=== PATIENT | female | born 1955 | race Caucasian/White ===

== ENCOUNTER → 2016-07-05 | Outpatient (CLI) | payer MEDICARE, MEDICAID ==
[~2016-07-05] MED LIST: /ADVA50050 INH; /DULO30CA OR; /ONDA4TA; ACET500C; ASPI81TA63 OR; DARV100T; DEPA500T2; FIORICET OR; FLEXERIL; LIDO5DIS TD; Maxalt OR; NEUR100C; NEUR100C OR; PLAV75TA2 OR; PROP10TAB OR; SKEL800T5 OR; SOMA350T OR; THERGRAN; VENTAER INH; VICODINES TAB OR; VOLT1GEL; ZOMI5TAB
--- NOTE | 2016-07-05 16:58 | REPMRS ---
Patient History The patient states she has not had a clinical breast exam in over a year. Patient is postmenopausal. Family history of ovarian cancer in maternal aunt, pancreatic cancer in maternal aunt, and colorectal cancer in maternal aunt. Benign stereotactic core biopsy of the left breast. Digital Woman Screen Mammo: July 05, 2016 - Exam #: [id number] Bilateral CC and MLO view(s) were taken. Technologist: Rufina Mauricio, Technologist Prior study comparison: September 29, 2011, digital bilateral screening mammo, performed at [facility]. August 19, 2009, bilateral screening mammogram, performed at [facility]. May 29, 2008, bilateral screening mammogram, performed at [facility]. FINDINGS: There are scattered fibroglandular densities. There has been no change in the appearance of the mammogram from the prior studies. There is a mild amount of scattered fibroglandular density which is fairly symmetric. There is no interval development of dominant mass, architectural distortion, or clustered microcalcification suggestive of malignancy. ASSESSMENT: BI-RADS/ACR category 1 mammogram. Negative. Recommendation Routine screening mammogram in 1 year (for women over age 40). This mammogram was interpreted with the aid of an FDA-approved computer-aided dectection system. Electronically Signed By: Christiano Haq MD 07/05/16 [id number]
--- NOTE | 2016-07-07 09:10 | DEXA ---
AP SPINE L1 - L4 1.191 0.0 0.8 LT FEMUR TOTAL 1.016 0.1 0.7 RT FEMUR TOTAL 0.968 -0.3 0.3 TOTAL BODY TOTAL OTHER DUAL FEMUR FRAX* ASSESSMENT Risk factors: Tobacco user. 10 year probability of fracture Major osteoporotic fracture 7.7 % Hip fracture 1.0 % COMMENTS: Normal bone densitometry of the spine. There is low bone density of hips. The density of the spine is decreased 11.2% since the initial exam on 2002. The spine density is decreased 7.5% since the most recent exam on 08/19/2009. The density of the left hip has decreased 7.7% since the initial exam on 2002. The density of the left hip has decreased 2.6% since the most recent exam on 04/2010. The density of the right hip has decreased 10.6% since the initial exam on 08/11. The density of the right hip has decreased 4.5% since the most recent exam on . FOLLOW-UP: Recommendation for the next bone density exam: 2 years. SARAHD
== END ==
LOC: M WHC 13:07
PROVIDERS: ATTEND Family Medicine
DX: Z12.31 Encounter for screening mammogram for malignant neoplasm of breast (principal); Z13.820 Encounter for screening for osteoporosis; Z78.0 Asymptomatic menopausal state; Z92.89 Personal history of other medical treatment
CPT/HCPCS: 77080; G0202

== ENCOUNTER → 2016-08-30 | Outpatient (CLI) | payer MEDICAID, MEDICARE ==
--- NOTE | 2016-08-30 11:36 | REP ---
Clinical: Lung screening. History of smoking. Technique: Axial low-dose imaging using lung screening technique. Comparison: None. Findings: There is a suspicious, 3.4 x 2.2 cm soft tissue lesion in the right apex (images 14 - 23) lower lobe on glass opacity/atelectasis also noted. The mediastinum is incompletely evaluated and adenopathy cannot be discerned. No pleural effusion. No pneumothorax. Skeletal structures intact. Impression: Lung-RADS category 4X lesion is suspicious for neoplasm and further workup is advised. Consider biopsy, contrast enhanced chest CT, or PET CT. Signed by Nacho Herron MD 08/30/2016 11:28 A
== END ==
LOC: M RAD 10:51
PROVIDERS: ATTEND Family Medicine
DX: Z12.2 Encounter for screening for malignant neoplasm of respiratory organs (principal); F17.210 Nicotine dependence, cigarettes, uncomplicated; R93.8 Abnormal findings on diagnostic imaging of other specified body structures

== ENCOUNTER → 2016-09-07 | Outpatient (REF) | payer MEDICARE ==
[2016-09-07 14:18] LABS: INR 0.98
== END ==
LOC: M LAB REF 13:45
PROVIDERS: ATTEND Internal Medicine Pulmonary Disease
DX: Z01.818 Encounter for other preprocedural examination (principal); R91.1 Solitary pulmonary nodule

== ENCOUNTER → 2016-09-20 | Outpatient (CLI) | payer MEDICARE ==
--- NOTE | 2016-09-20 14:22 | REP ---
PET/CT: History: Solitary pulmonary nodule. Comparisons: Low-dose lung cancer screening chest CT study August 30, 2016 TECHNIQUE: 71 minutes following the intravenous injection of a 7.8 mCi dose of F-18 FDG, three-dimensional PET scintigraphy is acquired from the skull base to the proximal thighs. Triplanar noncontrast CT scanning is acquired through the same anatomic range for attenuation correction, and image registration with scan parameters optimized to minimize radiation exposure to the patient. PET scintigraphy and CT datasets were fused and displayed on a workstation with multiplanar and projection display capability. PET/CT Findings: There is hypermetabolic uptake in a bilobed right upper lobe lung mass corresponding to the findings on recent screening lung CT. Maximum standard uptake value in this lesion is 10.0. No hypermetabolic hilar or mediastinal uptake is seen. Head and neck soft tissues are unremarkable. No axillary hypermetabolic uptake is seen. There is a small 12 mm nodule in the lateral limb of the left adrenal gland but this is not hypermetabolic. No abnormal hypermetabolic uptake is seen in the abdomen or pelvis. Post cholecystectomy clips are seen. No abnormal skeletal hypermetabolic uptake is observed. Impression: The known right upper lobe lung mass is hypermetabolic, as to be value 10.0. No other abnormal hypermetabolic uptake is appreciated. Signed by Garo Haq MD 09/20/2016 02:13 P
== END ==
LOC: M RAD 08:46
PROVIDERS: ATTEND Internal Medicine Pulmonary Disease
DX: R91.1 Solitary pulmonary nodule (principal)
CPT/HCPCS: 78815; A9552

== ENCOUNTER → 2016-09-28 | Outpatient (REF) | payer MEDICARE, MEDICAID ==
[~2016-09-28] MED LIST changes: +ADV500INH INH; +ALB2.5NEB INH; +ASPI1TAB PO; +BUTACAP78 PO; +DULO1CAP3 PO; +MAGN1TAB25 PO; +MEMA1TAB PO; +NEUR300C PO; +OXYC30TA72 PO; +PLAV75TA38 PO; +PROA1AER INH; +PROT1TAB2 PO; +ROPI0.5T PO; +SENN8.6T54 PO; +ZALE10CA PO; +ZANA4TAB PO; +ZONI100C2 PO
[2016-09-28 11:37] LABS: MEAN CORPUSCULAR HEMOGLOBIN 25.7 pg (27.0-33.0); MEAN CORPUSCULAR HGB CONC 31.3 g/dl (32.0-36.5); MEAN CORPUSCULAR VOLUME 82.1 fl (80.0-96.0); RED CELL DISTRIBUTION WIDTH 14.8 % (11.5-14.5)
== END ==
LOC: M SFHCPLAZ 10:18
PROVIDERS: ATTEND Family Medicine
DX: K62.5 Hemorrhage of anus and rectum (principal)
CPT/HCPCS: 36415; 85027; 99497; G0463

== ENCOUNTER → 2016-10-05 | Outpatient (CLI) | payer MEDICARE ==
[~2016-10-05] MED LIST changes: +ACETAMINOPHEN 325 MG TAB As Ordered ONE; +FLUMAZENIL 0.5 MG/5 ML VIAL As Ordered ONE; +LIDOCAINE 1% MDV 20ML VIAL As Ordered ONE; +MIDAZOLAM INJ 2 MG/2 ML VIAL (J2250) As Ordered ONE; +PERCOCET 5MG/325MG TAB As Ordered ONE
--- NOTE | 2016-10-05 13:36 | REP ---
POSTBIOPSY CHEST: Single PA view of the chest is performed following right lung biopsy. There is a small right apical pneumothorax. Air gap is 2.8 cm maximally. Right upper lobe nodule is seen. Mild atelectatic changes are seen in the lung bases. IMPRESSION: Small right apical pneumothorax status post right lung biopsy. Signed by Quinn Cavazos MD 10/05/2016 04:50 P
--- NOTE | 2016-10-05 22:32 | REP ---
CHEST, SINGLE VIEW: Single view of the chest is performed, status post right lung biopsy. Small right apical pneumothorax is unchanged since the most recent examination of 2:35 pm. Air gap is about 3.7 cm. There are no other acute changes. IMPRESSION: Stable small right apical pneumothorax. Signed by Quinn Cavazos MD 10/06/2016 04:33 P
--- NOTE | 2016-10-05 23:25 | REP ---
POST BIOPSY CHEST: Post biopsy chest radiograph performed. Right apical pneumothorax has a maximum air gap of 4 cm, mildly increased since the prior study. There are again atelectatic changes in each lung base. IMPRESSION: Slight increase in right apical pneumothorax. Signed by Quinn Cavazos MD 10/06/2016 04:33 P
--- NOTE | 2016-10-06 05:49 | REP ---
CT GUIDED RIGHT UPPER LOBE LUNG BIOPSY: The procedure was performed under the direct supervision of Dr. Cavazos. The patient has a history of a 3.4 x 2.2 cm soft tissue lesion in the right apex seen on a previous CT scan dated 08/30/2016. This was seen as hypermetabolic on a previous PET scan performed on 09/20/2016. The risks and benefits of the procedure were explained to the patient and informed consent was obtained. The right upper lobe lung mass was localized using CT guidance. The skin was prepped and draped in a sterile fashion. 1% Xylocaine was used as a local anesthetic. Using CT guidance, a 19-20 gauge co-axial needle biopsy system was inserted and advanced into the mass. Four core biopsy samples were obtained and sent to the lab. The patient tolerated the procedure well and there were no immediate complications. On the 2 hour followup post biopsy chest x-ray, the patient had developed a small right apical pneumothorax. Dr. Gomez was made aware of these findings at the time of the procedure. Another chest x-ray performed 2 hours later showed a small increase in the size of the pneumothorax. Another chest x-ray was performed 1 hour later and showed that the pneumothorax is stable. The patient will be released home and will come back tomorrow morning for a followup chest x-ray. Her O2 saturations on room air are 94% as they were when she arrived. The patient complained of minimal amount of chest discomfort. Her vital signs are stable. Reviewed by PATRICK Miller 10/06/2016 05:30 PEdited and Signed by Quinn Cavazos MD 10/09/2016 05:33 P
== END ==
LOC: M RADPRO 09:13
PROVIDERS: ATTEND Internal Medicine Pulmonary Disease
DX: C34.90 Malignant neoplasm of unspecified part of unspecified bronchus or lung (principal); J95.811 Postprocedural pneumothorax; Z72.0 Tobacco use; Z88.8 Allergy status to other drugs, medicaments and biological substances; Z79.82 Long term (current) use of aspirin; Z79.899 Other long term (current) drug therapy

== ENCOUNTER 2016-10-06 07:56 | Inpatient (IN) | payer MEDICARE ==
[~2016-10-06] VITALS: Ht 167.6 cm; Wt 85.3 kg
[~2016-10-06 07:56] MED LIST changes: -ACETAMINOPHEN 325 MG TAB As Ordered ONE; -ADV500INH INH; -ALB2.5NEB INH; -ASPI1TAB PO; -BUTACAP78 PO; -DULO1CAP3 PO; -FLUMAZENIL 0.5 MG/5 ML VIAL As Ordered ONE; -LIDOCAINE 1% MDV 20ML VIAL As Ordered ONE; -MAGN1TAB25 PO; -MEMA1TAB PO; -MIDAZOLAM INJ 2 MG/2 ML VIAL (J2250) As Ordered ONE; -NEUR300C PO; -OXYC30TA72 PO; -PERCOCET 5MG/325MG TAB As Ordered ONE; -PLAV75TA38 PO; -PROA1AER INH; -PROT1TAB2 PO; -ROPI0.5T PO; -SENN8.6T54 PO; -ZALE10CA PO; -ZANA4TAB PO; -ZONI100C2 PO
--- NOTE | 2016-10-06 08:38 | REP ---
CHEST: Single PA expiratory view of the chest is performed. Right pneumothorax is again seen. It is mildly increased in size. The air gap at the apex is 4.7 cm. There are mild atelectatic changes in the lung bases. IMPRESSION: Mild increase in size of right pneumothorax compared to prior study of 10/05/2016. Signed by Quinn Cavazos MD 10/06/2016 04:35 P
[2016-10-06] MEDS ORDERED: KCL 20MEQ IN D5/NS 1000ML 1,000 ML IV SCH (09:36)
[2016-10-06] MEDS ORDERED: NORCO, ANEXSIA 5/325MG TABLET (HYDROcodone/ACETAMINOPHEN) PO PRN (09:45)
[2016-10-06] MEDS ORDERED: LEVALBUTEROL 1.25 MG/0.5 ML CONCENTRATE NEB NEB PRN (09:45)
[2016-10-06] MEDS ORDERED: BISACODYL 10 MG SUPP PR PRN (09:45)
[2016-10-06] MEDS ORDERED: PERCOCET 5MG/325MG TAB PO PRN ×2 (09:45)
[2016-10-06] MEDS ORDERED: ACETAMINOPHEN TAB 650MG DOSE (2X325MG) PO PRN (09:45)
[2016-10-06 10:37] LABS: BASO % 0.3 % (0.0-1.0); EOS # 0.1 K/mm3 (0.0-0.50); LARGE UNSTAINED CELL # 0.1 K/mm3 (0.0-0.4); LARGE UNSTAINED CELL % 1.6 % (0.0-4.0); LYMPH # 2.5 K/mm3 (1.5-4.5); LYMPH % 32.3 % (24.0-44.0); MEAN CORPUSCULAR HEMOGLOBIN 26.8 pg (27.0-33.0); MEAN CORPUSCULAR HGB CONC 32.6 g/dl (32.0-36.5); MEAN CORPUSCULAR VOLUME 82.2 fl (80.0-96.0); MONO # 0.4 K/mm3 (0.0-0.8); MONO % 4.9 % (0.0-5.0); NEUTROPHILS # 4.7 K/mm3 (1.8-7.7); PLATELET COUNT, AUTOMATED 319 k/mm3 (150-450); RED CELL DISTRIBUTION WIDTH 14.8 % (11.5-14.5); WHITE BLOOD COUNT 7.8 K/mm3 (4.0-10.0)
[2016-10-06] MEDS ORDERED: PLAV75TA38 PO (10:55)
[2016-10-06] MEDS ORDERED: SENN8.6T54 PO (10:55)
[2016-10-06] MEDS ORDERED: PROA1AER INH (10:55)
[2016-10-06] MEDS ORDERED: ZALE10CA PO (10:55)
[2016-10-06] MEDS ORDERED: DULO1CAP3 PO (10:55)
[2016-10-06] MEDS ORDERED: MEMA1TAB PO (10:55)
[2016-10-06] MEDS ORDERED: ZONI100C2 PO (10:55)
[2016-10-06] MEDS ORDERED: NEUR300C PO (10:55)
[2016-10-06] MEDS ORDERED: BUTACAP78 PO (10:55)
[2016-10-06] MEDS ORDERED: ADV500INH INH (10:55)
[2016-10-06] MEDS ORDERED: ASPI1TAB PO (10:55)
[2016-10-06] MEDS ORDERED: OXYC30TA72 PO (10:55)
[2016-10-06] MEDS ORDERED: ROPI0.5T PO (10:55)
[2016-10-06] MEDS ORDERED: ZANA4TAB PO (10:57)
[2016-10-06] MEDS ORDERED: MAGN1TAB25 PO (10:57)
[2016-10-06 10:58] LABS: ANION GAP 6 MEQ/L (8-16); BLOOD UREA NITROGEN 12 MG/DL (7-18); CALCIUM LEVEL 8.9 MG/DL (8.8-10.2); CARBON DIOXIDE LEVEL 28 MEQ/L (21-32); CHLORIDE LEVEL 107 MEQ/L (98-107); CREATININE FOR GFR 0.98 MG/DL (0.55-1.02); GLOMERULAR FILTRATION RATE > 60.0 (>45); GLUCOSE, FASTING 100 MG/DL (80-110); SODIUM LEVEL 141 MEQ/L (136-145)
[2016-10-06] MEDS ORDERED: PROT1TAB2 PO (10:58)
[2016-10-06] MEDS ORDERED: ALB2.5NEB INH (10:59)
--- NOTE | 2016-10-06 11:33 | REP ---
Chest one-view HISTORY: Pneumothorax Comparison: 08:14 a.m. 10/06/2016 Increased density is present in the lower lobes and right upper lobe consistent with atelectasis or infiltrate. The heart is normal in size. The pulmonary vasculature is normal in appearance. A chest tube is present in the right hemithorax. A very small right pneumothorax is present. Impression 1. Bibasilar and right upper lobe atelectasis or infiltrates. 2. Very small right pneumothorax. Signed by Artemio Joaquin MD 10/06/2016 11:25 A
[2016-10-06 12:00] VITALS: BP 149/86
[2016-10-06] MEDS: DOCUSATE SODIUM 100 MG CAP PO SCH ×2 (12:41→21:13)
[2016-10-06] MEDS: HEPARIN SOD (PORCINE) 5000 UNITS/ML VIAL SC SCH ×2 (12:41→21:12)
[2016-10-06] MEDS: PANTOPRAZOLE 40MG INJ (PROTONIX) (C9113) IV SCH (12:41)
[2016-10-06] MEDS: MOM 30ML SUSPENSION UDC PO SCH (12:41)
[2016-10-06] MEDS: KETOROLAC 30 MG/ML VIAL (J1885) IV SCH ×2 (12:43→18:29)
[2016-10-06] MEDS: ONDANSETRON 4MG/2ML VIAL (J2405) IV PRN (13:20)
[2016-10-06] MEDS: LEVALBUTEROL 1.25 MG/0.5 ML CONCENTRATE NEB NEB SCH ×2 (13:25→18:52)
[2016-10-06] MEDS: GABAPENTIN 300 MG CAP PO SCH ×2 (15:25→21:13)
[2016-10-06] MEDS: ASPIRIN 81 MG ENTERIC TAB PO SCH (15:26)
[2016-10-06] MEDS: DULoxetine 30 MG CAP (CYMBALTA) PO SCH (15:26)
[2016-10-06 16:00] VITALS: BP 126/62
[2016-10-06] MEDS ORDERED: tiZANidine 4 MG TAB PO PRN (16:45)
--- NOTE | 2016-10-06 17:27 | HPE ---
DATE OF ADMISSION: 10/06/2016 Patient seen at the request of Dr. Cavazos of Radiology. The patient underwent a lung biopsy today and sustained a pneumothorax, which has gotten bigger with more symptomatology of shortness of breath and discomfort. HISTORY OF THE PRESENT ILLNESS: The patient is a 60-year-old white female who was first seen by Dr. Gomez at the end of August for evaluation of a screening CT scan, which showed a right-sided lesion. This was thought to be suspicious for carcinoma given her long smoking history and was referred for a needle biopsy. The patient is not able to give a very accurate history of being short of breath today; however, Dr. Gomez noted that she had a cough, which was productive of thick, brown sputum. She denies hemoptysis but felt that she was wheezing. She had shortness of breath by walking half a block and could not climb a flight of stairs. She also noted chest pressure and heaviness when she was doing activities, such as vacuuming and lifting. She also feels lying flat and was sleeping in a recliner for 4-5 years. She experiences paroxysmal nocturnal dyspnea (PND) on a nightly basis. There was no fever or chills but has transient night sweats that she has had for quite a while. She has not lost any weight but rather gained weight. PAST MEDICAL HISTORY: Migraines. Obstructive sleep apnea. History of cerebrovascular accident with residual left-sided weakness. Hiatal hernia. Gastroesophageal reflux disease (GERD). Mood swings with depression. Dementia. Tobacco abuse. PAST SURGICAL HISTORY: In the remote past, a cholecystectomy and a hysterectomy. MEDICATIONS AT HOME: Include: - Advair Diskus 500/50 one puff twice a day - Ventolin HFA two puffs four times a day as needed for shortness of breath - OxyContin 30 mg twice a day for chronic pain - gabapentin 300 mg three times a day - 5 mg as needed for pain - albuterol sulfate 2.5 mg four times a day as needed for shortness of breath - aspirin 81 mg daily - magnesium 400 mg daily - zonisamide 100 mg twice a day - Plavix 75 mg daily - duloxetine 60 mg daily - memantine 5 mg twice a day - pantoprazole 40 mg daily - trazodone 50 mg nightly TRAVEL HISTORY: She has traveled to [place] and [place] in the past. This is no foreign travel. EXPOSURES: She has one dog at home. No cats or birds. No tuberculosis exposure. 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 HABITS: Smokes anywhere from one to three packs per day. She has cut down recently to one pack a day, but has had a history of smoking three packs a day for the past 40 years. No alcohol. REVIEW OF SYSTEMS: CONSTITUTIONAL: See history of the present illness. EYES: Without diplopia. Without transient monocular blindness. Without prior jaundice. NOSE: Without epistaxis. MOUTH: RESPIRATORY: See history of the present illness. CARDIAC: See history of the present illness. Without prior myocardial infarction. GASTROINTESTINAL: Without nausea, vomiting, diarrhea, constipation, melena, hematochezia. GENITOURINARY: Without hematuria or dysuria. ENDOCRINE: Without diagnosed diabetes or hypothyroidism. HEMATOLOGIC: With easy bruisability on her Plavix. NEUROLOGIC: Has memory problems and confusion with left-sided weakness. There is a history of a cerebrovascular accident in the past. PSYCHIATRIC: Per history of the present illness. FAMILY HISTORY: Mother at the age of 80 with leukemia and father at 86 with kidney disease and heart disease. PHYSICAL EXAMINATION: Well developed, well nourished, white female in slightly some acute distress with shortness of breath and chest discomfort on the right side. VITAL SIGNS: Temperature 96.5, pulse 59 with a regular rate and rhythm, respiratory rate of 20 without the use of accessory muscles. She is 99% saturated on 4 liters nasal cannula and blood pressure is 149/86. EYES: Pupils equal, round and reactive to light. Extraocular motor intact. Sclerae nonicteric. NOSE: Without deformity. MOUTH: Shows her mucous membranes to be pink and moist. Lips and commissures without lesions. There is no thrush. NECK: Neck is supple. There is no jugular venous distention. No subcutaneous emphysema. Trachea is midline. There is no lymphadenopathy. She has 2+ carotid upstrokes. No bruits. LUNGS: Show markedly decreased breath sounds on the right side with a hyperresonant percussion note on the right side. Left side shows normal vesicular sounds. CARDIAC: Exam is without murmurs, clicks, gallops or rubs. I cannot feel her point of maximum impulse (PMI). S1, S2 are normal. ABDOMEN: Soft, nontender. Bowel sounds are positive. There is no hepatomegaly. No costovertebral angle tenderness. EXTREMITIES: Show no pretibial edema, no calf tenderness. No differential swelling of the upper extremities. SKIN: Warm, dry and perfused without cyanosis or mottling, including that of the nail beds and the knees. NEUROLOGIC: Shows II-XII grossly intact. Gross motor and gross sensation intact. Gait is not tested. PSYCHIATRIC: Shows her to be awake and alert, oriented times three with appropriate mood and affect and conversational. Her white count today is 7.8 with a hemoglobin and hematocrit of 11.5 and 35.3 and a platelet count of 319. Differential shows 60% neutrophils, 32% lymphocytes, 4% monocytes. There are no immature forms, no toxic granulations. Electrolytes are normal with a BUN and creatinine of 12 and 0.98, a glucose of 100 and a calcium of 8.9. Her chest x-ray shows a 40-50% pneumothorax on the right side. Costophrenic angles are sharp. Mediastinum is in the midline. Her CT scan done on 08/30/2016 as a screening exam shows a 3-1/2 x 2 cm spiculated mass in the right upper lobe. There is some ground glass atelectatic changes in the lower lobes. I do not see significant mediastinal lymphadenopathy. It is done as a screening CT, and there are no tissue windows. Adrenals look grossly intact, and I see no lesions on the liver on the lung windows. IMPRESSION: 1. Right pneumothorax, status post biopsy yesterday, worsening. 2. Right upper lobe lung mass. Final pathology pending. 3. Chronic obstructive pulmonary disease. 4. Early dementia. 5. Migraines. 6. Obstructive sleep apnea. 7. History of cerebrovascular accident. 8. Hiatal hernia. 9. Gastroesophageal reflux disease. 10. Chronic pain. PLAN AND DISCUSSION: I will place a chest tube immediately. We will then follow her in the hospital as the lung comes up and stays up. We will see if she has a continued air leak. We will await pathology results, whether or not she is and out of the hospital and make recommendations from there. 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 It should be noted that her pulmonary function tests (PFTs) show an FEV1 of 2.02, which is 76% of predicted and a diffusing capacity of 17.68, which was 80% of predicted on a PFT done on 09/13/2016.
--- NOTE | 2016-10-06 17:29 | RO ---
DATE OF PROCEDURE: 10/06/2016 PREPROCEDURE DIAGNOSIS: Pneumothorax, status post biopsy yesterday, increasing in size and shortness of breath. POSTPROCEDURE DIAGNOSIS: Pneumothorax, status post biopsy yesterday, increasing in size and shortness of breath. PROCEDURE: Insertion of right anterior chest tube. SURGEON: Dr. Ankur Helms ROPING MACHINE TENDER: ANESTHESIA: DESCRIPTION OF PROCEDURE: Under satisfactory moderate sedation, achieved with 3 mg of Versed, the patient was prepped and draped in the usual sterile fashion. Incision was made over the second rib and a tunnel was created in the intercostal space. A #20 chest tube was placed without difficulty and secured to the chest wall with a #2 Tevdek suture. Chest tube was connected to suction. The patient tolerated the procedure well and a chest x-ray is pending.
[2016-10-06 20:00] VITALS: BP 123/59
[2016-10-06] MEDS: ZONISAMIDE 100 MG CAP (ZONEGRAN) PO SCH (21:12)
[2016-10-06] MEDS: MEMANTINE 5MG TABLET (NAMENDA) PO SCH (21:12)
[2016-10-06] MEDS: rOPINIRole 0.25 MG TAB(REQUIP) PO SCH (21:12)
[2016-10-06] MEDS: ADVAIR DISKUS 500/50 INH PWD INH SCH (22:23)
[2016-10-06 23:59] VITALS: BP 123/60
[2016-10-07] VITALS (7 sets, daily range): BP systolic 118–159; BP diastolic 56–78; O2SAT 91
[2016-10-07] MEDS: KETOROLAC 30 MG/ML VIAL (J1885) IV SCH ×4 (00:55→18:15)
[2016-10-07] MEDS: LEVALBUTEROL 1.25 MG/0.5 ML CONCENTRATE NEB NEB SCH ×4 (02:12→19:05)
[2016-10-07 05:28] LABS: BASO % 0.3 % (0.0-1.0); EOS # 0.1 K/mm3 (0.0-0.50); LARGE UNSTAINED CELL # 0.1 K/mm3 (0.0-0.4); LARGE UNSTAINED CELL % 1.7 % (0.0-4.0); LYMPH # 1.9 K/mm3 (1.5-4.5); LYMPH % 25.1 % (24.0-44.0); MEAN CORPUSCULAR HEMOGLOBIN 26.6 pg (27.0-33.0); MEAN CORPUSCULAR HGB CONC 31.8 g/dl (32.0-36.5); MEAN CORPUSCULAR VOLUME 83.5 fl (80.0-96.0); MONO # 0.4 K/mm3 (0.0-0.8); MONO % 5.3 % (0.0-5.0); NEUTROPHILS # 5.1 K/mm3 (1.8-7.7); NEUTROPHILS % 66.5 % (36.0-66.0); PLATELET COUNT, AUTOMATED 290 k/mm3 (150-450); RED CELL DISTRIBUTION WIDTH 14.9 % (11.5-14.5); WHITE BLOOD COUNT 7.6 K/mm3 (4.0-10.0)
[2016-10-07 05:40] LABS: ANION GAP 6 MEQ/L (8-16); BLOOD UREA NITROGEN 16 MG/DL (7-18); CALCIUM LEVEL 8.3 MG/DL (8.8-10.2); CARBON DIOXIDE LEVEL 28 MEQ/L (21-32); CHLORIDE LEVEL 109 MEQ/L (98-107); GLOMERULAR FILTRATION RATE > 60.0 (>45); GLUCOSE, FASTING 132 MG/DL (80-110); POTASSIUM SERUM 3.9 MEQ/L (3.5-5.1); SODIUM LEVEL 143 MEQ/L (136-145)
[2016-10-07] MEDS: ADVAIR DISKUS 500/50 INH PWD INH SCH ×2 (07:42→20:05)
[2016-10-07] MEDS: MOM 30ML SUSPENSION UDC PO SCH (08:41)
[2016-10-07] MEDS: DOCUSATE SODIUM 100 MG CAP PO SCH ×2 (08:42→20:55)
[2016-10-07] MEDS: ZONISAMIDE 100 MG CAP (ZONEGRAN) PO SCH ×2 (08:42→20:55)
[2016-10-07] MEDS: CLOPIDOGREL 75 MG TAB PO SCH (08:42)
[2016-10-07] MEDS: GABAPENTIN 300 MG CAP PO SCH ×3 (08:42→20:55)
[2016-10-07] MEDS: ASPIRIN 81 MG ENTERIC TAB PO SCH (08:42)
[2016-10-07] MEDS: PANTOPRAZOLE 40MG INJ (PROTONIX) (C9113) IV SCH (08:42)
[2016-10-07] MEDS: MEMANTINE 5MG TABLET (NAMENDA) PO SCH ×2 (08:42→20:55)
[2016-10-07] MEDS: DULoxetine 30 MG CAP (CYMBALTA) PO SCH (08:42)
[2016-10-07] MEDS: ONDANSETRON 4MG/2ML VIAL (J2405) IV PRN (10:40)
--- NOTE | 2016-10-07 15:07 | REP ---
CHEST, TWO VIEWS: HISTORY: Pneumothorax. Linear densities are present in the lower lobes, consistent with atelectasis. The heart is normal in size. The pulmonary vasculature is normal in appearance. A chest tube is present in the right hemithorax. There is no definite pneumothorax. IMPRESSION: 1. Bibasilar atelectasis. 2. There is no pneumothorax. A chest tube is present in the right hemithorax. Signed by Artemio Joaquin MD 10/07/2016 09:02 A
[2016-10-07] MEDS: rOPINIRole 0.25 MG TAB(REQUIP) PO SCH (20:55)
[2016-10-08] VITALS (8 sets, daily range): BP systolic 102–166; BP diastolic 56–80
[2016-10-08] MEDS: KETOROLAC 30 MG/ML VIAL (J1885) IV SCH ×4 (01:21→18:48)
[2016-10-08] MEDS: LEVALBUTEROL 1.25 MG/0.5 ML CONCENTRATE NEB NEB SCH ×4 (02:00→20:00)
[2016-10-08] MEDS ORDERED: SLF 3 ML SYR IV PRN (04:15)
[2016-10-08 05:30] LABS: BASO % 0.3 % (0.0-1.0); EOS # 0.1 K/mm3 (0.0-0.50); EOS % 0.9 % (0.0-3.0); LARGE UNSTAINED CELL # 0.2 K/mm3 (0.0-0.4); LARGE UNSTAINED CELL % 1.5 % (0.0-4.0); LYMPH # 2.5 K/mm3 (1.5-4.5); LYMPH % 23.7 % (24.0-44.0); MEAN CORPUSCULAR HEMOGLOBIN 25.3 pg (27.0-33.0); MEAN CORPUSCULAR HGB CONC 30.1 g/dl (32.0-36.5); MEAN CORPUSCULAR VOLUME 84.2 fl (80.0-96.0); MONO # 0.5 K/mm3 (0.0-0.8); MONO % 5.4 % (0.0-5.0); NEUTROPHILS # 6.7 K/mm3 (1.8-7.7); NEUTROPHILS % 68.2 % (36.0-66.0); PLATELET COUNT, AUTOMATED 300 k/mm3 (150-450); WHITE BLOOD COUNT 9.8 K/mm3 (4.0-10.0)
[2016-10-08 05:50] LABS: ANION GAP 7 MEQ/L (8-16); BLOOD UREA NITROGEN 10 MG/DL (7-18); CALCIUM LEVEL 7.9 MG/DL (8.8-10.2); CARBON DIOXIDE LEVEL 26 MEQ/L (21-32); CHLORIDE LEVEL 108 MEQ/L (98-107); CREATININE FOR GFR 0.95 MG/DL (0.55-1.02); GLOMERULAR FILTRATION RATE > 60.0 (>45); GLUCOSE, FASTING 114 MG/DL (80-110); POTASSIUM SERUM 4.3 MEQ/L (3.5-5.1); SODIUM LEVEL 141 MEQ/L (136-145)
[2016-10-08] MEDS: SLF 3 ML SYR IV SCH ×3 (06:03→21:00)
[2016-10-08] MEDS: ADVAIR DISKUS 500/50 INH PWD INH SCH ×2 (07:44→20:02)
--- NOTE | 2016-10-08 08:42 | IPN ---
DATE: 10/07/2016 This is the first hospital day for Mrs. Ojeda after a right upper lobe mass lung biopsy. Her pain is being well controlled at the chest tube insertion site. Today she complains of rectal bleeding. The nurse confirms that it is bright red blood per rectum. Rectal exam does not show any hemorrhoids. Her vital signs show a T-max of 99.1, with a heart rate that ranges between 81 and 75 and is sinus rhythm with a respiratory rate that is constant at 20. She is 91 to 95% saturated on 4 liters nasal cannula and her blood pressure is ranging between 137/70 to 130/71. Her intake and output the past 24 hours has been recorded as 1365 in and 475 out for a positivity of 890 mL. There is no air leak and there is nothing out the chest tube. Weight today is 83.7 kg compared to 82.2 kg yesterday. On physical examination her lungs show normal vesicular sounds on either side with equal breath sounds on either side. Percussion note is full to the diaphragm. Cardiac exam is without murmurs, clicks, gallops or rubs. I cannot feel her PMI. S1 and S2 are normal. Abdomen is soft, nontender. Bowel sounds are positive. There is no hepatomegaly. No CVA tenderness. Extremities show no pretibial edema. No calf tenderness. No differential swelling of the upper extremities. Skin is warm, dry and perfused without cyanosis or mottling, including that of the nail beds and the knees. Neck is supple. There is no jugular venous distention (JVD). No subcutaneous emphysema. Trachea is midline. Mouth shows his mucous membranes to be pink and moist. Lips and commissures without lesions. No thrush. Eyes show her pupils to be equal and reactive. Extraocular motors intact. Sclera nonicteric. Neuro showed II through XII intact along with gross motor and gross sensation intact. Gait is not tested. Psychiatric shows her to be awake and alert, oriented times three with appropriate and affect and conversational. Rectal shows no hemorrhoids, no fissures. Her white count today is 7.6 with hemoglobin and hematocrit of 11.3 and 35.5, unchanged from yesterday, with a platelet count of 290 and stable. Differential shows 66% neutrophils, 25% lymphocytes, 5% monocytes. There are no immature forms. No toxic granulations. Electrolytes are normal with a BUN and creatinine of 16 and 1.0 and a glucose of 132 with a calcium of 8.3. Her chest x-ray today shows the lung fully expanded to the chest wall. Chest tube is in good place and there is no residual airspace. The costophrenic angles are sharp and there are no infiltrates either on the PA or the lateral views. IMPRESSION: 1. Pneumothorax status post lung biopsy. 2. Right upper lobe mass, final pathology pending. 3. Chronic obstructive pulmonary disease (COPD). 4. Early dementia. 5. Migraines. 6. Obstructive sleep apnea (YAKELIN). 7. History of cerebrovascular accident (CVA) in the past. 8. Hiatal hernia. 9. Gastroesophageal reflux disease (GERD). 10. Chronic pain. 11. Hematochezia. PLAN AND DISCUSSION: She has an appointment with Dr. Lim in November and I will try to move that up. I do not think she needs to be evaluated in the hospital at this point in time and I will discontinue her chest tube suction. Will take a chest x-ray tomorrow. If the lung is still up I will remove the chest tube in the morning.
[2016-10-08] MEDS: ASPIRIN 81 MG ENTERIC TAB PO SCH (09:22)
[2016-10-08] MEDS: ZONISAMIDE 100 MG CAP (ZONEGRAN) PO SCH ×2 (09:22→21:00)
[2016-10-08] MEDS: MOM 30ML SUSPENSION UDC PO SCH (09:23)
[2016-10-08] MEDS: GABAPENTIN 300 MG CAP PO SCH ×3 (09:23→21:00)
[2016-10-08] MEDS: CLOPIDOGREL 75 MG TAB PO SCH (09:23)
[2016-10-08] MEDS: PANTOPRAZOLE 40MG TAB (PROTONIX) PO SCH (09:23)
[2016-10-08] MEDS: MEMANTINE 5MG TABLET (NAMENDA) PO SCH ×2 (09:23→21:00)
[2016-10-08] MEDS: DOCUSATE SODIUM 100 MG CAP PO SCH ×2 (09:23→21:00)
[2016-10-08] MEDS: DULoxetine 30 MG CAP (CYMBALTA) PO SCH (09:23)
[2016-10-08] MEDS ORDERED: FUROSEMIDE 40 MG/4 ML VIAL (J1940) IV ONE (11:15)
[2016-10-08] MEDS: oxyCODONE 15 MG CR TAB PO SCH ×2 (11:25→21:00)
--- NOTE | 2016-10-08 15:08 | REP ---
CHEST, TWO VIEWS: HISTORY: Pneumothorax. COMPARISON: 10/07/2016 Linear densities are present in the lower lobes, consistent with atelectasis. The heart is normal in size. The pulmonary vasculature is normal in appearance. A chest tube is present in the right hemithorax. There is no definite pneumothorax. IMPRESSION: 1. Bibasilar atelectasis. 2. There is no pneumothorax. A chest tube is present in the right hemithorax. Signed by Artemio Joaquin MD 10/08/2016 03:19 P
[2016-10-08] MEDS: ONDANSETRON 4MG/2ML VIAL (J2405) IV PRN ×2 (16:24→21:00)
[2016-10-08] MEDS: rOPINIRole 0.25 MG TAB(REQUIP) PO SCH (21:00)
[2016-10-09] MEDS: KETOROLAC 30 MG/ML VIAL (J1885) IV SCH ×2 (01:00→06:05)
[2016-10-09] MEDS: LEVALBUTEROL 1.25 MG/0.5 ML CONCENTRATE NEB NEB SCH ×2 (01:18→08:00)
[2016-10-09 04:10] VITALS: BP 110/58
[2016-10-09 05:10] LABS: BASO % 0.1 % (0.0-1.0); EOS # 0.1 K/mm3 (0.0-0.50); EOS % 0.9 % (0.0-3.0); LARGE UNSTAINED CELL # 0.1 K/mm3 (0.0-0.4); LARGE UNSTAINED CELL % 1.4 % (0.0-4.0); LYMPH # 1.8 K/mm3 (1.5-4.5); LYMPH % 20.4 % (24.0-44.0); MEAN CORPUSCULAR HEMOGLOBIN 26.1 pg (27.0-33.0); MEAN CORPUSCULAR HGB CONC 31.6 g/dl (32.0-36.5); MEAN CORPUSCULAR VOLUME 82.5 fl (80.0-96.0); MONO # 0.5 K/mm3 (0.0-0.8); MONO % 5.4 % (0.0-5.0); NEUTROPHILS # 6.4 K/mm3 (1.8-7.7); NEUTROPHILS % 71.7 % (36.0-66.0); PLATELET COUNT, AUTOMATED 263 k/mm3 (150-450); RED CELL DISTRIBUTION WIDTH 15.2 % (11.5-14.5); WHITE BLOOD COUNT 8.9 K/mm3 (4.0-10.0)
[2016-10-09 05:24] LABS: CALCIUM LEVEL 7.9 MG/DL (8.8-10.2); CREATININE FOR GFR 1.03 MG/DL (0.55-1.02); GLOMERULAR FILTRATION RATE 58.2 (>45); POTASSIUM SERUM 3.6 MEQ/L (3.5-5.1)
[2016-10-09] MEDS: SLF 3 ML SYR IV SCH (06:00)
[2016-10-09 08:00] VITALS: BP 122/65
--- NOTE | 2016-10-09 08:20 | IPN ---
DATE: 10/08/2016 Ms. Ojeda's pain is being well controlled at chest tube insertion site. She is not coughing and she not complaining of any shortness of breath. Most significantly she had a bowel movement this morning and there was no blood in the stool. Her vital signs show a T-max of 99.8, with a heart rate that ranges between 88 and 96 with a respiratory rate of 18 to 20 without the use of accessory muscles. She is 94 to 95% saturated on room air and her blood pressure is ranging between 166/80 to 132/58. Her intake and output the past 24 hours has been recorded as 2575 in and 1016 out for a positivity of 1400 mL. There is no air leak and she has put out 16 mL from the chest tube. Weight today is 84.8 kg compared to 83.7 kg yesterday. On physical examination she has bibasilar coarse rhonchi on either side during inspiration. These do not completely clear with coughing. Her percussion is full to the diaphragm. Cardiac exam is without murmurs, clicks, gallops or rubs. I cannot feel her PMI. S1 and S2 are normal. Abdomen is soft, nontender. Bowel sounds are positive. There is no hepatomegaly. No CVA tenderness. Extremities show no pretibial edema. No calf tenderness. No differential swelling of the upper extremities. Skin is warm, dry and perfused without cyanosis or mottling, including that of the nail beds and the knees. Neck is supple. There is no jugular venous distention (JVD). No subcutaneous emphysema. Trachea is midline. Mouth shows her mucous membranes to be pink and moist. Lips and commissures without lesions. No thrush. Eyes show her pupils to be equal and reactive. Extraocular motors intact. Sclera nonicteric. Neuro showed II through XII intact along with gross motor and gross sensation intact. Gait is not tested. Psychiatric shows her to be awake and alert, oriented times three with appropriate mood and affect and conversational. Her white count today is 9.8 with hemoglobin and hematocrit of 10.2 and 34.0 and a platelet count of 300 which stable. Differential shows 68% neutrophils, 25% lymphocytes, 5% monocytes. There are no immature forms. No toxic granulations. Her electrolytes are normal with a BUN and creatinine of 10 and 0.95 with a glucose of 114 with a calcium of 7.9. Her chest x-ray shows the lung fully expanded to the chest wall on underwater seal chest tube. Her chest tube is in good place. The costophrenic angles are sharp. I do not see any infiltrates although there may be a little bit of fluid in the fissure. The right upper lobe mass is see on the lateral chest x-ray as well as the PA film. IMPRESSION: 1. Pneumothorax status post lung biopsy right side. 2. Right upper lobe mass, final pathology pending. 3. Chronic obstructive pulmonary disease (COPD). 4. Early dementia. 5. Migraines. 6. Obstructive sleep apnea (YAKELIN). 7. Cerebrovascular accident (CVA) in the past. 8. Hiatal hernia. 9. Gastroesophageal reflux disease (GERD). 10. Chronic back pain. 11. Hematochezia. PLAN AND DISCUSSION: She is complaining of back pain which she chronically has. She is on OxyContin 30 every day and I will restart that rather than the Percocet. I will discontinue her chest tubes. If the lung remains inflated tomorrow, we will plan for discharge in the morning. I will contact Dr. Lim in the morning to see if we can move up her appointment to an earlier date.
[2016-10-09] MEDS: ADVAIR DISKUS 500/50 INH PWD INH SCH (08:52)
[2016-10-09] MEDS: PANTOPRAZOLE 40MG TAB (PROTONIX) PO SCH (08:55)
[2016-10-09] MEDS: GABAPENTIN 300 MG CAP PO SCH (08:55)
[2016-10-09] MEDS: DULoxetine 30 MG CAP (CYMBALTA) PO SCH (08:56)
[2016-10-09] MEDS: ASPIRIN 81 MG ENTERIC TAB PO SCH (08:56)
[2016-10-09] MEDS: CLOPIDOGREL 75 MG TAB PO SCH (08:56)
[2016-10-09] MEDS: oxyCODONE 15 MG CR TAB PO SCH (08:57)
[2016-10-09] MEDS: DOCUSATE SODIUM 100 MG CAP PO SCH (08:57)
[2016-10-09] MEDS: ZONISAMIDE 100 MG CAP (ZONEGRAN) PO SCH (08:58)
[2016-10-09] MEDS: MOM 30ML SUSPENSION UDC PO SCH (08:58)
[2016-10-09] MEDS: MEMANTINE 5MG TABLET (NAMENDA) PO SCH (08:58)
--- NOTE | 2016-10-09 10:05 | DSES ---
DATE OF ADMISSION: 10/06/2016 DATE OF DISCHARGE: 10/09/2016 DISCHARGE DIAGNOSES: 1. Pneumothorax, status post lung biopsy right side. 2. Right upper lobe mass, final pathology pending. 3. Chronic obstructive pulmonary disease (COPD). 4. Early dementia. 5. Migraines. 6. Obstructive sleep apnea (YAKELIN). 7. Status post cerebrovascular accident in the past. 8. Hiatal hernia. 9. Gastroesophageal reflux disease (GERD). 10. Chronic back pain. 11. Hematochezia. HOSPITAL COURSE: Patient is a 60-year-old white female who had a CT screening early lung cancer detection scan, which found a right upper lobe lesion. She underwent a needle biopsy with a resultant pneumothorax. She was acutely short of breath, and a chest tube was placed urgently. Lung reinflated well, and there was no prolonged air leak. Chest tube was removed on the second hospital day with her lung fully expanded to the chest wall. She was also noted to have bright red blood per rectum on the first hospital day, which did not recur. She is seen in regular followup with Dr. Lim. Her chest tube was pulled on the second hospital day, and her chest x-ray on discharge showed the lung fully expanded to the chest wall. She is being discharged on her home medications, which include: - albuterol/ProAir two puffs four times a day as needed shortness of breath - aspirin 81 mg daily - Plavix 75 mg daily - Senna one tablet daily - duloxetine 60 mg daily - gabapentin 300 mg three times a day - magnesium oxide 400 mg daily - amantadine 5 mg twice a day - OxyContin 30 mg every 12 hours - Protonix 40 mg daily - ropinirole 0.5 mg nightly - Advair Diskus 500/50 one puff twice a day - Zanaflex 4 mg as needed muscle spasms - zaleplon 10 mg nightly - zonisamide 100 mg twice a day She will return to see me in 1 week with a chest x-ray for post hospitalization followup, along with discussion of the final pathology when it comes through. She will also see Dr. Lim within 2 weeks. I have spoken with Dr. Lim, and he is willing to move her already scheduled appointment in November up. Her discharge hemoglobin and hematocrit are 9.4 and 29.7 with a BUN and creatinine of 50 and 1.03. Electrolytes are normal. Edited: 10/11/2016 [id number]
== END 2016-10-09 10:19 | disposition home or self-care (01) | DRG 200 ==
LOC: M RAD 07:56 → M PCU 09:39
PROVIDERS: ADMIT Thoracic Surgery (Cardiothoracic Vascular Surgery); ATTEND Internal Medicine Pulmonary Disease
PROC: 0W993ZZ Drainage of Right Pleural Cavity, Percutaneous Approach (ICD-10-PCS; principal; 2016-10-06)
DX: J95.811 Postprocedural pneumothorax (principal); C34.11 Malignant neoplasm of upper lobe, right bronchus or lung; I69.354 Hemiplegia and hemiparesis following cerebral infarction affecting left non-dominant side; K62.5 Hemorrhage of anus and rectum; F17.210 Nicotine dependence, cigarettes, uncomplicated; J44.9 Chronic obstructive pulmonary disease, unspecified; G43.909 Migraine, unspecified, not intractable, without status migrainosus; F03.90 Unspecified dementia, unspecified severity, without behavioral disturbance, psychotic disturbance, mood disturbance, and anxiety; G47.33 Obstructive sleep apnea (adult) (pediatric); K21.9 Gastro-esophageal reflux disease without esophagitis; K44.9 Diaphragmatic hernia without obstruction or gangrene; Z90.49 Acquired absence of other specified parts of digestive tract; Z90.710 Acquired absence of both cervix and uterus; Z79.02 Long term (current) use of antithrombotics/antiplatelets; Z79.82 Long term (current) use of aspirin; Z79.899 Other long term (current) drug therapy

== ENCOUNTER → 2016-10-13 | Outpatient (CLI) | payer MEDICARE ==
[~2016-10-13] MED LIST changes: +ADV500INH INH; +ALB2.5NEB INH; +ASPI1TAB PO; +BUTACAP78 PO; +DULO1CAP3 PO; +MAGN1TAB25 PO; +MEMA1TAB PO; +NEUR300C PO; +OXYC30TA72 PO; +PLAV75TA38 PO; +PROA1AER INH; +PROT1TAB2 PO; +ROPI0.5T PO; +SENN8.6T54 PO; +ZALE10CA PO; +ZANA4TAB PO; +ZONI100C2 PO
--- NOTE | 2016-10-13 18:25 | REP ---
CHEST, TWO VIEWS: REASON: History of nodules. COMPARISON: 10/09/2016 The subcutaneous emphysema seen on the right has decreased. The discoid opacities seen in the lung bases have resolved. The lung lin are otherwise unchanged. The heart is not enlarged. There is no change in the osseous structures. IMPRESSION: As above. No evidence of acute cardiopulmonary disease. If the patient has a lung nodule then CT is recommended. Signed by Vinod Stephens DO 10/13/2016 07:20 P
== END ==
LOC: M SMT 09:32
PROVIDERS: ATTEND Thoracic Surgery (Cardiothoracic Vascular Surgery)
DX: R91.1 Solitary pulmonary nodule (principal)

== ENCOUNTER → 2016-10-30 | Outpatient (CLI) | payer MEDICARE ==
--- NOTE | 2016-10-30 12:28 | REP ---
Clinical: Malignant neoplasm. Technique: PA and lateral. Comparison: 10/13/2016. Findings: There is a vague irregular density suggested in the right upper lung zone predominantly projecting over the fourth posterior interspace. Remainder of lung lin appear stable and within normal limits. No further consolidation, effusion, or pneumothorax. Mediastinum and cardiac silhouette normal. Impression: A vague area of density in the right upper lung zone Signed by Nacho Herron MD 10/30/2016 12:20 P
== END ==
LOC: M SMT 11:40
PROVIDERS: ATTEND Thoracic Surgery (Cardiothoracic Vascular Surgery)
DX: C34.11 Malignant neoplasm of upper lobe, right bronchus or lung (principal)

== ENCOUNTER → 2016-11-21 | Outpatient (CLI) | payer MEDICARE, MEDICAID ==
[~2016-11-21] VITALS: Ht 165.1 cm; Wt 80.7 kg
[~2016-11-21] MED LIST changes: +ATOR40TA PO; +LIDOCAINE 2% INJ 100 MG/5 ML SDV (FOR ANES.) As Ordered ONE; +METO25TA74 PO; +NS 1,000 ML IV ONE; +PROPOFOL 200 MG/20 ML VIAL As Ordered ONE; +fentaNYL 100 MCG/2 ML INJECTION (J3010) As Ordered ONE
--- NOTE | 2016-11-21 08:45 | ROOR ---
Patient Name: Sabrina Ojeda Procedure Date: 11/21/2016 8:29 AM Date of : 1955 Age: 61 Room: [facility] Gender: Female Note Status: Finalized Procedure: Upper Endoscopy + Biopsies Indications: Epigastric abdominal pain Providers: Nestor Lim MD Referring MD: Janeth Traore MD Requesting Provider: Medicines: Monitored Anesthesia Care Complications: No immediate complications. Procedure: Pre-Anesthesia Assessment: - The heart rate, respiratory rate, oxygen saturations, blood pressure, adequacy of pulmonary ventilation, and response to care were monitored throughout the procedure. The Endoscope was introduced through the mouth, and advanced to the second part of duodenum. The upper GI endoscopy was accomplished without difficulty. The patient tolerated the procedure well. Findings: The Z-line was regular and was found 40 cm from the incisors. Diffuse mild inflammation characterized by congestion (edema) and erythema was found in the gastric antrum. Biopsies were taken with a cold forceps for Helicobacter pylori testing. The exam of the duodenum was otherwise normal. Impression: - Z-line regular, 40 cm from the incisors. - Acute gastritis. Biopsied. - The examination was otherwise normal. Recommendation: - Patient has a contact number available for emergencies. The signs and symptoms of potential delayed complications were discussed with the patient. Return to normal activities tomorrow. Written discharge instructions were provided to the patient. - High fiber diet. - Discharge patient to home. - Follow an antireflux regimen. - Continue present medications. - Await pathology results. - Telephone GI clinic for pathology results in 1 week. - Return to referring physician. - The findings and recommendations were discussed with the patient's family. Nestor Lim MD Nestor Lim MD 11/21/2016 8:45:17 AM This report has been signed electronically. Number of Addenda: 0 Note Initiated On: 11/21/2016 8:29 AM Estimated Blood Loss: Estimated blood loss: none.
--- NOTE | 2016-11-21 09:14 | ROOR ---
Patient Name: Sabrina Ojeda Procedure Date: 11/21/2016 8:30 AM Date of : 1955 Age: 61 Room: [facility] Gender: Female Note Status: Finalized Procedure: Total Colonoscopy to cecum + Bx. Indications: Rectal bleeding Providers: Nestor Lim MD Referring MD: Janeth Traore MD Requesting Provider: Medicines: Monitored Anesthesia Care Complications: No immediate complications. Procedure: Pre-Anesthesia Assessment: - The heart rate, respiratory rate, oxygen saturations, blood pressure, adequacy of pulmonary ventilation, and response to care were monitored throughout the procedure. The Colonoscope was introduced through the anus and advanced to the cecum, identified by appendiceal orifice and ileocecal valve. The colonoscopy was performed without difficulty. The patient tolerated the procedure well. The quality of the bowel preparation was poor. Findings: The perianal and digital rectal examinations were normal. An ulcerated partially obstructing large mass was found from 10 to 15 cm proximal to the anus. The mass was partially circumferential (involving two-thirds of the lumen circumference). The mass measured five cm in length. No bleeding was present. Mucosa was biopsied with a cold forceps for histology. Multiple small and large-mouthed diverticula were found in the recto-sigmoid colon, sigmoid colon and descending colon. A single (solitary) ulcer was found in the mid ascending colon. No bleeding was present. No stigmata of recent bleeding were seen. Biopsies were taken with a cold forceps for histology. The exam was otherwise without abnormality. Impression: - Preparation of the colon was poor. - Rule out malignancy, partially obstructing tumor from 10 to 15 cm proximal to the anus. Biopsied. - Diverticulosis in the recto-sigmoid colon, in the sigmoid colon and in the descending colon. - A single (solitary) ulcer in the mid ascending colon. Biopsied. - The examination was otherwise normal. - The examination was otherwise normal. Recommendation: - Patient has a contact number available for emergencies. The signs and symptoms of potential delayed complications were discussed with the patient. Return to normal activities tomorrow. Written discharge instructions were provided to the patient. - Discharge patient to home. - Continue present medications. - Await pathology results. - Return to referring physician. - Refer to a surgeon. - Telephone GI clinic for pathology results. - Check Portal Online for Path Results.([email or web address]) - The findings and recommendations were discussed with the patient's family. Nestor Lim MD Nestor Lim MD 11/21/2016 9:13:51 AM This report has been signed electronically. Number of Addenda: 0 Note Initiated On: 11/21/2016 8:30 AM Estimated Blood Loss: Estimated blood loss: none.
[2016-11-21 09:35] VITALS: BP 119/66
== END | disposition home or self-care (01) ==
LOC: M OPP 07:21
PROVIDERS: ATTEND Internal Medicine Gastroenterology
DX: C18.9 Malignant neoplasm of colon, unspecified (principal); K63.3 Ulcer of intestine; K57.30 Diverticulosis of large intestine without perforation or abscess without bleeding; R10.13 Epigastric pain; K21.9 Gastro-esophageal reflux disease without esophagitis; K29.00 Acute gastritis without bleeding; B96.81 Helicobacter pylori [H. pylori] as the cause of diseases classified elsewhere; I10 Essential (primary) hypertension; E78.00 Pure hypercholesterolemia, unspecified; M79.7 Fibromyalgia; M19.90 Unspecified osteoarthritis, unspecified site; I69.398 Other sequelae of cerebral infarction; F03.90 Unspecified dementia, unspecified severity, without behavioral disturbance, psychotic disturbance, mood disturbance, and anxiety; F33.9 Major depressive disorder, recurrent, unspecified; R56.9 Unspecified convulsions; G43.909 Migraine, unspecified, not intractable, without status migrainosus; J44.9 Chronic obstructive pulmonary disease, unspecified; G47.30 Sleep apnea, unspecified; Z87.891 Personal history of nicotine dependence; Z79.899 Other long term (current) drug therapy; Z79.82 Long term (current) use of aspirin; Z79.51 Long term (current) use of inhaled steroids; Z79.01 Long term (current) use of anticoagulants; Z88.5 Allergy status to narcotic agent; Z88.8 Allergy status to other drugs, medicaments and biological substances
CPT/HCPCS: 36415; 43239; 45380; 82378; 88305; 88313; J3010

== ENCOUNTER → 2016-11-29 | Outpatient (CLI) | payer MEDICARE, MEDICAID ==
[~2016-11-29] MED LIST changes: +GASTROGRAFIN SOLUTION 30ML (Q9963) As Ordered ONE; +ISOVUE-370 76% 100ML VIAL (Q9967) As Ordered ONE; -LIDOCAINE 2% INJ 100 MG/5 ML SDV (FOR ANES.) As Ordered ONE; -NS 1,000 ML IV ONE; -PROPOFOL 200 MG/20 ML VIAL As Ordered ONE; -fentaNYL 100 MCG/2 ML INJECTION (J3010) As Ordered ONE
--- NOTE | 2016-11-29 17:50 | REP ---
CT ABDOMEN PELVIS WITH IV AND ORAL CONTRAST: 11/29/2016. Clinical history: Colon CA rectal mass. She also has a known apex lung carcinoma. Technique: Oral Gastrografin mixture 10 mL and 290 mL of flavored water for two doses of our bowel contrast per protocol along with 100 mL as Isovue 370 scanning through the abdomen and pelvis with delayed images through the liver. Sagittal and coronal reconstructions provided. Findings: No prior pertinent study. CT abdomen: The lung bases show minor dependent atelectatic change on the right. Some underlying fibrotic change. No effusion, infiltrate, nodule or mass in the lung bases. Heart not enlarged. No pericardial thickening or effusion and no hiatal hernia. Stomach well distended with retained food and some oral contrast. Liver is mildly prominent. The right hepatic lobe with a vertical diameter of 18.6 cm. There is no splenomegaly, focal hepatic or splenic lesion evident on equilibrium and delayed phase images. Clips from prior cholecystectomy are noted. Pancreas unremarkable. Adrenal glands intact. Kidneys show function without obstruction, mass or stone. There is no hydronephrosis or hydroureter. Atherosclerotic calcification of the aorta without aneurysm and no periaortic or other mesenteric/retroperitoneal pathologic sized lymphadenopathy in the abdomen proper. Appendix is seen and unremarkable. Fatty ileocecal valve is noted. The terminal ileum grossly unremarkable. Some questionable wall thickening of the cecum and right colon without definite mass or stricture. Stool and contrast are mixed in this location. There is scattered stool in the proximal right colon, flexures and transverse colon through the left colon. I do not see diverticulitis or colitis. Small bowel loops in the abdomen were unremarkable. There is no ventral hernia. Bone windows show lumbar and lower thoracic spine without compression deformity of destructive lesion. There is no spondylolysis. The visualized ribs and the lower chest were unremarkable. CT pelvis: Thickening of the distal rectal wall and anal verge suggested axial and sagittal images. Cannot exclude mass in this location versus proctitis collapse. Rectosigmoid junction shows wall thickening circumferential fashion with mild stricturing suspicious for malignancy. Could be focal colitis as well. No pelvic free fluid. Extensive diverticulosis of the distal left colon and sigmoid above the level of the stricture and mucosal thickening of the distal sigmoid. Small bowel loops grossly intact. No ventral or inguinal hernia. Impression: 1. Distal left sigmoid colon to the junction with the rectum with thickened wall and infiltration of adjacent fat, suspicious for colonic malignancy. No gross adenopathy, however The differential consideration of focal colitis. 2. Likewise thickening distal rectum and anal verge could also represent mass or focal proctitis. 3. The small bowel loops unremarkable. The remainder of the colon shows extensive diverticulosis without diverticulitis of the distal left colon and proximal midsigmoid above the level of the stricture. 4. Sigmoid and proximal right colon have questionable wall thickening but stool and contrast seen in this region and no inflammatory changes in the fat adjacent. No other areas of colitis, diverticulitis, stricture or mass. 5. Liver, spleen, kidneys, adrenal glands, pancreas, gallbladder, stomach were unremarkable. Signed by Gera Sarkar MD 11/29/2016 08:25 P
== END ==
LOC: M RAD 15:10
PROVIDERS: ATTEND Surgery
DX: C18.7 Malignant neoplasm of sigmoid colon (principal)
CPT/HCPCS: 74177; Q9963; Q9967

== ENCOUNTER 2016-12-22 10:20 | Inpatient (IN) | payer MEDICARE, MEDICAID ==
--- NOTE | 2016-12-20 09:28 | HPE ---
DATE OF ADMISSION: 12/22/2016 ADMITTING DIAGNOSIS: Rectal carcinoma. HISTORY OF PRESENT ILLNESS: The patient is a 61-year-old woman with a significant history of smoking cigarettes. She was referred for a screening CT of the chest based on her smoking history. This revealed a 3.4 x 2.2 cm soft tissue lesion in the right lower lobe. This was felt to be suspicious for carcinoma. This screening study was done on August 30, 2016 at [facility]. She subsequently underwent a CT-guided biopsy, which was performed on 10/05/2016. She developed a postbiopsy pneumothorax which led to placement of a chest tube and admission to [facility]. The biopsy confirmed moderate to poorly differentiated squamous cell carcinoma. In the course of her treatment for her pneumothorax and in preparation for surgery for her lung lesion, she complained of rectal bleeding. As a result of the rectal bleeding, she was referred to Dr. Lim of gastroenterology who performed an EGD and colonoscopy on November 21. The EGD revealed some diffuse mild inflammation of the gastric antrum. Biopsies revealed some mild chronic inflammation and a special stain was positive for Helicobacter Pylori. Her colonoscopy revealed a large partially circumferential mass extending from approximately 10 to 15 cm proximal to the anus. Biopsies revealed high-grade adenocarcinoma with mucinous features. The patient had a CEA level on November 21 that was 1.1. She has been discussed at the [facility] tumor board. 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 It was determined that proceeding with the surgery for her rectal cancer seemed to make more sense than doing the lung cancer first. She is now being admitted to undergo a robotic-assisted laparoscopic low anterior resection on December 22. She will be performing a mechanical and antibiotic bowel preparation utilizing SUPREP, neomycin, and Flagyl the day before admission. Because the tumor was not marked at the time of her colonoscopy, and to facilitate determination of the distal surgical margin, she will undergo spot marking of the distal margin for resection at the beginning of her surgical procedure. MEDICATION ALLERGIES: Are reported to 1. CODEINE, which apparently causes confusion. 2. TRAMADOL, which has led to nausea and vomiting. 3. VALPROIC ACID with an uncertain adverse reaction. 4. MORPHINE, which led to confusion. 5. DEPAKOTE, which she reports led to hair loss. CURRENT MEDICATIONS: Include: - tizanidine 4 mg p.o. t.i.d. as needed - OxyContin 30 mg p.o. q.12 h - duloxetine 60 mg delayed release once daily - clopidogrel 75 mg p.o. daily - aspirin 81 mg p.o. daily - zonisamide 100 mg one capsule twice daily - memantine 5 mg p.o. twice daily - Senexon S 1 tablet p.o. in the evening daily as needed - albuterol nebulizer four times daily as needed - Zofran 4 mg p.o. q. 6 hours as needed - gabapentin 300 mg three times daily - MiraLAX 17 grams p.o. daily at bedtime - rabeprazole 20 mg p.o. daily - Advair Diskus 500/50 micrograms one puff twice daily - Ventolin inhalation two puffs as needed every 4 hours - atorvastatin 40 mg p.o. once a day - metoprolol succinate ER 25 mg p.o. daily MEDICAL HISTORY: Significant for chronic neck and back pain. She has a history of fibromyalgia. She has suffered a stroke in 2007 and has followed with Dr. Joseph for some left arm and leg neuropathy. She reports a history of migraines and also carries a diagnosis of dementia. She has some chronic obstructive pulmonary disease. She has a history of sleep apnea. She has gastroesophageal reflux disease. She has some stress urinary incontinence. She did undergo a regadenoson cardiac stress test in November 2016, which was reportedly normal. SURGICAL HISTORY: Significant for a cholecystectomy in 1975. She had a hysterectomy in 1977. She underwent a left breast biopsy in 1995. She had a bilateral salpingo-oophorectomy in 2007. She had a colonoscopy and EGD in 2011 and then again recently in November 2016. She had a benign nodule removed from her throat previously. She required a chest tube for her pneumothorax in September. SOCIAL HISTORY: The patient is a former smoker. She denies any alcohol use and uses no recreational drugs. She is not and is not working due to disability. FAMILY HISTORY: Noncontributory. REVIEW OF SYSTEMS: Patient has had some dark stools and on at least one occasion had some red rectal bleeding which led to her evaluation with colonoscopy recently. She reports some chest heaviness but denies any palpitations. She has some intermittent shortness of breath but denies any cough or sputum production or wheezing. She has no dysuria or hematuria. PHYSICAL EXAM: Reveals a pleasant woman in no obvious distress. Her height is recorded as 65 inches with a weight of 82 kg yielding a body mass index (BMI) of approximately 30. She is alert and oriented. Skin is warm and dry. Sclerae are anicteric. The neck is supple without mass or adenopathy. Heart exam shows a regular rate and rhythm. The lungs are clear to auscultation. Abdomen shows scars consistent with her prior surgery. She has an upper abdominal scar from her cholecystectomy and lower abdominal scarring consistent with her hysterectomy. There is no sign of hernia. She has active bowel sounds and the abdomen is soft and nontender. She has no inguinal adenopathy identified. Extremities are without edema. She has palpable radial and pedal pulses. A digital rectal examination reveals no definite mass palpable within reach of the examining finger. I have a sensation that the mass may be right at the tip of my finger during the exam based on some firmer tissue in this area. The sphincter tone is normal. LABORATORY STUDIES: The patient's most recent laboratory studies done at the hospital include a CBC on October 09 showing a white count of 8.9 with a hemoglobin of 9 and a hematocrit of 30. Her platelet count was 263,000. She had coags on September 07 that were normal. A basic medical profile on December 09 showed normal electrolytes with a creatinine of 1.03 and a glucose of 100. Her CEA as noted was 1.1 on November 21. She had a CT scan of her abdomen and pelvis done on November 29 and this revealed some thickening at the junction of the distal sigmoid colon and the rectum with infiltration of the adjacent fat but no gross adenopathy. There was no periaortic adenopathy and no sign of metastatic disease otherwise within the abdomen. Some postsurgical changes were noted consistent with her prior hysterectomy and cholecystectomy. IMPRESSION: 1. 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 2. 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 3. History of prior cerebrovascular accident. 4. Chronic neck and back pain. 5. Fibromyalgia. 6. Depression. 7. Dementia. 8. Chronic obstructive pulmonary disease. 9. Sleep apnea. 10. Stress urinary incontinence. PLAN: The patient is being brought into the hospital for admission on December 22 to undergo a robotic-assisted laparoscopic low anterior resection. There appears to be adequate distance to achieve an acceptable distal margin for her rectal resection and still to reestablish bowel continuity. She will perform a mechanical and antibiotic bowel preparation the day before admission. Her other medications will be continued. She was counseled regarding the plan for surgery. Risks include but are not limited to bleeding, infection, scarring, adverse drug reaction, need for further surgery, injury of internal organ, anastomotic leak, and hernia. She had an opportunity to ask questions. She will receive a dose of Entereg preoperatively as well as a dose of Invanz preoperatively. A Morejon catheter will be used in the perioperative period. If we can accomplish this laparoscopically, then I would not anticipate need for an epidural catheter. MTDD
[~2016-12-22] VITALS: Ht 165.1 cm; Wt 80.7 kg
[~2016-12-22 10:20] MED LIST changes: -ATOR40TA PO; +ATOR40TA75 PO; -GASTROGRAFIN SOLUTION 30ML (Q9963) As Ordered ONE; -ISOVUE-370 76% 100ML VIAL (Q9967) As Ordered ONE; +METO1TAB32 PO; -METO25TA74 PO; +PLAV1TAB2 PO; -PLAV75TA38 PO; -PROA1AER INH; +PROAAER10 INH
[2016-12-22] MEDS ORDERED: LR 1,000 ML IV ONE (10:45)
[2016-12-22] MEDS ORDERED: LR 1,000 ML IV SCH ×3 (10:45→22:15)
[2016-12-22] MEDS ORDERED: ERTAPENEM SODIUM 1 GM in NS MINI-BAG PLUS 50 ML IV ONE (10:45)
[2016-12-22 10:53] LABS: MEAN CORPUSCULAR HEMOGLOBIN 27.1 pg (27.0-33.0); MEAN CORPUSCULAR HGB CONC 32.7 g/dl (32.0-36.5); MEAN CORPUSCULAR VOLUME 82.9 fl (80.0-96.0); RED CELL DISTRIBUTION WIDTH 16.3 % (11.5-14.5)
[2016-12-22 11:32] LABS: ALBUMIN 3.5 GM/DL (3.2-5.2); ALBUMIN/GLOBULIN RATIO 0.73 (1.00-1.93); BILIRUBIN,TOTAL 0.6 MG/DL (0.2-1.0); CALCIUM LEVEL 9.1 MG/DL (8.8-10.2); CREATININE FOR GFR 1.09 MG/DL (0.55-1.02); GLOMERULAR FILTRATION RATE 54.3 (>45); POTASSIUM SERUM 3.7 MEQ/L (3.5-5.1); TOTAL PROTEIN 8.3 GM/DL (6.4-8.2)
[2016-12-22] MEDS ORDERED: ONDANSETRON 4MG/2ML VIAL (J2405) As Ordered ONE ×2 (12:17→14:08)
[2016-12-22] MEDS ORDERED: METOPROLOL SUCC *XL* 25MG TAB (TopROL *XL*) As Ordered ONE (12:44)
[2016-12-22] MEDS ORDERED: ONDANSETRON 4MG/2ML VIAL (J2405) IV ONE (12:45)
[2016-12-22] MEDS ORDERED: METOPROLOL SUCC *XL* 25MG TAB (TopROL *XL*) PO ONE (13:00)
[2016-12-22] MEDS ORDERED: ALVIMOPAN 12 MG CAPSULE (ENTEREG) PO ONE (13:15)
[2016-12-22] MEDS ORDERED: BUPIVACAINE HCL 0.25% 30 ML VIAL As Ordered ONE (13:26)
[2016-12-22] MEDS ORDERED: ESMOLOL INJ 100MG/10ML VIAL As Ordered ONE (14:08)
[2016-12-22] MEDS ORDERED: MIDAZOLAM INJ 2 MG/2 ML VIAL (J2250) As Ordered ONE (14:08)
[2016-12-22] MEDS ORDERED: fentaNYL 250 MCG/5 ML INJECTION (J3010) As Ordered ONE (14:08)
[2016-12-22] MEDS ORDERED: PROPOFOL 200 MG/20 ML VIAL As Ordered ONE (14:08)
[2016-12-22] MEDS ORDERED: GLYCOPYRROLATE INJ 0.2 MG/ML 2 ML VIAL As Ordered ONE (14:08)
[2016-12-22] MEDS ORDERED: ROCURONIUM BROMIDE 50 MG/5 ML VIAL/SYRINGE As Ordered ONE ×3 (14:08→15:09)
[2016-12-22] MEDS ORDERED: dexameTHASONE 4 MG/ML 1ML VIAL (J1100) As Ordered ONE (14:08)
[2016-12-22] MEDS ORDERED: KETOROLAC 60 MG/2 ML VIAL (J1885) As Ordered ONE (14:08)
[2016-12-22] MEDS ORDERED: NEOSTIGMINE 1MG/ML 5 ML SYRINGE (J2710) As Ordered ONE (14:08)
[2016-12-22] MEDS ORDERED: LIDOCAINE 2% INJ 100 MG/5 ML SDV (FOR ANES.) As Ordered ONE (14:29)
[2016-12-22] MEDS ORDERED: HYDROmorphone HCL 2 MG/ML 1ML VIAL (J1170) As Ordered ONE (15:03)
[2016-12-22] MEDS ORDERED: fentaNYL 100 MCG/2 ML INJECTION (J3010) As Ordered ONE (20:48)
[2016-12-22] MEDS: ADVAIR HFA 230/21MCG INHALER INH SCH (21:00)
[2016-12-22] MEDS ORDERED: ONDANSETRON 4MG/2ML VIAL (J2405) IV PRN ×2 (21:15→22:15)
[2016-12-22] MEDS ORDERED: ALBUTEROL SULFATE 2.5 MG/0.5 ML INH NEB SOLN NEB PRN (21:15)
[2016-12-22] MEDS ORDERED: METOCLOPRAMIDE INJ 10MG/2ML VIAL (J2765) IV PRN ×2 (21:15→22:15)
[2016-12-22] MEDS ORDERED: ACETAMINOPHEN TAB 650MG DOSE (2X325MG) PO PRN (21:15)
[2016-12-22] MEDS ORDERED: METOCLOPRAMIDE INJ 10MG/2ML VIAL (J2765) As Ordered ONE (21:35)
[2016-12-22] MEDS ORDERED: PERCOCET 5MG/325MG TAB PO PRN (22:15)
[2016-12-22] MEDS ORDERED: MEPERIDINE INJ 25 MG/ML VIAL (J2175) IV PRN (22:15)
[2016-12-22] MEDS ORDERED: fentaNYL 100 MCG/2 ML INJECTION (J3010) IV PRN (22:15)
[2016-12-22 23:30] VITALS: BP 117/59
[2016-12-23] VITALS (9 sets, daily range): BP systolic 103–147; BP diastolic 56–70
[2016-12-23] MEDS: GABAPENTIN 300 MG CAP PO SCH ×4 (00:01→20:22)
[2016-12-23] MEDS: oxyCODONE 15 MG CR TAB PO SCH ×3 (00:01→20:22)
[2016-12-23] MEDS: KETOROLAC 30 MG/ML VIAL (J1885) IV SCH ×5 (00:07→20:22)
[2016-12-23] MEDS: ZONISAMIDE 100 MG CAP (ZONEGRAN) PO SCH ×3 (00:08→20:23)
[2016-12-23] MEDS: oxyCODONE 5MG TAB PO PRN (05:17)
[2016-12-23 06:10] LABS: BASO % 0.1 % (0.0-1.0); EOS % 0.1 % (0.0-3.0); LARGE UNSTAINED CELL # 0.1 K/mm3 (0.0-0.4); LARGE UNSTAINED CELL % 1.4 % (0.0-4.0); LYMPH # 1.3 K/mm3 (1.5-4.5); LYMPH % 11.7 % (24.0-44.0); MEAN CORPUSCULAR HGB CONC 32.3 g/dl (32.0-36.5); MEAN CORPUSCULAR VOLUME 83.7 fl (80.0-96.0); MONO # 0.8 K/mm3 (0.0-0.8); MONO % 7.4 % (0.0-5.0); NEUTROPHILS % 79.3 % (36.0-66.0); PLATELET COUNT, AUTOMATED 258 k/mm3 (150-450); RED CELL DISTRIBUTION WIDTH 16.6 % (11.5-14.5); WHITE BLOOD COUNT 10.1 K/mm3 (4.0-10.0)
[2016-12-23 06:25] LABS: CALCIUM LEVEL 8.1 MG/DL (8.8-10.2); CREATININE FOR GFR 1.01 MG/DL (0.55-1.02); GLOMERULAR FILTRATION RATE 59.3 (>45); POTASSIUM SERUM 3.9 MEQ/L (3.5-5.1)
[2016-12-23] MEDS: ADVAIR HFA 230/21MCG INHALER INH SCH ×2 (07:59→20:27)
[2016-12-23] MEDS: ALBUTEROL SULFATE 2.5 MG/0.5 ML INH NEB SOLN NEB SCH ×4 (07:59→23:47)
[2016-12-23] MEDS: NICOTINE 21MG/24HR 1 EA TRANSDERMAL TD SCH (09:00)
[2016-12-23] MEDS: MEMANTINE 5MG TABLET (NAMENDA) PO SCH ×3 (09:00→20:23)
[2016-12-23] MEDS: DULoxetine 30 MG CAP (CYMBALTA) PO SCH (10:31)
[2016-12-23] MEDS: ALVIMOPAN 12 MG CAPSULE (ENTEREG) PO SCH ×2 (10:31→20:23)
[2016-12-23] MEDS: PANTOPRAZOLE 40MG TAB (PROTONIX) PO SCH (10:34)
[2016-12-23] MEDS: METOPROLOL SUCC *XL* 25MG TAB (TopROL *XL*) PO SCH (10:35)
[2016-12-23] MEDS: DOCUSATE SODIUM 100 MG CAP PO SCH ×3 (10:35→20:23)
[2016-12-23] MEDS: ENOXAPARIN 40 MG/0.4 ML SYRINGE (J1650) SC SCH (10:36)
[2016-12-24 02:00] VITALS: BP 113/60
[2016-12-24] MEDS: KETOROLAC 30 MG/ML VIAL (J1885) IV SCH (04:44)
[2016-12-24 06:00] VITALS: BP 114/59
--- NOTE | 2016-12-24 06:59 | RO ---
DATE OF PROCEDURE: 12/22/2016 PREOPERATIVE DIAGNOSIS: Rectal carcinoma. POSTOPERATIVE DIAGNOSES: 1. Rectal carcinoma. 2. Abdominal adhesions. PROCEDURE PERFORMED: Anoscopy with injection of carbon spot marker. Robotically assisted laparoscopic low anterior rectosigmoid resection with anastomosis, mobilization of splenic flexure, lysis of adhesions, and repair of descending colotomy. SURGEON: Ankur Stokes MD READING EFFICIENCY COURSE DIRECTOR: BEBETO Bunch ANESTHESIA: General. INDICATIONS FOR THE PROCEDURE: The patient is a 61-year-old woman who was recently evaluated for an abnormality of the right lung identified on screening CT scan. This was found to be a squamous cell carcinoma. Within the course of her evaluation, she complained of some rectal bleeding and underwent further evaluation with a colonoscopy. She was found to have a large rectal carcinoma estimated to lie at approximately 10 cm from the anal verge. She is now for a robotically assisted laparoscopic low anterior resection. OPERATIVE PROCEDURE: The patient was placed on the operating table in a supine position. She was placed under general endotracheal anesthesia. Thromboembolism deterrents (TEDs) and sequentials were utilized. A Morejon catheter was inserted. Her legs were placed in stirrups and a digital rectal examination was performed. With careful inspection, I felt that I could just barely feel the tip of the cancer at the tip of the examining finger. A Santiago anal speculum was inserted to perform anoscopy and I injected carbon spot marker at a level approximately 5 cm above the anal verge at the posterior midline to angelo a point for termination of her internal dissection. The patient was then moved into a low lithotomy position. The abdomen was prepped and draped in a sterile fashion. I elected to perform the mobilization of the left colon laparoscopically without robot. A Veress needle was inserted in the right upper quadrant and after positive hanging drop test the abdomen was insufflated with carbon dioxide. A 5 mm port was placed over 5 mm scope and advanced through the abdominal wall without difficulty. There were a few adhesions of the omentum in the right upper quadrant. A 12 mm trocar was placed just lateral and slightly inferior to the umbilicus. A 13 mm robotic port was placed in the right lower quadrant. Then, using the laparoscopic instruments, the sigmoid colon was identified. The patient was initially placed into a steep Trendelenburg position and rolled somewhat to the right. The lateral attachments of the sigmoid at the pelvic brim were lysed using the harmonic scalpel. Dissection proceeded up along the lateral border of the colon. This dissection was carried up to the splenic flexure initially. The colon was rotated medially and the avascular plane opened widely. In the course of dissection in controlling a small bleeder along the lateral border of the descending colon a small perforation of the colon occurred. This appeared to be right at the level of a diverticulum. There was no significant spillage of material so I continued with the dissection of the splenic flexure. The patient was repositioned several times. The greater omentum, which was quite thick, was elevated off of the distal transverse colon with the attachments divided using the harmonic scalpel. Dissection then proceeded toward the splenic flexure dividing the attachments anterior and superior to the colon and freeing this area entirely. Attention was then returned to the small colotomy. This was cleared of some surrounding fibrofatty tissue. The perforation was elevated with a clamp and an endoscopic linear cutter stapler was inserted. This was a 45 mm stapler with a blue load. This was placed across the small opening and fired with resection of a minimal portion of the anterior wall of the descending colon. This appeared to nicely repair the perforation. The area was irrigated and inspected. A single small bleeding point at the end of the staple line was controlled. Attention was then returned to the procedure. At this point, the patient was placed into a Trendelenburg position and rolled somewhat to the right. The robot was docked over the left hip at a 45 degree angle. I would note that an 8 mm robot compatible port was placed in the left midabdomen during the course of the splenic flexure takedown to allow for an additional grasper. The camera port and the right and left abdominal ports were docked. A third robotic port 8 mm in diameter was placed in the left upper quadrant. The right upper quadrant 5 mm port was used for an licensed physical therapy assistant grasper with a suction insurance salesman. I then moved to the robotic control console. I began by using hot rickey in robot arm #1 and a Cadiere grasper in arm #2, a grasping device was placed in arm #3. The sigmoid colon was elevated. The area of the inferior mesenteric artery was identified and this part of the mesentery was opened using the hot rickey. The vessel sealer was then utilized to divide tissues and to expose the vessels. Vessels were thoroughly cauterized and divided using the vessel sealer. The dissection was then carried proximally by dividing the remaining portion of the descending colon mesentery extending far up into the left upper quadrant. This provided excellent mobility to the splenic flexure and descending colon. Dissection was then directed distally dividing the mesentery of the sigmoid colon and then dissecting into the presacral area to perform a total mesorectal excision. The colon and rectum were elevated using the grasping retractor in arm #3. Additional retraction was provided with the other grasper. Dissection proceeded distally dividing the peritoneum on both the right and then left side of the rectum. Dissection proceeded deep into the pelvis obtaining an excellent total mesorectal excision. The nearly avascular plane posteriorly was widely developed using the hot rickey. The lateral attachments were divided after a thorough cauterization with the rickey. Dissection was carried deep into the pelvis to identify the injection of the spot marker, which had been put in at the beginning of the procedure. When we were down essentially to the pelvic floor, the robotic stapler was used to divide the rectum after the rectum had been cleared of surrounding fibrofatty tissue. The staplers were applied from front to back and four loads of the stapler were required to complete the transection. A small amount of fibrofatty tissue was then dissected along the right side of the staple line to provide an excellent spot for an anastomosis. The pelvis was irrigated and a few small bleeding points were controlled with the cautery. The specimen end of the rectum was then grasped with a grasper through the licensed physical therapy assistant port. The robot was then undocked and removed from the field. A right paramedian incision was then made beginning at the 12 mm port to the right of the umbilicus and extending inferiorly approximately 6-7 cm. The fascia was opened longitudinally and the muscle fibers of the rectus were spread. An Jayro retractor was placed. The end of the rectum was delivered through the wound bringing with it the descending colon. A site had been marked intra-abdominally using the cautery for transection. This appeared to be an excellent location with the bowel proximal to this and extending slightly beyond this point looking well vascularized. The mesentery was divided at this point with the harmonic scalpel and the colon was then divided with a linear cutter 75 stapler. The specimen was placed off on the back table for later inspection. The staple line was excised from the end of the colon after draping off the rest of the abdomen. A pursestring suture of #2-0 Prolene was placed and the anvil of the 29 mm EEA stapler was inserted and the pursestring tied down. In inspecting this area, there appeared to be a diverticulum right at the edge of the staple line and I elected to redo the pursestring and excised a small edge of the colon to eliminate this diverticulum. This was accomplished after placing a new #2-0 Prolene. This had excellent tissue for an anastomosis. The end of the bowel was irrigated and reduced into the abdomen. The peritoneum was closed with a running suture of #1 Vicryl. The surgical team changed gown and gloves. The anterior fascia was closed with interrupted simple sutures of #1 Vicryl. The abdomen was reinflated. Inspection identified the post of the anvil and it was easy to bring this down into the pelvis with no tension on the descending colon. The camera was shifted to a left-sided 8 mm port. I then went down to the perineum and gently dilated the anus. The 29 mm EEA stapler was inserted and would insert a short distance, perhaps 5-7 cm. The post of the stapler was advanced adjacent to the staple line of the rectal stump and the anvil was attached and the stapler was then closed, fired and removed. There were two excellent tissue doughnuts retrieved from the stapler. I then insufflated some air into the rectum using a colonoscope. The scope was advanced, perhaps 10-15 cm proximal to the anastomosis with aspiration of a small amount of liquid stool. The anastomosis was found to lie at approximately 5 cm proximal to the anal verge. There was no bleeding and no evident defect. With insufflation of air, no air leak was identified in the pelvis. The scope was removed after suctioning as much air as possible. I then changed gown and gloves and returned to the abdomen. Final inspection showed a minimal amount of irrigation remaining in the pelvis and this was suctioned clear. The patient was returned to a flat position. An Endo Close device was used to place a Vicryl suture in the peritoneum and inner fascia of the right lower quadrant 13 mm port site. The remaining ports were used to vent the abdomen and these were then removed. The incisions were then all closed with buried sutures of #5-0 Vicryl and Steri-Strips. Light dressings were applied. The patient tolerated the procedure well despite the procedure being quite long, approximately 6 to 6-1/2 hours. She was awakened in the operating room, extubated and moved to the recovery room in stable condition. JOSUE
[2016-12-24] MEDS: ADVAIR HFA 230/21MCG INHALER INH SCH ×2 (07:25→19:49)
[2016-12-24] MEDS: ALBUTEROL SULFATE 2.5 MG/0.5 ML INH NEB SOLN NEB SCH ×3 (07:25→23:48)
[2016-12-24] MEDS: NICOTINE 21MG/24HR 1 EA TRANSDERMAL TD SCH (09:30)
[2016-12-24] MEDS: DOCUSATE SODIUM 100 MG CAP PO SCH ×2 (09:31→20:06)
[2016-12-24] MEDS: DULoxetine 30 MG CAP (CYMBALTA) PO SCH (09:31)
[2016-12-24] MEDS: ASPIRIN 81 MG CHEW TABLET PO SCH (09:31)
[2016-12-24] MEDS: ENOXAPARIN 40 MG/0.4 ML SYRINGE (J1650) SC SCH (09:31)
[2016-12-24] MEDS: ZONISAMIDE 100 MG CAP (ZONEGRAN) PO SCH ×2 (09:31→20:05)
[2016-12-24] MEDS: MEMANTINE 5MG TABLET (NAMENDA) PO SCH ×2 (09:32→20:05)
[2016-12-24] MEDS: PANTOPRAZOLE 40MG TAB (PROTONIX) PO SCH (09:32)
[2016-12-24] MEDS: oxyCODONE 15 MG CR TAB PO SCH ×2 (09:33→20:07)
[2016-12-24] MEDS: ALVIMOPAN 12 MG CAPSULE (ENTEREG) PO SCH ×2 (09:33→20:05)
[2016-12-24] MEDS: GABAPENTIN 300 MG CAP PO SCH ×3 (09:33→20:06)
[2016-12-24] MEDS: METOPROLOL SUCC *XL* 25MG TAB (TopROL *XL*) PO SCH (09:34)
[2016-12-24] MEDS: ONDANSETRON 4 MG ORAL DISINTEGRATING TAB (S0181) PO PRN ×2 (09:55→20:09)
[2016-12-24] MEDS: oxyCODONE 5MG TAB PO PRN ×2 (09:55→17:27)
[2016-12-24] MEDS: SIMETHICONE 80 MG CHEW TAB PO SCH ×3 (11:13→20:05)
[2016-12-24 14:00] VITALS: BP 99/55
[2016-12-24 22:00] VITALS: BP 110/57
[2016-12-25 02:00] VITALS: BP 108/54
[2016-12-25 06:00] VITALS: BP 112/69
[2016-12-25] MEDS: ALBUTEROL SULFATE 2.5 MG/0.5 ML INH NEB SOLN NEB SCH ×2 (08:00→15:19)
[2016-12-25] MEDS: ONDANSETRON 4 MG ORAL DISINTEGRATING TAB (S0181) PO PRN (08:09)
[2016-12-25] MEDS: MEMANTINE 5MG TABLET (NAMENDA) PO SCH ×2 (08:10→20:30)
[2016-12-25] MEDS: ZONISAMIDE 100 MG CAP (ZONEGRAN) PO SCH ×2 (08:10→20:31)
[2016-12-25] MEDS: METOPROLOL SUCC *XL* 25MG TAB (TopROL *XL*) PO SCH (08:11)
[2016-12-25] MEDS: ENOXAPARIN 40 MG/0.4 ML SYRINGE (J1650) SC SCH (08:12)
[2016-12-25] MEDS: PANTOPRAZOLE 40MG TAB (PROTONIX) PO SCH (08:12)
[2016-12-25] MEDS: ALVIMOPAN 12 MG CAPSULE (ENTEREG) PO SCH ×2 (08:12→20:30)
[2016-12-25] MEDS: DOCUSATE SODIUM 100 MG CAP PO SCH ×2 (08:12→20:31)
[2016-12-25] MEDS: SIMETHICONE 80 MG CHEW TAB PO SCH ×4 (08:12→20:30)
[2016-12-25] MEDS: oxyCODONE 15 MG CR TAB PO SCH ×2 (08:13→20:30)
[2016-12-25] MEDS: ASPIRIN 81 MG CHEW TABLET PO SCH (08:13)
[2016-12-25] MEDS: NICOTINE 21MG/24HR 1 EA TRANSDERMAL TD SCH (08:14)
[2016-12-25] MEDS: SENNA 8.6 MG TAB (SENOKOT) PO SCH ×2 (08:17→20:31)
[2016-12-25] MEDS: ADVAIR HFA 230/21MCG INHALER INH SCH ×2 (08:22→20:19)
[2016-12-25] MEDS: DULoxetine 30 MG CAP (CYMBALTA) PO SCH (08:47)
[2016-12-25] MEDS: GABAPENTIN 300 MG CAP PO SCH ×3 (08:47→20:31)
[2016-12-25 10:00] VITALS: BP 121/64
[2016-12-25] MEDS: oxyCODONE 5MG TAB PO PRN ×2 (12:16→15:36)
[2016-12-25 14:00] VITALS: BP 108/56
[2016-12-25] MEDS: NYSTATIN 500,000 U/5 ML SUSP UDC SS SCH ×2 (16:42→20:30)
[2016-12-25 18:00] VITALS: BP 102/50
[2016-12-25 22:00] VITALS: BP 107/56
[2016-12-26 02:00] VITALS: BP 110/60
[2016-12-26 06:00] VITALS: BP 112/62
[2016-12-26 06:39] LABS: ANION GAP 8 MEQ/L (8-16); BLOOD UREA NITROGEN 11 MG/DL (7-18); CALCIUM LEVEL 8.7 MG/DL (8.8-10.2); CARBON DIOXIDE LEVEL 28 MEQ/L (21-32); CHLORIDE LEVEL 104 MEQ/L (98-107); CREATININE FOR GFR 0.96 MG/DL (0.55-1.02); GLOMERULAR FILTRATION RATE > 60.0 (>45); GLUCOSE, FASTING 118 MG/DL (80-110); POTASSIUM SERUM 3.1 MEQ/L (3.5-5.1); SODIUM LEVEL 140 MEQ/L (136-145)
[2016-12-26 06:42] LABS: BASO % 0.4 % (0.0-1.0); EOS % 0.7 % (0.0-3.0); LARGE UNSTAINED CELL # 0.1 K/mm3 (0.0-0.4); LYMPH # 1.2 K/mm3 (1.5-4.5); LYMPH % 20.8 % (24.0-44.0); MEAN CORPUSCULAR HEMOGLOBIN 27.1 pg (27.0-33.0); MEAN CORPUSCULAR HGB CONC 31.9 g/dl (32.0-36.5); MEAN CORPUSCULAR VOLUME 85.2 fl (80.0-96.0); MONO # 0.4 K/mm3 (0.0-0.8); MONO % 6.8 % (0.0-5.0); NEUTROPHILS # 4.1 K/mm3 (1.8-7.7); NEUTROPHILS % 69.4 % (36.0-66.0); PLATELET COUNT, AUTOMATED 262 k/mm3 (150-450); RED CELL DISTRIBUTION WIDTH 16.4 % (11.5-14.5); WHITE BLOOD COUNT 5.9 K/mm3 (4.0-10.0)
[2016-12-26] MEDS: ALBUTEROL SULFATE 2.5 MG/0.5 ML INH NEB SOLN NEB SCH ×4 (08:00→23:55)
[2016-12-26] MEDS: ADVAIR HFA 230/21MCG INHALER INH SCH ×2 (08:17→19:43)
[2016-12-26] MEDS: POTASSIUM CHLORIDE 10 MEQ SR TABLET PO SCH ×2 (08:32→12:19)
[2016-12-26] MEDS: ALVIMOPAN 12 MG CAPSULE (ENTEREG) PO SCH ×2 (08:33→20:26)
[2016-12-26] MEDS: METOPROLOL SUCC *XL* 25MG TAB (TopROL *XL*) PO SCH (08:33)
[2016-12-26] MEDS: MEMANTINE 5MG TABLET (NAMENDA) PO SCH ×2 (08:33→20:26)
[2016-12-26] MEDS: SIMETHICONE 80 MG CHEW TAB PO SCH ×4 (08:33→20:25)
[2016-12-26] MEDS: PANTOPRAZOLE 40MG TAB (PROTONIX) PO SCH (08:33)
[2016-12-26] MEDS: ZONISAMIDE 100 MG CAP (ZONEGRAN) PO SCH ×2 (08:33→20:25)
[2016-12-26] MEDS: ASPIRIN 81 MG CHEW TABLET PO SCH (08:33)
[2016-12-26] MEDS: NYSTATIN 500,000 U/5 ML SUSP UDC SS SCH ×2 (08:33→20:25)
[2016-12-26] MEDS: GABAPENTIN 300 MG CAP PO SCH ×3 (08:33→20:26)
[2016-12-26] MEDS: oxyCODONE 15 MG CR TAB PO SCH ×2 (08:34→20:25)
[2016-12-26] MEDS: DULoxetine 30 MG CAP (CYMBALTA) PO SCH (08:35)
[2016-12-26] MEDS: ENOXAPARIN 40 MG/0.4 ML SYRINGE (J1650) SC SCH (08:35)
[2016-12-26] MEDS: NICOTINE 21MG/24HR 1 EA TRANSDERMAL TD SCH (08:35)
[2016-12-26] MEDS: DOCUSATE SODIUM 100 MG CAP PO SCH ×2 (08:35→20:26)
[2016-12-26] MEDS: SENNA 8.6 MG TAB (SENOKOT) PO SCH ×2 (08:35→20:26)
[2016-12-26] MEDS: ONDANSETRON 4 MG ORAL DISINTEGRATING TAB (S0181) PO PRN (08:38)
[2016-12-26 10:00] VITALS: BP 105/57
[2016-12-26 14:00] VITALS: BP 111/58
[2016-12-26 22:00] VITALS: BP 118/66
[2016-12-27 02:00] VITALS: BP 112/56
[2016-12-27 06:00] VITALS: BP 133/67
[2016-12-27] MEDS: ALBUTEROL SULFATE 2.5 MG/0.5 ML INH NEB SOLN NEB SCH (07:35)
[2016-12-27] MEDS: ADVAIR HFA 230/21MCG INHALER INH SCH (07:36)
[2016-12-27] MEDS: DULoxetine 30 MG CAP (CYMBALTA) PO SCH (09:00)
[2016-12-27] MEDS: SENNA 8.6 MG TAB (SENOKOT) PO SCH (09:00)
[2016-12-27] MEDS: DOCUSATE SODIUM 100 MG CAP PO SCH (09:00)
[2016-12-27] MEDS: ENOXAPARIN 40 MG/0.4 ML SYRINGE (J1650) SC SCH (09:32)
[2016-12-27] MEDS: NYSTATIN 500,000 U/5 ML SUSP UDC SS SCH (09:32)
[2016-12-27] MEDS: NICOTINE 21MG/24HR 1 EA TRANSDERMAL TD SCH (09:33)
[2016-12-27] MEDS: ASPIRIN 81 MG CHEW TABLET PO SCH (09:34)
[2016-12-27] MEDS: ZONISAMIDE 100 MG CAP (ZONEGRAN) PO SCH (09:34)
[2016-12-27] MEDS: SIMETHICONE 80 MG CHEW TAB PO SCH (09:34)
[2016-12-27 09:35] VITALS: BP 133/67
[2016-12-27] MEDS: MEMANTINE 5MG TABLET (NAMENDA) PO SCH (09:35)
[2016-12-27] MEDS: oxyCODONE 15 MG CR TAB PO SCH (09:35)
[2016-12-27] MEDS: METOPROLOL SUCC *XL* 25MG TAB (TopROL *XL*) PO SCH (09:35)
[2016-12-27] MEDS: ALVIMOPAN 12 MG CAPSULE (ENTEREG) PO SCH (09:35)
[2016-12-27] MEDS: PANTOPRAZOLE 40MG TAB (PROTONIX) PO SCH (09:36)
[2016-12-27] MEDS: GABAPENTIN 300 MG CAP PO SCH (09:36)
[2016-12-27] MEDS: ONDANSETRON 4 MG ORAL DISINTEGRATING TAB (S0181) PO PRN (09:51)
--- NOTE | 2017-01-05 22:08 | DSES ---
DATE OF ADMISSION: 12/22/2016 DATE OF DISCHARGE: 12/27/2016 ADMISSION DIAGNOSIS: Rectal carcinoma. HISTORY OF PRESENT ILLNESS: The patient is a pleasant 61-year-old woman who had undergone a screening CT scan of the chest based on a significant smoking history. This was done on August 30, 2016. This revealed a 3.4 x 2.2 cm soft tissue lesion in the right lower lobe of the lung, which was felt to be suspicious for carcinoma. She subsequently underwent an imaging guided biopsy of the mass on October 05, 2016. She developed a postbiopsy pneumothorax, which led to placement chest tube and admission to [facility]. The biopsy confirmed moderately to poorly differentiated squamous cell carcinoma. In the course of her treatment she had complained of some rectal bleeding. As a result of this she underwent a EGD and colonoscopy on November 21, [address] Lim. The EGD revealed some diffuse mild inflammation of the gastric antrum. Her colonoscopy revealed a large partially circumferential mass extending from approximately 10-15 cm proximal to the anus. Biopsies revealed high-grade adenocarcinoma with mucinous features. A CEA level on November 21 was only 1.1. The patient was discussed at the [facility] tumor board. She has two separate malignancies simultaneously. It was determined that proceeding with surgery for her rectal cancer seemed to make more sense than doing her lung surgery first. She is now admitted to undergo a robotic-assisted laparoscopic low anterior resection on December 22. She was instructed to perform a mechanical and antibiotic bowel preparation utilizing Suprep, neomycin, and Flagyl the day before admission. HOSPITAL COURSE: The patient presented on December 22 and was taken to the operating room. She received her preoperative antibiotic and Entereg. She was placed in a lithotomy position under general anesthesia and anoscopy was performed with injection of carbon spot marker to angelo the posterior aspect of the perirectal tissues to identify the distal extent of her dissection. She then underwent a robotically assisted laparoscopic low anterior rectosigmoid resection with anastomosis. This required mobilization of splenic flexure, lysis of adhesions, and repair of a small colotomy which occurred in the descending colon. The patient tolerated her surgery well. By postop day #1 she was taking some clear liquids. She had some mild abdominal distension. Her diet was advanced. She was encouraged to ambulate. Her Moerjon catheter was removed on postoperative day #2. She continued to make good progress. She did have a little bit of wheezing noted postoperatively, which improved with some nebulizer treatments. She was weaned off of a small dose of oxygen. Her potassium was noted to be somewhat low on postop day #4 and she received some potassium supplementation. Her pathology revealed poorly differentiated adenocarcinoma 5.5 cm in diameter. This extended into the perirectal fat and 6/10 perirectal nodes were positive for carcinoma. She was also noted to have three small tumor nodules in the perirectal tissues. She tolerated the diet well and bowel function returned. She was discharged home on the December 27, 2016. FINAL DIAGNOSES: 1. 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 2. Squamous cell carcinoma of right lower lobe of lung. 3. History of prior cerebrovascular accident. 4. Chronic neck and back pain, on chronic narcotics. 5. Fibromyalgia. 6. Depression. 7. Mild dementia. 8. Chronic obstructive pulmonary disease. 9. Obstructive sleep apnea. 10. Stress urinary incontinence. PROCEDURE PERFORMED: 1. Anoscopy with injection of carbon spot marker. 2. Robotically assisted laparoscopic low anterior rectosigmoid resection with anastomosis. 3. Mobilization of splenic flexure. 4. Lysis of adhesions and repair of small descending colotomy. DISPOSITION: She was discharged home on December 27 in good condition. She was advised that she could shower as tolerated. She was advised against any strenuous physical activity. She was to take a regular diet as tolerated and call the office with any problems. She was to continue her usual medications as before admission. She was to stop her docusate senna. MEDICATIONS AT THE TIME OF DISCHARGE: She was to continue her chronic OxyContin 20 mg by mouth every 12 hours and also had some immediate release oxycodone for breakthrough pain. She was to follow up in my office on January 03 at 10:15 a.m. JOSUE
== END 2016-12-27 13:05 | disposition home or self-care (01) | DRG 329 ==
LOC: M OR 10:20 → M MS5PR 23:30
PROVIDERS: ADMIT Surgery; ATTEND Surgery
PROC: 0DTN4ZZ Resection of Sigmoid Colon, Percutaneous Endoscopic Approach (ICD-10-PCS; 2016-12-22)
PROC: 0DBM4ZZ Excision of Descending Colon, Percutaneous Endoscopic Approach (ICD-10-PCS; 2016-12-22)
PROC: 8E0W4CZ Robotic Assisted Procedure of Trunk Region, Percutaneous Endoscopic Approach (ICD-10-PCS; 2016-12-22)
PROC: 0DBP4ZZ Excision of Rectum, Percutaneous Endoscopic Approach (ICD-10-PCS; principal; 2016-12-22 12:15)
DX: C20 Malignant neoplasm of rectum (principal); K63.1 Perforation of intestine (nontraumatic); C34.31 Malignant neoplasm of lower lobe, right bronchus or lung; F32.9 Major depressive disorder, single episode, unspecified; F03.90 Unspecified dementia, unspecified severity, without behavioral disturbance, psychotic disturbance, mood disturbance, and anxiety; J44.9 Chronic obstructive pulmonary disease, unspecified; G47.30 Sleep apnea, unspecified; M79.7 Fibromyalgia; N39.3 Stress incontinence (female) (male); M54.2 Cervicalgia; Z88.5 Allergy status to narcotic agent; Z88.8 Allergy status to other drugs, medicaments and biological substances; Z79.82 Long term (current) use of aspirin; Z90.49 Acquired absence of other specified parts of digestive tract; Z90.710 Acquired absence of both cervix and uterus; Z79.899 Other long term (current) drug therapy; Z87.891 Personal history of nicotine dependence; Z90.722 Acquired absence of ovaries, bilateral

== ENCOUNTER → 2017-01-18 | Outpatient (REF) | payer MEDICARE, MEDICAID ==
[~2017-01-18] MED LIST changes: +MUCI600T37 PO; +ONDA8TAB8 PO; +OXYC40TA29; +PROC5TA PO
[2017-01-18 12:35] LABS: ANION GAP 9 MEQ/L (8-16); BLOOD UREA NITROGEN 13 MG/DL (7-18); CALCIUM LEVEL 8.9 MG/DL (8.8-10.2); CARBON DIOXIDE LEVEL 26 MEQ/L (21-32); CHLORIDE LEVEL 106 MEQ/L (98-107); CREATININE FOR GFR 0.98 MG/DL (0.55-1.02); GLOMERULAR FILTRATION RATE > 60.0 (>45); GLUCOSE, FASTING 94 MG/DL (80-110); POTASSIUM SERUM 4.1 MEQ/L (3.5-5.1); SODIUM LEVEL 141 MEQ/L (136-145)
== END ==
LOC: M SFHCPLAZ 08:20
PROVIDERS: ATTEND Family Medicine
DX: R34 Anuria and oliguria (principal)
CPT/HCPCS: 36415; 80048; 81001; G0463

== ENCOUNTER → 2017-01-19 | Outpatient (REF) | payer MEDICARE, MEDICAID ==
[2017-01-19 14:23] LABS: INR 0.94
== END ==
LOC: M LAB REF 14:05
PROVIDERS: ATTEND Internal Medicine Medical Oncology
DX: C18.9 Malignant neoplasm of colon, unspecified (principal)

== ENCOUNTER → 2017-01-22 | Outpatient (CLI) | payer MEDICARE, MEDICAID ==
--- NOTE | 2017-01-22 11:08 | REP ---
PA and lateral chest: Comparisons are the PA and lateral chest dated 10/30/[address] of 08/30/2016. The patient's known right upper lobe lung mass is superimposed by the ribs and clavicle. This is unchanged from 10/30/2016. The lung lin otherwise clear. Cardiac size is normal. The kameron, mediastinum, and bony thorax are unremarkable. Impression: Right upper lobe lung mass as described. Otherwise, negative chest. Signed by Quinn Clemons MD 01/22/2017 10:59 A
== END ==
LOC: M SMT 10:22
PROVIDERS: ATTEND Thoracic Surgery (Cardiothoracic Vascular Surgery)
DX: C20 Malignant neoplasm of rectum (principal); R91.1 Solitary pulmonary nodule

== ENCOUNTER 2017-01-23 07:07 | Day surgery (SDC) | payer MEDICARE, MEDICAID ==
[~2017-01-23 07:07] MED LIST changes: -MUCI600T37 PO; -ONDA8TAB8 PO; -OXYC40TA29; -PROC5TA PO
[2017-01-23] MEDS ORDERED: ceFAZolin 2 GM/D5W 50 ML IV BAG (J0690) As Ordered ONE (07:56)
[2017-01-23] MEDS ORDERED: LIDOCAINE 1% SDV INJ 30 ML VIAL As Ordered ONE (08:15)
[2017-01-23] MEDS ORDERED: HEPARIN SOD (PORCINE) 5000 UNITS/ML VIAL As Ordered ONE (08:16)
[2017-01-23] MEDS ORDERED: BUPIVACAINE LIPOSOME/PF 1.3% 20 ML VIAL (13.3MG/ML)(EXPAREL) As Ordered ONE (08:16)
[2017-01-23] MEDS ORDERED: MUPIROCIN 2% OINT 22 GM TUBE TOP ONE (08:45)
[2017-01-23] MEDS ORDERED: MIDAZOLAM INJ 2 MG/2 ML VIAL (J2250) As Ordered ONE (09:33)
[2017-01-23] MEDS ORDERED: fentaNYL 100 MCG/2 ML INJECTION (J3010) As Ordered ONE (09:33)
[2017-01-23] MEDS ORDERED: PHENYLephrine HCL 500 MCG/5 ML (100MCG/ML) SYRINGE (J2370) As Ordered ONE (09:33)
[2017-01-23] MEDS ORDERED: PROPOFOL 500 MG/50 ML VIAL As Ordered ONE (09:33)
--- NOTE | 2017-01-23 10:21 | REP ---
C-ARM VIEWS OF THE CHEST: Two C-arm views of the chest are performed during placement of a left MediPort. The left subclavian MediPort catheter is seen with the tip in the superior vena cava. 12 seconds of fluoroscopy time was utilized. Signed by Quinn Cavazos MD 01/23/2017 05:08 P
[2017-01-23] MEDS ORDERED: PERCOCET 5MG/325MG TAB As Ordered ONE (10:41)
[2017-01-23 11:00] VITALS: BP 120/67
[2017-01-23] MEDS ORDERED: ONDANSETRON 4MG/2ML VIAL (J2405) IV PRN (11:00)
[2017-01-23] MEDS ORDERED: fentaNYL 100 MCG/2 ML INJECTION (J3010) IV PRN (11:00)
[2017-01-23] MEDS ORDERED: LR 1,000 ML IV SCH (11:00)
[2017-01-23] MEDS ORDERED: PERCOCET 5MG/325MG TAB PO PRN (11:00)
--- NOTE | 2017-01-23 12:46 | REP ---
PORTABLE CHEST: AP portable view of the chest is performed and compared to prior study of 01/22/2017. There is placement of the left subclavian Mediport catheter. The tip is in the superior vena cava. There is no pneumothorax. Right apical mass density is again seen. There is elevation of the right hemidiaphragm. There is mild bibasilar fibroatelectatic change. IMPRESSION: Placement of left Mediport with no pneumothorax. Signed by Qiunn Cavazos MD 01/23/2017 05:09 P
--- NOTE | 2017-01-25 13:21 | RO ---
DATE OF PROCEDURE: 01/23/2017 PREPROCEDURE DIAGNOSIS: Need for vascular access for chemotherapy, colon cancer and lung cancer. POSTPROCEDURE DIAGNOSIS: Need for vascular access for chemotherapy, colon cancer and lung cancer. PROCEDURE: Insertion of left subclavian Infusaport with fluoroscopic control. SURGEON: Ankur Helms MD DUTY MANAGER: ANESTHESIA: FINDINGS: All counts were correct at the end of the procedure. DESCRIPTION OF PROCEDURE: Under satisfactory MAC anesthesia, the patient was prepped and draped in the usual sterile fashion. The subclavian vein was found on the second pass. The first pass resulted in entering the artery. It was held digitally for 5 minutes. The wire was placed under fluoroscopic control in the right atrium. After infiltrating the port site with Exparel, an incision was made approximately 3 cm below the subclavian entry site. A subcutaneous pocket was developed by use of blunt and sharp dissection. The wire was site was incised and peel away introducer was placed. The port catheter was then placed without difficulty and the peel away introducer removed. A tunnel was created with a tunneler and the catheter pulled through the tunnel to the port site. The catheter was then positioned under fluoroscopic control in the SVC. The catheter was cut to the appropriate size, the collar was placed and connected to the Infusaport. The Infusaport was then secured to the chest wall with two #2-0 silk sutures. The port was aspirated and flushed without difficulty with a final flush of 9 mL of 100 units/mL of heparin. The subcutaneous tissue was closed with running #3-0 Vicryl suture and the skin was closed with running #4-0 Monocryl subcuticular suture. The patient tolerated the procedure well and left the operating room in satisfactory condition for the recovery room.
== END 2017-01-23 11:17 | disposition home or self-care (01) ==
LOC: M SDC 07:07
PROVIDERS: ATTEND Thoracic Surgery (Cardiothoracic Vascular Surgery)
DX: C18.7 Malignant neoplasm of sigmoid colon (principal); C20 Malignant neoplasm of rectum; C34.11 Malignant neoplasm of upper lobe, right bronchus or lung; I10 Essential (primary) hypertension; I69.311 Memory deficit following cerebral infarction; K21.9 Gastro-esophageal reflux disease without esophagitis; K44.9 Diaphragmatic hernia without obstruction or gangrene; F03.90 Unspecified dementia, unspecified severity, without behavioral disturbance, psychotic disturbance, mood disturbance, and anxiety; G43.909 Migraine, unspecified, not intractable, without status migrainosus; F17.218 Nicotine dependence, cigarettes, with other nicotine-induced disorders; G47.33 Obstructive sleep apnea (adult) (pediatric); R09.82 Postnasal drip; E78.00 Pure hypercholesterolemia, unspecified; F32.9 Major depressive disorder, single episode, unspecified; Z88.5 Allergy status to narcotic agent; Z88.8 Allergy status to other drugs, medicaments and biological substances; Z79.899 Other long term (current) drug therapy; Z79.82 Long term (current) use of aspirin; Z90.710 Acquired absence of both cervix and uterus
CPT/HCPCS: 36415; 36561; 71010; 76000; 86850; 86900; 86901; C1788; J0690; J2250; J2370; J3010

== ENCOUNTER → 2017-01-31 | Outpatient (CLI) | payer MEDICARE ==
[~2017-01-31] MED LIST changes: +MUCI600T37 PO; +ONDA8TAB8 PO; +OXYC40TA29; +PROC5TA PO
--- NOTE | 2017-01-31 17:45 | REP ---
PET/CT: History: Restaging rectal carcinoma. Lung carcinoma. Comparisons: Comparison PET-CT study 09/20/2016. The patient is status post colon CA resection in the interval since the prior study. TECHNIQUE: 50 minutes following the intravenous injection of a 8.8 mCi dose of F-18 FDG, three-dimensional PET scintigraphy is acquired from the skull base to the proximal thighs. Triplanar noncontrast CT scanning is acquired through the same anatomic range for attenuation correction, and image registration with scan parameters optimized to minimize radiation exposure to the patient. PET scintigraphy and CT datasets were fused and displayed on a workstation with multiplanar and projection display capability. PET/CT Findings: Interval since the prior exam the patient has undergone the low anterior resection for rectosigmoid malignancy. The previously noted hypermetabolic right upper lobe lung mass remains hypermetabolic. Maximum standard uptake value is 9.8, previously 10.0. The lesion measures 4.2 cm in greatest right to left dimension, previously at 4.0. No hilar or mediastinal hypermetabolic uptake is seen. No other abnormal hypermetabolic uptake is seen in the chest. Head and neck soft tissues are unremarkable. No abnormal hypermetabolic uptake is seen in the liver. There is there is minimally hypermetabolic uptake in a small soft tissue density at the anterior aspect of medial edge of the right rectus abdominis muscle in the infraumbilical region with maximum standard uptake value here 3.2. The accompanying soft tissue density measures 2.2 x 2.0 cm. This is most compatible with postoperative granulation tissue although it is nonspecific. No retroperitoneal or other intra-abdominal luna hypermetabolic uptake is seen. Impression: The patient status post low anterior resection for colon malignancy. There is presumed postoperative uptake in the anterior abdominal wall to the right of midline just below the umbilicus. No hepatic or other intra-abdominal metastasis seen. The previously noted hypermetabolic lung mass persists unchanged in avidity and only slightly larger than on the prior study. Signed by Garo Haq MD 02/01/2017 08:52 A
== END ==
LOC: M PLARAD 12:43
PROVIDERS: ATTEND Internal Medicine Medical Oncology
DX: C20 Malignant neoplasm of rectum (principal)
CPT/HCPCS: 78815; A9552

== ENCOUNTER → 2017-02-05 | Outpatient (CLI) | payer MEDICARE ==
--- NOTE | 2017-02-05 09:47 | REP ---
CHEST X-RAY: Two views. HISTORY: Malignant neoplasm right upper lobe. COMPARISON STUDY: January 23, 2017. FINDINGS: Hazy opacity persists overlying the proximal clavicle on the right 1st rib. A left subclavian Hthnqr-L-Afus catheter is seen terminating in the expected location of the superior vena cava. The lungs are otherwise well inflated and clear. The pleural angles are sharp. There are clips in right upper quadrant of the abdomen. The heart is not enlarged. IMPRESSION: Left-sided [id number]-C-Ajap. The patient's right upper lobe mass is largely hidden by the medial clavicle and the right 1st rib. Signed by Garo Haq MD 02/05/2017 02:44 P
== END ==
LOC: M SMT 08:12
PROVIDERS: ATTEND Thoracic Surgery (Cardiothoracic Vascular Surgery)
DX: Z01.818 Encounter for other preprocedural examination (principal); C34.11 Malignant neoplasm of upper lobe, right bronchus or lung

== ENCOUNTER 2017-03-04 08:38 | Emergency (ER) | payer MEDICARE, MEDICAID ==
[~2017-03-04] VITALS: Ht 167.6 cm; Wt 85.0 kg
[~2017-03-04 08:38] MED LIST changes: -MUCI600T37 PO; -ONDA8TAB8 PO; -OXYC40TA29; -PROC5TA PO
[2017-03-04 08:49] VITALS: BP 132/91
[2017-03-04] MEDS ORDERED: OXYC40TA29 (09:00)
[2017-03-04] MEDS ORDERED: ONDA8TAB8 PO (09:00)
[2017-03-04] MEDS ORDERED: PROC5TA PO (09:00)
[2017-03-04] MEDS ORDERED: MUCI600T37 PO (09:18)
== END 2017-03-04 09:23 | disposition home or self-care (01) ==
LOC: M ED 08:38
DX: J06.9 Acute upper respiratory infection, unspecified (principal); I10 Essential (primary) hypertension; J44.9 Chronic obstructive pulmonary disease, unspecified; E78.00 Pure hypercholesterolemia, unspecified; F41.9 Anxiety disorder, unspecified; F33.9 Major depressive disorder, recurrent, unspecified; G89.29 Other chronic pain; M54.2 Cervicalgia; M54.5 Low back pain; F03.90 Unspecified dementia, unspecified severity, without behavioral disturbance, psychotic disturbance, mood disturbance, and anxiety; Z86.73 Personal history of transient ischemic attack (TIA), and cerebral infarction without residual deficits; Z79.899 Other long term (current) drug therapy; Z79.82 Long term (current) use of aspirin; Z79.02 Long term (current) use of antithrombotics/antiplatelets; Z88.5 Allergy status to narcotic agent; Z88.8 Allergy status to other drugs, medicaments and biological substances; F17.210 Nicotine dependence, cigarettes, uncomplicated

== ENCOUNTER → 2017-03-08 | Outpatient (CLI) | payer MEDICARE, MEDICAID ==
[~2017-03-08] MED LIST changes: +MUCI600T37 PO; +ONDA8TAB8 PO; +OXYC40TA29; +PROC5TA PO
--- NOTE | 2017-03-09 01:37 | REP ---
Clinical: Cough. Technique: PA and lateral. Comparison: 02/05/2017. Findings: Mediastinum and cardiac silhouette are stable. Lncbvo-X-[id number] identified with tip in the SVC. Vague area of opacity in the right upper lung zone is unchanged. No further consolidation, effusion, or pneumothorax. Skeletal structures are intact. Impression: Stable, vague right upper lobe opacity. Chronic stable changes. No further acute process identified. Signed by Nacho Herron MD 03/09/2017 01:28 A
== END ==
LOC: M SMT 08:19
PROVIDERS: ATTEND Family Medicine
DX: R05 Cough (principal); Z95.828 Presence of other vascular implants and grafts
CPT/HCPCS: 71020; G0463

== ENCOUNTER → 2017-03-12 | Outpatient (REF) | payer MEDICARE, MEDICAID | LOC: M LAB REF 14:36 | PROVIDERS: ATTEND Internal Medicine Medical Oncology | DX: C18.9 Malignant neoplasm of colon, unspecified (principal); R19.7 Diarrhea, unspecified; Z98.890 Other specified postprocedural states ==

== ENCOUNTER → 2017-04-24 | Outpatient (REF) | payer MEDICARE, MEDICAID ==
[2017-05-03 00:06] LABS: F8 ACTIVITY FOR F8 PANEL 264 % (57-163); F8 ACTIVITY vWB FOR F8 PANEL 361 % (50-200); F8 ANTIGEN FOR F8 PANEL 473 % (50-200); INTERPRETATION: Note (.)
== END ==
LOC: M LAB REF 15:29
PROVIDERS: ATTEND Internal Medicine Medical Oncology
DX: C44.520 Squamous cell carcinoma of anal skin (principal)

== ENCOUNTER → 2017-04-27 | Outpatient (CLI) | payer MEDICARE, MEDICAID ==
--- NOTE | 2017-04-27 14:46 | REP ---
Clinical: Chemotherapy Comparison: 03/08/2017 . Technique: PA and lateral. Findings: The mediastinum and cardiac silhouette are normal. Rwkelb-I-Lfbz with tip in the SVC. Subtle right upper lobe opacity cannot be excluded in appearance unchanged. The lung lin are otherwise clear and without acute consolidation, effusion, or pneumothorax. The skeletal structures are intact and normal. Impression: 1. No acute cardiopulmonary process. 2. Stable right upper lobe opacity. Signed by Nacho Herron MD 04/27/2017 01:47 P
--- NOTE | 2017-04-27 14:59 | ECGEPIP ---
Stationary ECG Study [facility] Test Date: 2017-04-27 Pat Name: PAULA MADERA Department: Room: - Gender: F Supervisor Patching: Jess : [phone] Requested By: Fiorella Wellington Order Number: [id number] Reading MD: Jamal Arroyo Measurements Intervals [place] Rate: 76 P: 43 AK: 150 QRS: 11 QRSD: 98 T: 64 QT: 385 QTc: 435 Interpretive Statements SINUS RHYTHM INCOMPLETE RIGHT BUNDLE BRANCH BLOCK Prior tracing on 11/22/2013 at 12:07:36, no significant changes Electronically Signed On 04-27-2017 14:59:13 EST by Jamal Arroyo
--- NOTE | 2017-04-30 06:41 | ECHO ---
DATE OF PROCEDURE: 04/27/2017 AGE: 61 GENDER: Female. HEIGHT: 65 inches. WEIGHT: 176 pounds. BODY SURFACE AREA: 1.87 meters squared. REFERRING PHYSICIAN: Fiorella Pandya MD INDICATION: Potentially cardiotoxic chemotherapy. MEASUREMENTS: 2D MEASUREMENTS: RV - 4.0 cm LV - 4.0 cm Septum - 1.1 cm Posterior wall - 1.1 cm Aortic root - 2.9 cm LA - 3.3 cm LVEF 65% DOPPLER MEASUREMENTS: AV - 1.5 m/s LVOT- 0.8 m/s LVOT diameter - 2.0 cm MV-E 81, A 71, E/A ratio 1.1 Early mitral deceleration time 225 ms E prime 6.6, A prime 12, E/E prime ratio 12.3 PV - 1.0 m/s Pulmonary artery acceleration time 120 ms RVST 31 mmHg IVC - 2.0 cm COMMENTS: Normal sinus rhythm without intraventricular conduction disturbance. Normal cardiac chamber sizes. Left ventricular wall thickness was upper limits of normal. On real-time imaging from the parasternal and projections, wall motion was symmetrical and hyperkinetic. Slightly thickened mitral annulus, but normal leaflet thickness and excursion with no posterior systolic buckling. Three equal size aortic cusps with marginally thickened cusp edges but adequate cusp separation. Normal aortic root size. No apparent intracardiac mass or pericardial effusion. Color flow Doppler study taken from the parasternal and apical projections showed trace aortic, trace mitral and mild tricuspid insufficiency. Guided continuous wave Doppler of her aortic valve showed a normal peak systolic velocity against LV outflow tract obstruction. Pulsed and continuous wave Doppler of her LV inflow tract taken from the apical four-chamber projection showed normal diastolic filling velocities against mitral stenosis. The filling pattern was normal but early mitral deceleration time was slightly prolonged and tissue Doppler also suggested a degree of LV diastolic dysfunction, but current estimated mean left atrial pressure was upper limits of normal. Pulsed and continuous wave Doppler of her pulmonary trunk showed a normal peak systolic velocity against RV outflow tract obstruction. Her pulmonary artery acceleration time was normal against an elevated pulmonary vascular resistance. Guided continuous wave Doppler of her tricuspid valve allowed our estimation of her right ventricular systolic pressure (upper limits of normal to slightly increased). Her inferior vena cava was of normal size with normal respiratory collapse against an elevated central venous pressure. CONCLUSIONS: Normal left ventricular size, wall thickness and wall motion. Normal left atrial size but Doppler evidence of an impairment of LV diastolic function, but currently normal estimated mean left atrial pressure. Normal right heart chamber sizes and wall motion with Doppler evidence of borderline pulmonary hypertension. Normal IVC size and collapse against an elevated central venous pressure. Slight aortic valvular sclerosis and mitral annular thickening without functional valvular abnormality.
== END ==
LOC: M CARPUL 13:00
PROVIDERS: ATTEND Internal Medicine Medical Oncology
DX: R07.89 Other chest pain (principal); I25.10 Atherosclerotic heart disease of native coronary artery without angina pectoris; Z92.21 Personal history of antineoplastic chemotherapy

== ENCOUNTER → 2017-05-07 | Outpatient (CLI) | payer MEDICARE, MEDICAID ==
[~2017-05-07] MED LIST changes: +ISOVUE-370 76% 100ML VIAL (Q9967) As Ordered ONE
--- NOTE | 2017-05-07 13:15 | REP ---
Clinical: Lung carcinoma. Comparison: 08/30/2016. Technique: Axial contrast enhanced images from the thoracic inlet to the upper abdomen using 100 ml Isovue 370 intravenous contrast material with coronal and sagittal re-formations. Findings: Lobulated 4.1 x 2.2 x 1.8 cm mass lesion in the right apex with spiculated margins remains unchanged minimal chronic basilar changes and dependent changes are appreciated. No further acute consolidation, significant nodule or mass lesion identified. The mediastinum demonstrates mediastinal and hilar adenopathy with right hilar lymph nodes measuring up to approximately 13 mm short axis diameter. Tracheobronchial tree is patent. No pleural effusion. No pneumothorax. Thoracic aorta and heart/pericardium are relatively normal and within normal limits. Findings: Lesion in the right apex remains relatively similar to prior examination. Mild to moderate mediastinal and hilar adenopathy. No new consolidation, nodule or mass. Signed by Nacho Herron MD 05/07/2017 01:07 P
== END ==
LOC: M RAD 12:27
PROVIDERS: ATTEND Thoracic Surgery (Cardiothoracic Vascular Surgery)
DX: C34.11 Malignant neoplasm of upper lobe, right bronchus or lung (principal)
CPT/HCPCS: 71260; Q9967

== ENCOUNTER → 2017-06-05 | Outpatient (CLI) | payer MEDICARE, MEDICAID ==
[~2017-06-05] MED LIST changes: +GAS1CHW PO; -ISOVUE-370 76% 100ML VIAL (Q9967) As Ordered ONE; +MAGN500C PO; +OXYC10TA12 PO; +RABE1TAB PO; +VITATAB11 PO
--- NOTE | 2017-06-05 16:57 | REP ---
Clinical: Acute/chronic cough . Comparison: 04/27/2017 . Technique: PA and lateral. Findings: The mediastinum and cardiac silhouette are normal. [id number] extends to the SVC. The lung lin demonstrate chronic interstitial changes including right apical scarring and left basilar scarring without acute consolidation, effusion, or pneumothorax. The skeletal structures are intact and normal. Impression: Chronic stable changes. No acute cardiopulmonary process identified. Signed by Nacho Herron MD 06/05/2017 04:49 P
== END ==
LOC: M WUC 16:28
PROVIDERS: ATTEND Nurse Practitioner Family
DX: R05 Cough (principal); Z85.118 Personal history of other malignant neoplasm of bronchus and lung

== ENCOUNTER → 2017-06-08 | Outpatient (CLI) | payer MEDICARE, MEDICAID ==
[2017-06-08 13:29] LABS: ABG BASE EXCESS -2.4 (-2.0-2.0); ABG DEVICE ROOM AIR; ABG HCO3 21.8 MEQ/L (22.0-26.0); ABG PARTIAL PRESSURE CO2 35.9 mmHg (35.0-45.0); ABG PARTIAL PRESSURE O2 72.9 mmHg (75.0-100.0); ABG STANDARD HCO3 22.4 MEQ/L (22.0-26.0); ABG TOTAL CO2 22.9 MEQ/L (23.0-31.0); ABG pH (ARTERIAL) 7.401 UNITS (7.350-7.450)
[2017-06-08 13:30] LABS: CARBOXYHEMOGLOBIN 3.2 % (0.0-1.5)
[2017-06-08 13:34] LABS: MEAN CORPUSCULAR HGB CONC 30.9 g/dl (32.0-36.5); MEAN CORPUSCULAR VOLUME 87.5 fl (80.0-96.0); PLATELET COUNT, AUTOMATED 242 10^3/uL (150-450); RED CELL DISTRIBUTION WIDTH 20.5 % (11.5-14.5); WHITE BLOOD COUNT 8.3 10^3/uL (4.0-10.0)
[2017-06-08 13:47] LABS: INR 0.98
[2017-06-08 13:56] LABS: ANION GAP 7 MEQ/L (8-16); BLOOD UREA NITROGEN 6 MG/DL (7-18); CALCIUM LEVEL 9.2 MG/DL (8.8-10.2); CARBON DIOXIDE LEVEL 27 MEQ/L (21-32); CHLORIDE LEVEL 108 MEQ/L (98-107); CREATININE FOR GFR 0.91 MG/DL (0.55-1.02); GLOMERULAR FILTRATION RATE > 60.0 (>45); GLUCOSE, FASTING 88 MG/DL (80-110); SODIUM LEVEL 142 MEQ/L (136-145)
== END ==
LOC: M ADMPAT 11:03
DX: Z01.818 Encounter for other preprocedural examination (principal); C34.11 Malignant neoplasm of upper lobe, right bronchus or lung
CPT/HCPCS: 82803

== ENCOUNTER → 2017-06-13 | Outpatient (CLI) | payer MEDICARE, MEDICAID ==
[~2017-06-13] MED LIST changes: -/ADVA50050 INH; -/DULO30CA OR; -/ONDA4TA; -ACET500C; -ADV500INH INH; -ALB2.5NEB INH; -ASPI1TAB PO; -ASPI81TA63 OR; -ATOR40TA75 PO; -BUTACAP78 PO; -DARV100T; -DEPA500T2; -DULO1CAP3 PO; -FIORICET OR; -FLEXERIL; -GAS1CHW PO; +GASTROGRAFIN SOLUTION 30ML (Q9963) As Ordered; +ISOVUE-370 76% 100ML VIAL (Q9967) As Ordered; -LIDO5DIS TD; -MAGN1TAB25 PO; -MAGN500C PO; -MEMA1TAB PO; -METO1TAB32 PO; -MUCI600T37 PO; -Maxalt OR; -NEUR100C; -NEUR100C OR; -NEUR300C PO; -ONDA8TAB8 PO; -OXYC10TA12 PO; -OXYC30TA72 PO; -OXYC40TA29; -PLAV1TAB2 PO; -PLAV75TA2 OR; -PROAAER10 INH; -PROC5TA PO; -PROP10TAB OR; -PROT1TAB2 PO; -RABE1TAB PO; -ROPI0.5T PO; -SENN8.6T54 PO; -SKEL800T5 OR; -SOMA350T OR; -THERGRAN; -VENTAER INH; -VICODINES TAB OR; -VITATAB11 PO; -VOLT1GEL; -ZALE10CA PO; -ZANA4TAB PO; -ZOMI5TAB; -ZONI100C2 PO
== END ==
LOC: M RAD 14:59
DX: C34.11 Malignant neoplasm of upper lobe, right bronchus or lung (principal); D35.00 Benign neoplasm of unspecified adrenal gland; K57.30 Diverticulosis of large intestine without perforation or abscess without bleeding; Z98.0 Intestinal bypass and anastomosis status
CPT/HCPCS: Q9963

== ENCOUNTER 2017-06-20 05:53 | Inpatient (IN) | payer MEDICARE, MEDICAID ==
[2017-06-20] MEDS ORDERED: LR 1,000 ML IV (06:15)
[2017-06-20] MEDS ORDERED: LIDOCAINE 1% MDV 20ML VIAL SQ (06:15)
[2017-06-20 06:45] LABS: ABG BASE EXCESS -6.1 (-2.0-2.0); ABG HCO3 18.1 MEQ/L (22.0-26.0); ABG O2 SATURATION 96.5 % (95.0-99.0); ABG PARTIAL PRESSURE CO2 31.7 mmHg (35.0-45.0); ABG STANDARD HCO3 19.4 MEQ/L (22.0-26.0); ABG TOTAL CO2 19.1 MEQ/L (23.0-31.0); ABG pH (ARTERIAL) 7.375 UNITS (7.350-7.450)
[2017-06-20] MEDS ORDERED: fentaNYL 100 MCG/2 ML INJECTION (J3010) As Ordered (06:53)
[2017-06-20] MEDS ORDERED: MIDAZOLAM INJ 2 MG/2 ML VIAL (J2250) As Ordered ×2 (06:53→08:27)
[2017-06-20 07:02] LABS: CARBOXYHEMOGLOBIN 1.3 % (0.0-1.5)
[2017-06-20] MEDS: MIDAZOLAM INJ 2 MG/2 ML VIAL (J2250) IV (07:21)
[2017-06-20] MEDS: fentaNYL 100 MCG/2 ML INJECTION (J3010) IV (07:21)
[2017-06-20 07:39] LABS: ANION GAP 8 MEQ/L (8-16); BLOOD UREA NITROGEN 11 MG/DL (7-18); CALCIUM LEVEL 8.4 MG/DL (8.8-10.2); CARBON DIOXIDE LEVEL 25 MEQ/L (21-32); CHLORIDE LEVEL 108 MEQ/L (98-107); CREATININE FOR GFR 0.74 MG/DL (0.55-1.02); GLOMERULAR FILTRATION RATE > 60.0 (>45); GLUCOSE, FASTING 94 MG/DL (80-110); POTASSIUM SERUM 4.4 MEQ/L (3.5-5.1); SODIUM LEVEL 141 MEQ/L (136-145)
[2017-06-20] MEDS ORDERED: WALLBOXKEY XX (08:00)
[2017-06-20] MEDS ORDERED: NALOXONE INJ 0.4 MG/1 ML VIAL (J2310) IV (08:00)
[2017-06-20] MEDS ORDERED: EPIDURAL/PCA KEYS XX (08:00)
[2017-06-20] MEDS: CETACAINE SPRAY 5GM As Ordered (08:01)
[2017-06-20] MEDS: MUPIROCIN 2% OINT 22 GM TUBE TOP (08:19)
[2017-06-20] MEDS ORDERED: ROCURONIUM BROMIDE 50 MG/5 ML VIAL As Ordered ×2 (08:27→08:36)
[2017-06-20] MEDS ORDERED: BUPIVACAINE HCL 0.25% 30 ML VIAL As Ordered (08:27)
[2017-06-20] MEDS ORDERED: LIDOCAINE 2% INJ 100 MG/5 ML SDV (FOR ANES.) As Ordered (08:27)
[2017-06-20] MEDS ORDERED: fentaNYL 250 MCG/5 ML INJECTION (J3010) As Ordered (08:27)
[2017-06-20] MEDS ORDERED: PHENYLephrine HCL 500 MCG/5 ML (100MCG/ML) SYRINGE (J2370) As Ordered ×3 (08:27→11:37)
[2017-06-20] MEDS ORDERED: PROPOFOL 200 MG/20 ML VIAL As Ordered (08:27)
[2017-06-20] MEDS: ADVAIR HFA 230/21MCG INHALER INH ×2 (09:00→21:00)
[2017-06-20] MEDS ORDERED: NEOSTIGMINE 10 MG/10 ML VIAL (J2710) As Ordered (09:44)
[2017-06-20] MEDS ORDERED: GLYCOPYRROLATE INJ 0.2 MG/ML 2 ML VIAL As Ordered (09:44)
[2017-06-20] MEDS ORDERED: ONDANSETRON 4MG/2ML VIAL (J2405) As Ordered (09:44)
[2017-06-20] MEDS: BUPIVACAINE HCL 0.5% 30 ML VIAL As Ordered (11:31)
[2017-06-20] MEDS: BUPIVACAINE LIPOSOME/PF 1.3% 20 ML VIAL (13.3MG/ML)(EXPAREL) As Ordered (11:31)
[2017-06-20] MEDS ORDERED: BISACODYL 10 MG SUPP PR (12:00)
[2017-06-20 12:44] LABS: ABG HCO3 20.1 MEQ/L (22.0-26.0); ABG O2 SATURATION 93.6 % (95.0-99.0); ABG PARTIAL PRESSURE O2 77.5 mmHg (75.0-100.0); ABG STANDARD HCO3 19.5 MEQ/L (22.0-26.0); ABG TOTAL CO2 21.4 MEQ/L (23.0-31.0); ABG pH (ARTERIAL) 7.298 UNITS (7.350-7.450)
[2017-06-20] MEDS ORDERED: ONDANSETRON 4MG/2ML VIAL (J2405) IV (12:45)
[2017-06-20] MEDS ORDERED: fentaNYL 100 MCG/2 ML INJECTION (J3010) IV (12:45)
[2017-06-20] MEDS ORDERED: HYDROmorphone HCL 1 MG/ML SYRINGE (J1170) IV (12:45)
[2017-06-20 12:48] LABS: BASO % 0.1 % (0.0-1.0); HEMATOCRIT 31.7 % (36.0-47.0); HEMOGLOBIN 9.8 g/dl (12.0-16.0); IMMATURE GRANULOCYTE # 0.1 10^3/uL (0-0); IMMATURE GRANULOCYTE % 0.4 % (0-0); LYMPH # 0.9 10^3/uL (1.5-4.5); LYMPH % 6.4 % (24.0-44.0); MEAN CORPUSCULAR HEMOGLOBIN 27.5 pg (27.0-33.0); MEAN CORPUSCULAR HGB CONC 30.9 g/dl (32.0-36.5); MONO # 0.7 10^3/uL (0.0-0.8); MONO % 5.2 % (0.0-5.0); NEUTROPHILS # 12.3 10^3/uL (1.8-7.7); NEUTROPHILS % 87.9 % (36.0-66.0); PLATELET COUNT, AUTOMATED 241 10^3/uL (150-450); RED BLOOD COUNT 3.56 10^6/uL (4.00-5.40); RED CELL DISTRIBUTION WIDTH 17.8 % (11.5-14.5)
[2017-06-20] MEDS: KETOROLAC 30 MG/ML VIAL (J1885) IV ×2 (13:01→19:21)
[2017-06-20 13:09] LABS: ANION GAP 8 MEQ/L (8-16); BLOOD UREA NITROGEN 11 MG/DL (7-18); CALCIUM LEVEL 8.4 MG/DL (8.8-10.2); CARBON DIOXIDE LEVEL 23 MEQ/L (21-32); CHLORIDE LEVEL 109 MEQ/L (98-107); CREATININE FOR GFR 0.84 MG/DL (0.55-1.02); GLOMERULAR FILTRATION RATE > 60.0 (>45); GLUCOSE, FASTING 115 MG/DL (80-110); POTASSIUM SERUM 4.3 MEQ/L (3.5-5.1); SODIUM LEVEL 140 MEQ/L (136-145)
[2017-06-20] MEDS: NS 500 ML IV (13:45)
[2017-06-20] MEDS: LEVALBUTEROL 1.25 MG/0.5 ML CONCENTRATE NEB NEB ×2 (13:59→20:10)
[2017-06-20] MEDS: FENTANYL/BUPIVACAINE/NACL BAG 250 ML EPIDURAL (14:23)
[2017-06-20] MEDS: LR 1,000 ML IV (14:23)
[2017-06-20] MEDS: KCL 20MEQ IN D5/NS 1000ML 1,000 ML IV (14:46)
[2017-06-20] MEDS: METOPROLOL SUCC *XL* 25MG TAB (TopROL *XL*) PO (14:55)
[2017-06-20] MEDS: MOM 30ML SUSPENSION UDC PO (14:57)
[2017-06-20] MEDS: ATORVASTATIN 20 MG TAB PO (14:58)
[2017-06-20] MEDS: DOCUSATE SODIUM 100 MG CAP PO ×2 (14:58→21:21)
[2017-06-20] MEDS: HEPARIN SOD (PORCINE) 5000 UNITS/ML VIAL SC ×2 (14:59→21:22)
[2017-06-20] MEDS: VITAMIN B COMPLEX/VIT C CAP PO (15:09)
[2017-06-20] MEDS: ZONISAMIDE 100 MG CAP (ZONEGRAN) PO ×2 (15:09→21:22)
[2017-06-20] MEDS: PANTOPRAZOLE 40MG INJ (PROTONIX) (C9113) IV (15:10)
[2017-06-20] MEDS: PROCHLORPERAZINE 5 MG TAB (S0183) PO ×2 (15:10→21:22)
[2017-06-20] MEDS: CEFAZOLIN SOD 1 GM in APPROPRIATE DILUENT 1 EA IV (15:13)
[2017-06-20] MEDS: ONDANSETRON 4MG/2ML VIAL (J2405) IV (15:26)
[2017-06-21] MEDS: KCL 20MEQ IN D5/NS 1000ML 1,000 ML IV (00:37)
[2017-06-21] MEDS: CEFAZOLIN SOD 1 GM in APPROPRIATE DILUENT 1 EA IV ×3 (00:40→16:54)
[2017-06-21] MEDS: KETOROLAC 30 MG/ML VIAL (J1885) IV ×4 (00:42→18:30)
[2017-06-21] MEDS: ONDANSETRON 4MG/2ML VIAL (J2405) IV ×2 (01:38→08:45)
[2017-06-21] MEDS: LEVALBUTEROL 1.25 MG/0.5 ML CONCENTRATE NEB NEB ×4 (02:00→20:00)
[2017-06-21] MEDS: PHENYLEPHRINE HCL INJ 50 MG in D5W 500 ML IV ×3 (03:07→18:30)
[2017-06-21 03:39] LABS: ABG BASE EXCESS -2.8 (-2.0-2.0); ABG HCO3 22.3 MEQ/L (22.0-26.0); ABG O2 SATURATION 93.9 % (95.0-99.0); ABG PARTIAL PRESSURE O2 69.3 mmHg (75.0-100.0); ABG STANDARD HCO3 22.1 MEQ/L (22.0-26.0); ABG TOTAL CO2 23.6 MEQ/L (23.0-31.0); ABG pH (ARTERIAL) 7.365 UNITS (7.350-7.450)
[2017-06-21 05:18] LABS: BASO # 0.1 10^3/uL (0.0-0.2); BASO % 0.3 % (0.0-1.0); HEMATOCRIT 32.4 % (36.0-47.0); IMMATURE GRANULOCYTE # 0.1 10^3/uL (0-0); IMMATURE GRANULOCYTE % 0.6 % (0-0); LYMPH # 2.7 10^3/uL (1.5-4.5); LYMPH % 13.5 % (24.0-44.0); MEAN CORPUSCULAR HEMOGLOBIN 27.9 pg (27.0-33.0); MEAN CORPUSCULAR HGB CONC 30.9 g/dl (32.0-36.5); MEAN CORPUSCULAR VOLUME 90.3 fl (80.0-96.0); MONO # 1.7 10^3/uL (0.0-0.8); MONO % 8.6 % (0.0-5.0); NEUTROPHILS # 15.4 10^3/uL (1.8-7.7); PLATELET COUNT, AUTOMATED 315 10^3/uL (150-450); RED BLOOD COUNT 3.59 10^6/uL (4.00-5.40); RED CELL DISTRIBUTION WIDTH 18.6 % (11.5-14.5)
[2017-06-21 05:34] LABS: ANION GAP 7 MEQ/L (8-16); BLOOD UREA NITROGEN 10 MG/DL (7-18); CALCIUM LEVEL 7.8 MG/DL (8.8-10.2); CARBON DIOXIDE LEVEL 24 MEQ/L (21-32); CHLORIDE LEVEL 106 MEQ/L (98-107); CREATININE FOR GFR 1.03 MG/DL (0.55-1.02); GLUCOSE, FASTING 143 MG/DL (80-110); POTASSIUM SERUM 4.2 MEQ/L (3.5-5.1); SODIUM LEVEL 137 MEQ/L (136-145)
[2017-06-21] MEDS: PROCHLORPERAZINE 5 MG TAB (S0183) PO ×3 (06:51→21:51)
[2017-06-21] MEDS: D5/0.9%NACL 1000ML IV (08:29)
[2017-06-21] MEDS: HEPARIN SOD (PORCINE) 5000 UNITS/ML VIAL SC ×2 (08:45→21:52)
[2017-06-21] MEDS: MOM 30ML SUSPENSION UDC PO (08:45)
[2017-06-21] MEDS: VITAMIN B COMPLEX/VIT C CAP PO (08:46)
[2017-06-21] MEDS: ATORVASTATIN 20 MG TAB PO (08:46)
[2017-06-21] MEDS: ZONISAMIDE 100 MG CAP (ZONEGRAN) PO ×2 (08:46→21:51)
[2017-06-21] MEDS: DOCUSATE SODIUM 100 MG CAP PO ×2 (08:46→21:51)
[2017-06-21] MEDS: METOPROLOL SUCC *XL* 25MG TAB (TopROL *XL*) PO (08:46)
[2017-06-21] MEDS: PANTOPRAZOLE 40MG TAB (PROTONIX) PO (08:46)
[2017-06-21] MEDS: ADVAIR HFA 230/21MCG INHALER INH ×2 (09:00→20:01)
[2017-06-21] MEDS: FENTANYL/BUPIVACAINE/NACL BAG 250 ML EPIDURAL (09:09)
[2017-06-21] MEDS: METOCLOPRAMIDE INJ 10MG/2ML VIAL (J2765) IV (09:13)
[2017-06-21] MEDS: PANTOPRAZOLE 40MG INJ (PROTONIX) (C9113) IV (11:30)
[2017-06-21] MEDS: FUROSEMIDE 40 MG/4 ML VIAL (J1940) IV (14:02)
[2017-06-21] MEDS: diphenhydrAMINE INJ 50MG/ML VIAL (J1200) IV (21:56)
[2017-06-22] MEDS: CEFAZOLIN SOD 1 GM in APPROPRIATE DILUENT 1 EA IV ×2 (00:21→08:00)
[2017-06-22] MEDS: KETOROLAC 30 MG/ML VIAL (J1885) IV ×4 (00:22→18:17)
[2017-06-22] MEDS: LEVALBUTEROL 1.25 MG/0.5 ML CONCENTRATE NEB NEB ×4 (01:53→22:00)
[2017-06-22] MEDS: PHENYLEPHRINE HCL INJ 50 MG in D5W 500 ML IV ×3 (04:37→19:20)
[2017-06-22] MEDS: PROCHLORPERAZINE 5 MG TAB (S0183) PO ×3 (06:14→21:41)
[2017-06-22 06:34] LABS: ANION GAP 7 MEQ/L (8-16); BLOOD UREA NITROGEN 10 MG/DL (7-18); CALCIUM LEVEL 8.2 MG/DL (8.8-10.2); CARBON DIOXIDE LEVEL 26 MEQ/L (21-32); CHLORIDE LEVEL 106 MEQ/L (98-107); CREATININE FOR GFR 0.91 MG/DL (0.55-1.02); GLOMERULAR FILTRATION RATE > 60.0 (>45); GLUCOSE, FASTING 118 MG/DL (80-110); POTASSIUM SERUM 3.7 MEQ/L (3.5-5.1); SODIUM LEVEL 139 MEQ/L (136-145)
[2017-06-22 06:38] LABS: BASO % 0.3 % (0.0-1.0); EOS # 0.1 10^3/uL (0.0-0.50); HEMATOCRIT 33.5 % (36.0-47.0); HEMOGLOBIN 10.2 g/dl (12.0-16.0); IMMATURE GRANULOCYTE # 0.1 10^3/uL (0-0); IMMATURE GRANULOCYTE % 0.5 % (0-0); LYMPH # 1.8 10^3/uL (1.5-4.5); LYMPH % 16.6 % (24.0-44.0); MEAN CORPUSCULAR HEMOGLOBIN 27.8 pg (27.0-33.0); MEAN CORPUSCULAR HGB CONC 30.4 g/dl (32.0-36.5); MEAN CORPUSCULAR VOLUME 91.3 fl (80.0-96.0); MONO # 1.3 10^3/uL (0.0-0.8); NEUTROPHILS # 7.7 10^3/uL (1.8-7.7); NEUTROPHILS % 69.6 % (36.0-66.0); PLATELET COUNT, AUTOMATED 258 10^3/uL (150-450); RED BLOOD COUNT 3.67 10^6/uL (4.00-5.40); RED CELL DISTRIBUTION WIDTH 18.6 % (11.5-14.5)
[2017-06-22] MEDS: MOM 30ML SUSPENSION UDC PO (08:43)
[2017-06-22] MEDS: DOCUSATE SODIUM 100 MG CAP PO ×2 (08:43→21:41)
[2017-06-22] MEDS: ATORVASTATIN 20 MG TAB PO (08:43)
[2017-06-22] MEDS: ZONISAMIDE 100 MG CAP (ZONEGRAN) PO ×2 (08:43→21:41)
[2017-06-22] MEDS: HEPARIN SOD (PORCINE) 5000 UNITS/ML VIAL SC ×2 (08:44→21:41)
[2017-06-22] MEDS: PANTOPRAZOLE 40MG TAB (PROTONIX) PO (08:44)
[2017-06-22] MEDS: VITAMIN B COMPLEX/VIT C CAP PO (08:44)
[2017-06-22] MEDS: FENTANYL/BUPIVACAINE/NACL BAG 250 ML EPIDURAL (08:44)
[2017-06-22] MEDS: METOPROLOL SUCC *XL* 25MG TAB (TopROL *XL*) PO (09:00)
[2017-06-22] MEDS: ADVAIR HFA 230/21MCG INHALER INH ×2 (09:09→22:00)
[2017-06-22] MEDS: FUROSEMIDE 40 MG/4 ML VIAL (J1940) IV (10:30)
[2017-06-22] MEDS: SODIUM CHLORIDE HYPERTONIC 3% 15ML NEB SOL INH (13:49)
[2017-06-22] MEDS: DIGOXIN INJ 0.5 MG/2 ML AMP (J1160) IV ×2 (14:29→21:42)
[2017-06-22] MEDS: NICOTINE 21MG/24HR 1 EA TRANSDERMAL TD (16:24)
[2017-06-22] MEDS ORDERED: fentaNYL 100 MCG/2 ML INJECTION (J3010) As Ordered (23:45)
[2017-06-23] MEDS: fentaNYL 100 MCG/2 ML INJECTION (J3010) IV (00:57)
[2017-06-23] MEDS: KETOROLAC 30 MG/ML VIAL (J1885) IV ×4 (01:58→18:15)
[2017-06-23] MEDS: LEVALBUTEROL 1.25 MG/0.5 ML CONCENTRATE NEB NEB ×4 (02:00→20:00)
[2017-06-23 04:32] LABS: BASO % 0.2 % (0.0-1.0); EOS # 0.1 10^3/uL (0.0-0.50); HEMATOCRIT 27.6 % (36.0-47.0); HEMOGLOBIN 8.3 g/dl (12.0-16.0); IMMATURE GRANULOCYTE % 0.5 % (0-0); LYMPH # 1.4 10^3/uL (1.5-4.5); LYMPH % 15.7 % (24.0-44.0); MEAN CORPUSCULAR HEMOGLOBIN 27.2 pg (27.0-33.0); MEAN CORPUSCULAR HGB CONC 30.1 g/dl (32.0-36.5); MEAN CORPUSCULAR VOLUME 90.5 fl (80.0-96.0); MONO # 0.7 10^3/uL (0.0-0.8); MONO % 7.9 % (0.0-5.0); NEUTROPHILS # 6.5 10^3/uL (1.8-7.7); NEUTROPHILS % 74.7 % (36.0-66.0); PLATELET COUNT, AUTOMATED 221 10^3/uL (150-450); RED BLOOD COUNT 3.05 10^6/uL (4.00-5.40); RED CELL DISTRIBUTION WIDTH 18.1 % (11.5-14.5); WHITE BLOOD COUNT 8.7 10^3/uL (4.0-10.0)
[2017-06-23 04:38] LABS: ANION GAP 5 MEQ/L (8-16); BLOOD UREA NITROGEN 15 MG/DL (7-18); CARBON DIOXIDE LEVEL 27 MEQ/L (21-32); CHLORIDE LEVEL 104 MEQ/L (98-107); CREATININE FOR GFR 0.81 MG/DL (0.55-1.02); GLOMERULAR FILTRATION RATE > 60.0 (>45); GLUCOSE, FASTING 118 MG/DL (80-110); POTASSIUM SERUM 3.9 MEQ/L (3.5-5.1); SODIUM LEVEL 136 MEQ/L (136-145)
[2017-06-23] MEDS: DIGOXIN INJ 0.5 MG/2 ML AMP (J1160) IV (06:29)
[2017-06-23] MEDS: PROCHLORPERAZINE 5 MG TAB (S0183) PO ×3 (06:30→21:06)
[2017-06-23] MEDS: FENTANYL/BUPIVACAINE/NACL BAG 250 ML EPIDURAL (08:16)
[2017-06-23] MEDS: ADVAIR HFA 230/21MCG INHALER INH ×2 (08:43→20:18)
[2017-06-23] MEDS: SODIUM CHLORIDE HYPERTONIC 3% 15ML NEB SOL INH ×3 (08:43→23:11)
[2017-06-23] MEDS: DOCUSATE SODIUM 100 MG CAP PO ×2 (09:27→21:06)
[2017-06-23] MEDS: MOM 30ML SUSPENSION UDC PO (09:27)
[2017-06-23] MEDS: NICOTINE 21MG/24HR 1 EA TRANSDERMAL TD (09:27)
[2017-06-23] MEDS: HEPARIN SOD (PORCINE) 5000 UNITS/ML VIAL SC ×2 (09:27→21:07)
[2017-06-23] MEDS: PANTOPRAZOLE 40MG TAB (PROTONIX) PO (09:27)
[2017-06-23] MEDS: ZONISAMIDE 100 MG CAP (ZONEGRAN) PO ×2 (09:27→21:07)
[2017-06-23] MEDS: ATORVASTATIN 20 MG TAB PO (09:27)
[2017-06-23] MEDS: VITAMIN B COMPLEX/VIT C CAP PO (09:27)
[2017-06-23] MEDS: METOPROLOL SUCC *XL* 25MG TAB (TopROL *XL*) PO (09:28)
[2017-06-23] MEDS: PHENYLEPHRINE HCL INJ 50 MG in D5W 500 ML IV (11:58)
[2017-06-23] MEDS: FUROSEMIDE 40 MG/4 ML VIAL (J1940) IV (14:38)
[2017-06-24] MEDS: KETOROLAC 30 MG/ML VIAL (J1885) IV ×4 (00:02→18:00)
[2017-06-24] MEDS: LEVALBUTEROL 1.25 MG/0.5 ML CONCENTRATE NEB NEB ×4 (00:59→20:00)
[2017-06-24] MEDS ORDERED: FENTANYL 2MCG/ML BUPIVACAINE 0.0625% NACL 250ML IV BAG As Ordered (03:44)
[2017-06-24] MEDS: FENTANYL/BUPIVACAINE/NACL BAG 250 ML EPIDURAL (03:48)
[2017-06-24 04:25] LABS: BASO % 0.2 % (0.0-1.0); EOS # 0.1 10^3/uL (0.0-0.50); HEMOGLOBIN 7.7 g/dl (12.0-16.0); IMMATURE GRANULOCYTE # 0.1 10^3/uL (0-0); IMMATURE GRANULOCYTE % 0.6 % (0-0); LYMPH # 1.5 10^3/uL (1.5-4.5); LYMPH % 17.6 % (24.0-44.0); MEAN CORPUSCULAR HEMOGLOBIN 26.9 pg (27.0-33.0); MEAN CORPUSCULAR HGB CONC 30.8 g/dl (32.0-36.5); MEAN CORPUSCULAR VOLUME 87.4 fl (80.0-96.0); MONO # 0.8 10^3/uL (0.0-0.8); MONO % 9.1 % (0.0-5.0); NEUTROPHILS # 5.9 10^3/uL (1.8-7.7); NEUTROPHILS % 71.5 % (36.0-66.0); PLATELET COUNT, AUTOMATED 243 10^3/uL (150-450); RED BLOOD COUNT 2.86 10^6/uL (4.00-5.40); RED CELL DISTRIBUTION WIDTH 18.1 % (11.5-14.5); WHITE BLOOD COUNT 8.3 10^3/uL (4.0-10.0)
[2017-06-24 04:38] LABS: ANION GAP 6 MEQ/L (8-16); BLOOD UREA NITROGEN 16 MG/DL (7-18); CARBON DIOXIDE LEVEL 28 MEQ/L (21-32); CHLORIDE LEVEL 103 MEQ/L (98-107); CREATININE FOR GFR 0.86 MG/DL (0.55-1.02); GLOMERULAR FILTRATION RATE > 60.0 (>45); GLUCOSE, FASTING 119 MG/DL (80-110); SODIUM LEVEL 137 MEQ/L (136-145)
[2017-06-24] MEDS: PROCHLORPERAZINE 5 MG TAB (S0183) PO ×3 (05:56→22:04)
[2017-06-24] MEDS: ADVAIR HFA 230/21MCG INHALER INH ×2 (08:39→20:51)
[2017-06-24] MEDS: SODIUM CHLORIDE HYPERTONIC 3% 15ML NEB SOL INH ×2 (08:39→13:38)
[2017-06-24] MEDS: METOPROLOL SUCC *XL* 25MG TAB (TopROL *XL*) PO (09:18)
[2017-06-24] MEDS: ZONISAMIDE 100 MG CAP (ZONEGRAN) PO ×2 (09:56→19:59)
[2017-06-24] MEDS: DOCUSATE SODIUM 100 MG CAP PO ×2 (09:56→19:59)
[2017-06-24] MEDS: DIGOXIN 0.125 MG TAB PO (09:56)
[2017-06-24] MEDS: PANTOPRAZOLE 40MG TAB (PROTONIX) PO (09:56)
[2017-06-24] MEDS: ATORVASTATIN 20 MG TAB PO (09:56)
[2017-06-24] MEDS: VITAMIN B COMPLEX/VIT C CAP PO (09:56)
[2017-06-24] MEDS: MOM 30ML SUSPENSION UDC PO (09:57)
[2017-06-24] MEDS: FUROSEMIDE 40 MG/4 ML VIAL (J1940) IV ×2 (09:57→18:01)
[2017-06-24] MEDS: HEPARIN SOD (PORCINE) 5000 UNITS/ML VIAL SC ×2 (09:57→19:59)
[2017-06-24] MEDS: NICOTINE 21MG/24HR 1 EA TRANSDERMAL TD (09:57)
[2017-06-24] MEDS: ONDANSETRON 4MG/2ML VIAL (J2405) IV (19:59)
[2017-06-25] MEDS: KETOROLAC 30 MG/ML VIAL (J1885) IV ×2 (00:33→06:28)
[2017-06-25] MEDS: FENTANYL/BUPIVACAINE/NACL BAG 250 ML EPIDURAL (00:34)
[2017-06-25] MEDS: SODIUM CHLORIDE HYPERTONIC 3% 15ML NEB SOL INH ×4 (01:35→23:21)
[2017-06-25] MEDS: LEVALBUTEROL 1.25 MG/0.5 ML CONCENTRATE NEB NEB ×5 (01:36→23:21)
[2017-06-25 04:21] LABS: BASO % 0.2 % (0.0-1.0); EOS # 0.1 10^3/uL (0.0-0.50); EOS % 1.9 % (0.0-3.0); HEMATOCRIT 26.8 % (36.0-47.0); HEMOGLOBIN 8.2 g/dl (12.0-16.0); IMMATURE GRANULOCYTE % 0.6 % (0-0); LYMPH # 1.4 10^3/uL (1.5-4.5); LYMPH % 21.5 % (24.0-44.0); MEAN CORPUSCULAR HEMOGLOBIN 27.2 pg (27.0-33.0); MEAN CORPUSCULAR HGB CONC 30.6 g/dl (32.0-36.5); MEAN CORPUSCULAR VOLUME 88.7 fl (80.0-96.0); MONO # 0.6 10^3/uL (0.0-0.8); NEUTROPHILS # 4.2 10^3/uL (1.8-7.7); NEUTROPHILS % 65.8 % (36.0-66.0); PLATELET COUNT, AUTOMATED 231 10^3/uL (150-450); RED BLOOD COUNT 3.02 10^6/uL (4.00-5.40); WHITE BLOOD COUNT 6.4 10^3/uL (4.0-10.0)
[2017-06-25 04:41] LABS: ANION GAP 7 MEQ/L (8-16); BLOOD UREA NITROGEN 21 MG/DL (7-18); CALCIUM LEVEL 8.1 MG/DL (8.8-10.2); CARBON DIOXIDE LEVEL 29 MEQ/L (21-32); CHLORIDE LEVEL 102 MEQ/L (98-107); CREATININE FOR GFR 1.06 MG/DL (0.55-1.02); GLOMERULAR FILTRATION RATE 56.1 (>45); GLUCOSE, FASTING 110 MG/DL (80-110); POTASSIUM SERUM 3.9 MEQ/L (3.5-5.1); SODIUM LEVEL 138 MEQ/L (136-145)
[2017-06-25] MEDS: PROCHLORPERAZINE 5 MG TAB (S0183) PO ×3 (06:28→21:27)
[2017-06-25] MEDS: METOPROLOL SUCC *XL* 25MG TAB (TopROL *XL*) PO (09:00)
[2017-06-25] MEDS: NICOTINE 21MG/24HR 1 EA TRANSDERMAL TD (09:48)
[2017-06-25] MEDS: PHENYLEPHRINE HCL INJ 50 MG in D5W 500 ML IV (09:48)
[2017-06-25] MEDS: ATORVASTATIN 20 MG TAB PO (09:49)
[2017-06-25] MEDS: HEPARIN SOD (PORCINE) 5000 UNITS/ML VIAL SC ×2 (09:49→21:27)
[2017-06-25] MEDS: FUROSEMIDE 40 MG/4 ML VIAL (J1940) IV ×2 (09:49→17:45)
[2017-06-25] MEDS: PANTOPRAZOLE 40MG TAB (PROTONIX) PO (09:49)
[2017-06-25] MEDS: MOM 30ML SUSPENSION UDC PO (09:49)
[2017-06-25] MEDS: DIGOXIN 0.125 MG TAB PO (09:49)
[2017-06-25] MEDS: DOCUSATE SODIUM 100 MG CAP PO ×2 (09:50→21:27)
[2017-06-25] MEDS: ADVAIR HFA 230/21MCG INHALER INH ×2 (10:14→21:16)
[2017-06-25] MEDS: VITAMIN B COMPLEX/VIT C CAP PO (11:26)
[2017-06-25] MEDS: ZONISAMIDE 100 MG CAP (ZONEGRAN) PO ×2 (11:26→21:27)
[2017-06-26] MEDS: FENTANYL/BUPIVACAINE/NACL BAG 250 ML EPIDURAL (01:00)
[2017-06-26] MEDS: PROCHLORPERAZINE 5 MG TAB (S0183) PO ×3 (05:35→21:51)
[2017-06-26 06:50] LABS: CHLORIDE LEVEL 101 MEQ/L (98-107); POTASSIUM SERUM 3.8 MEQ/L (3.5-5.1); SODIUM LEVEL 137 MEQ/L (136-145)
[2017-06-26 06:53] LABS: CALCIUM LEVEL 8.3 MG/DL (8.8-10.2)
[2017-06-26 06:54] LABS: ANION GAP 6 MEQ/L (8-16); BLOOD UREA NITROGEN 16 MG/DL (7-18); CARBON DIOXIDE LEVEL 30 MEQ/L (21-32); GLUCOSE, FASTING 93 MG/DL (80-110)
[2017-06-26 06:56] LABS: BASO % 0.4 % (0.0-1.0); EOS # 0.1 10^3/uL (0.0-0.50); EOS % 1.7 % (0.0-3.0); HEMATOCRIT 25.5 % (36.0-47.0); IMMATURE GRANULOCYTE # 0.1 10^3/uL (0-0); IMMATURE GRANULOCYTE % 1.4 % (0-0); LYMPH # 1.6 10^3/uL (1.5-4.5); LYMPH % 22.4 % (24.0-44.0); MEAN CORPUSCULAR HEMOGLOBIN 27.5 pg (27.0-33.0); MEAN CORPUSCULAR HGB CONC 31.4 g/dl (32.0-36.5); MEAN CORPUSCULAR VOLUME 87.6 fl (80.0-96.0); MONO # 0.9 10^3/uL (0.0-0.8); MONO % 12.8 % (0.0-5.0); NEUTROPHILS # 4.3 10^3/uL (1.8-7.7); NEUTROPHILS % 61.3 % (36.0-66.0); PLATELET COUNT, AUTOMATED 274 10^3/uL (150-450); RED BLOOD COUNT 2.91 10^6/uL (4.00-5.40); WHITE BLOOD COUNT 7.1 10^3/uL (4.0-10.0)
[2017-06-26 06:57] LABS: CREATININE FOR GFR 0.78 MG/DL (0.55-1.02); GLOMERULAR FILTRATION RATE > 60.0 (>45)
[2017-06-26] MEDS: LEVALBUTEROL 1.25 MG/0.5 ML CONCENTRATE NEB NEB ×3 (07:15→23:18)
[2017-06-26] MEDS: SODIUM CHLORIDE HYPERTONIC 3% 15ML NEB SOL INH ×2 (07:15→23:18)
[2017-06-26] MEDS: ADVAIR HFA 230/21MCG INHALER INH ×2 (07:17→20:26)
[2017-06-26] MEDS: METOPROLOL SUCC *XL* 25MG TAB (TopROL *XL*) PO (09:00)
[2017-06-26] MEDS: NICOTINE 21MG/24HR 1 EA TRANSDERMAL TD (10:06)
[2017-06-26] MEDS: VITAMIN B COMPLEX/VIT C CAP PO (10:06)
[2017-06-26] MEDS: DOCUSATE SODIUM 100 MG CAP PO ×2 (10:07→20:34)
[2017-06-26] MEDS: DIGOXIN 0.125 MG TAB PO (10:07)
[2017-06-26] MEDS: ZONISAMIDE 100 MG CAP (ZONEGRAN) PO ×2 (10:07→20:34)
[2017-06-26] MEDS: MOM 30ML SUSPENSION UDC PO (10:08)
[2017-06-26] MEDS: ATORVASTATIN 20 MG TAB PO (10:08)
[2017-06-26] MEDS: PANTOPRAZOLE 40MG TAB (PROTONIX) PO (10:08)
[2017-06-26] MEDS: FUROSEMIDE 40 MG/4 ML VIAL (J1940) IV ×2 (10:10→18:00)
[2017-06-26] MEDS: HEPARIN SOD (PORCINE) 5000 UNITS/ML VIAL SC ×2 (10:11→20:33)
[2017-06-27] MEDS: ACETAMINOPHEN TAB 650MG DOSE (2X325MG) PO (00:28)
[2017-06-27] MEDS: PROCHLORPERAZINE 5 MG TAB (S0183) PO ×3 (05:19→21:48)
[2017-06-27] MEDS: FENTANYL/BUPIVACAINE/NACL BAG 250 ML EPIDURAL (07:33)
[2017-06-27] MEDS: NICOTINE 21MG/24HR 1 EA TRANSDERMAL TD (08:28)
[2017-06-27] MEDS: FUROSEMIDE 40 MG/4 ML VIAL (J1940) IV ×2 (08:29→17:50)
[2017-06-27] MEDS: HEPARIN SOD (PORCINE) 5000 UNITS/ML VIAL SC ×2 (08:29→21:49)
[2017-06-27] MEDS: ATORVASTATIN 20 MG TAB PO (08:29)
[2017-06-27] MEDS: ZONISAMIDE 100 MG CAP (ZONEGRAN) PO ×2 (08:29→21:48)
[2017-06-27] MEDS: DIGOXIN 0.125 MG TAB PO (08:30)
[2017-06-27] MEDS: DOCUSATE SODIUM 100 MG CAP PO ×2 (08:30→21:00)
[2017-06-27] MEDS: MOM 30ML SUSPENSION UDC PO (08:30)
[2017-06-27] MEDS: VITAMIN B COMPLEX/VIT C CAP PO (08:30)
[2017-06-27] MEDS: PANTOPRAZOLE 40MG TAB (PROTONIX) PO (08:30)
[2017-06-27] MEDS: METOPROLOL SUCC *XL* 25MG TAB (TopROL *XL*) PO (08:31)
[2017-06-27] MEDS: SODIUM CHLORIDE HYPERTONIC 3% 15ML NEB SOL INH ×2 (10:08→16:00)
[2017-06-27] MEDS: LEVALBUTEROL 1.25 MG/0.5 ML CONCENTRATE NEB NEB ×3 (10:08→21:21)
[2017-06-27] MEDS: ADVAIR HFA 230/21MCG INHALER INH ×2 (10:08→22:58)
[2017-06-28] MEDS: SODIUM CHLORIDE HYPERTONIC 3% 15ML NEB SOL INH ×4 (01:11→23:40)
[2017-06-28] MEDS: LEVALBUTEROL 1.25 MG/0.5 ML CONCENTRATE NEB NEB ×5 (01:28→23:41)
[2017-06-28] MEDS: ACETAMINOPHEN TAB 650MG DOSE (2X325MG) PO (02:35)
[2017-06-28] MEDS: FENTANYL/BUPIVACAINE/NACL BAG 250 ML EPIDURAL ×2 (03:35→07:30)
[2017-06-28] MEDS: PROCHLORPERAZINE 5 MG TAB (S0183) PO ×3 (06:00→21:09)
[2017-06-28 08:30] LABS: BASO % 0.2 % (0.0-1.0); EOS # 0.2 10^3/uL (0.0-0.50); EOS % 1.7 % (0.0-3.0); HEMATOCRIT 31.2 % (36.0-47.0); HEMOGLOBIN 9.8 g/dl (12.0-16.0); IMMATURE GRANULOCYTE # 0.3 10^3/uL (0-0); IMMATURE GRANULOCYTE % 3.1 % (0-0); LYMPH # 1.8 10^3/uL (1.5-4.5); MEAN CORPUSCULAR HEMOGLOBIN 27.1 pg (27.0-33.0); MEAN CORPUSCULAR HGB CONC 31.4 g/dl (32.0-36.5); MEAN CORPUSCULAR VOLUME 86.4 fl (80.0-96.0); MONO % 10.6 % (0.0-5.0); NEUTROPHILS # 5.8 10^3/uL (1.8-7.7); NEUTROPHILS % 64.4 % (36.0-66.0); PLATELET COUNT, AUTOMATED 330 10^3/uL (150-450); RED BLOOD COUNT 3.61 10^6/uL (4.00-5.40); RED CELL DISTRIBUTION WIDTH 17.5 % (11.5-14.5)
[2017-06-28 08:35] LABS: ANION GAP 8 MEQ/L (8-16); BLOOD UREA NITROGEN 18 MG/DL (7-18); CARBON DIOXIDE LEVEL 27 MEQ/L (21-32); CHLORIDE LEVEL 101 MEQ/L (98-107); CREATININE FOR GFR 0.88 MG/DL (0.55-1.02); GLOMERULAR FILTRATION RATE > 60.0 (>45); GLUCOSE, FASTING 107 MG/DL (80-110); POTASSIUM SERUM 3.5 MEQ/L (3.5-5.1); SODIUM LEVEL 136 MEQ/L (136-145)
[2017-06-28] MEDS: PANTOPRAZOLE 40MG TAB (PROTONIX) PO (08:50)
[2017-06-28] MEDS: ZONISAMIDE 100 MG CAP (ZONEGRAN) PO ×2 (08:50→20:28)
[2017-06-28] MEDS: VITAMIN B COMPLEX/VIT C CAP PO (08:50)
[2017-06-28] MEDS: ATORVASTATIN 20 MG TAB PO (08:50)
[2017-06-28] MEDS: METOPROLOL SUCC *XL* 25MG TAB (TopROL *XL*) PO (08:51)
[2017-06-28] MEDS: DIGOXIN 0.125 MG TAB PO (08:51)
[2017-06-28] MEDS: ADVAIR HFA 230/21MCG INHALER INH ×2 (08:54→20:45)
[2017-06-28] MEDS: DOCUSATE SODIUM 100 MG CAP PO ×2 (09:07→20:30)
[2017-06-28] MEDS: MOM 30ML SUSPENSION UDC PO (09:07)
[2017-06-28] MEDS: NICOTINE 21MG/24HR 1 EA TRANSDERMAL TD (09:08)
[2017-06-28] MEDS: FUROSEMIDE 40 MG/4 ML VIAL (J1940) IV (09:09)
[2017-06-28] MEDS: HEPARIN SOD (PORCINE) 5000 UNITS/ML VIAL SC ×2 (09:09→20:27)
[2017-06-28] MEDS: ONDANSETRON 4MG/2ML VIAL (J2405) IV (12:41)
[2017-06-28] MEDS: KETOROLAC 30 MG/ML VIAL (J1885) IV ×2 (15:49→20:29)
[2017-06-28] MEDS: NYSTATIN 500,000 U/5 ML SUSP UDC SS ×3 (15:49→20:26)
[2017-06-29] MEDS: FENTANYL/BUPIVACAINE/NACL BAG 250 ML EPIDURAL (01:19)
[2017-06-29] MEDS: KETOROLAC 30 MG/ML VIAL (J1885) IV ×4 (01:40→20:12)
[2017-06-29] MEDS: LEVALBUTEROL 1.25 MG/0.5 ML CONCENTRATE NEB NEB ×5 (02:00→23:47)
[2017-06-29 05:48] LABS: BASO % 0.3 % (0.0-1.0); EOS # 0.2 10^3/uL (0.0-0.50); HEMATOCRIT 29.1 % (36.0-47.0); IMMATURE GRANULOCYTE # 0.2 10^3/uL (0-0); IMMATURE GRANULOCYTE % 2.9 % (0-0); LYMPH # 1.4 10^3/uL (1.5-4.5); LYMPH % 17.4 % (24.0-44.0); MEAN CORPUSCULAR HGB CONC 30.9 g/dl (32.0-36.5); MEAN CORPUSCULAR VOLUME 87.4 fl (80.0-96.0); MONO # 0.7 10^3/uL (0.0-0.8); MONO % 9.3 % (0.0-5.0); NEUTROPHILS # 5.3 10^3/uL (1.8-7.7); NEUTROPHILS % 68.1 % (36.0-66.0); PLATELET COUNT, AUTOMATED 326 10^3/uL (150-450); RED BLOOD COUNT 3.33 10^6/uL (4.00-5.40); RED CELL DISTRIBUTION WIDTH 17.2 % (11.5-14.5); WHITE BLOOD COUNT 7.8 10^3/uL (4.0-10.0)
[2017-06-29 05:52] LABS: ANION GAP 9 MEQ/L (8-16); BLOOD UREA NITROGEN 27 MG/DL (7-18); CALCIUM LEVEL 8.7 MG/DL (8.8-10.2); CARBON DIOXIDE LEVEL 25 MEQ/L (21-32); CHLORIDE LEVEL 102 MEQ/L (98-107); CREATININE FOR GFR 1.02 MG/DL (0.55-1.02); GLOMERULAR FILTRATION RATE 58.7 (>45); GLUCOSE, FASTING 114 MG/DL (80-110); POTASSIUM SERUM 3.4 MEQ/L (3.5-5.1); SODIUM LEVEL 136 MEQ/L (136-145)
[2017-06-29] MEDS: PROCHLORPERAZINE 5 MG TAB (S0183) PO ×3 (06:24→22:48)
[2017-06-29] MEDS: SODIUM CHLORIDE HYPERTONIC 3% 15ML NEB SOL INH ×3 (08:20→23:47)
[2017-06-29] MEDS: ADVAIR HFA 230/21MCG INHALER INH ×2 (08:20→20:45)
[2017-06-29] MEDS: METOPROLOL SUCC *XL* 25MG TAB (TopROL *XL*) PO (08:29)
[2017-06-29] MEDS: NICOTINE 21MG/24HR 1 EA TRANSDERMAL TD (09:00)
[2017-06-29] MEDS: MOM 30ML SUSPENSION UDC PO (09:00)
[2017-06-29] MEDS: DOCUSATE SODIUM 100 MG CAP PO ×2 (09:00→20:09)
[2017-06-29] MEDS: FUROSEMIDE 40 MG/4 ML VIAL (J1940) IV (09:00)
[2017-06-29] MEDS: NYSTATIN 500,000 U/5 ML SUSP UDC SS ×4 (09:08→20:10)
[2017-06-29] MEDS: PANTOPRAZOLE 40MG TAB (PROTONIX) PO (09:09)
[2017-06-29] MEDS: HEPARIN SOD (PORCINE) 5000 UNITS/ML VIAL SC ×2 (09:09→20:11)
[2017-06-29] MEDS: VITAMIN B COMPLEX/VIT C CAP PO (09:10)
[2017-06-29] MEDS: ZONISAMIDE 100 MG CAP (ZONEGRAN) PO ×2 (09:10→20:12)
[2017-06-29] MEDS: ATORVASTATIN 20 MG TAB PO (09:10)
[2017-06-29] MEDS: POTASSIUM CHLORIDE 10 MEQ SR TABLET PO ×2 (10:31→20:12)
[2017-06-30] MEDS: KETOROLAC 30 MG/ML VIAL (J1885) IV ×4 (02:44→20:52)
[2017-06-30 05:45] LABS: BASO % 0.3 % (0.0-1.0); EOS # 0.2 10^3/uL (0.0-0.50); HEMATOCRIT 27.5 % (36.0-47.0); HEMOGLOBIN 8.6 g/dl (12.0-16.0); IMMATURE GRANULOCYTE # 0.2 10^3/uL (0-0); IMMATURE GRANULOCYTE % 2.6 % (0-0); LYMPH # 1.8 10^3/uL (1.5-4.5); LYMPH % 21.3 % (24.0-44.0); MEAN CORPUSCULAR HEMOGLOBIN 27.1 pg (27.0-33.0); MEAN CORPUSCULAR HGB CONC 31.3 g/dl (32.0-36.5); MEAN CORPUSCULAR VOLUME 86.8 fl (80.0-96.0); MONO # 0.8 10^3/uL (0.0-0.8); MONO % 8.8 % (0.0-5.0); NEUTROPHILS # 5.6 10^3/uL (1.8-7.7); PLATELET COUNT, AUTOMATED 338 10^3/uL (150-450); RED BLOOD COUNT 3.17 10^6/uL (4.00-5.40); RED CELL DISTRIBUTION WIDTH 17.1 % (11.5-14.5); WHITE BLOOD COUNT 8.6 10^3/uL (4.0-10.0)
[2017-06-30 06:07] LABS: ANION GAP 9 MEQ/L (8-16); BLOOD UREA NITROGEN 26 MG/DL (7-18); CALCIUM LEVEL 8.6 MG/DL (8.8-10.2); CARBON DIOXIDE LEVEL 26 MEQ/L (21-32); CHLORIDE LEVEL 101 MEQ/L (98-107); CREATININE FOR GFR 0.91 MG/DL (0.55-1.02); GLOMERULAR FILTRATION RATE > 60.0 (>45); GLUCOSE, FASTING 111 MG/DL (80-110); POTASSIUM SERUM 3.5 MEQ/L (3.5-5.1); SODIUM LEVEL 136 MEQ/L (136-145)
[2017-06-30] MEDS: PROCHLORPERAZINE 5 MG TAB (S0183) PO ×3 (06:41→22:54)
[2017-06-30] MEDS: LEVALBUTEROL 1.25 MG/0.5 ML CONCENTRATE NEB NEB ×4 (08:00→23:47)
[2017-06-30] MEDS: DOCUSATE SODIUM 100 MG CAP PO ×2 (09:00→21:00)
[2017-06-30] MEDS: SODIUM CHLORIDE HYPERTONIC 3% 15ML NEB SOL INH ×3 (09:03→23:47)
[2017-06-30] MEDS: ADVAIR HFA 230/21MCG INHALER INH ×2 (09:03→21:11)
[2017-06-30] MEDS: MOM 30ML SUSPENSION UDC PO (09:36)
[2017-06-30] MEDS: POTASSIUM CHLORIDE 10 MEQ SR TABLET PO ×2 (09:37→20:53)
[2017-06-30] MEDS: ATORVASTATIN 20 MG TAB PO (09:37)
[2017-06-30] MEDS: NYSTATIN 500,000 U/5 ML SUSP UDC SS ×4 (09:37→20:52)
[2017-06-30] MEDS: PANTOPRAZOLE 40MG TAB (PROTONIX) PO (09:38)
[2017-06-30] MEDS: ZONISAMIDE 100 MG CAP (ZONEGRAN) PO ×2 (09:38→20:52)
[2017-06-30] MEDS: METOPROLOL SUCC *XL* 25MG TAB (TopROL *XL*) PO (09:38)
[2017-06-30] MEDS: VITAMIN B COMPLEX/VIT C CAP PO (09:38)
[2017-06-30] MEDS: NICOTINE 21MG/24HR 1 EA TRANSDERMAL TD (09:39)
[2017-06-30] MEDS: HEPARIN SOD (PORCINE) 5000 UNITS/ML VIAL SC ×2 (09:49→20:52)
[2017-06-30] MEDS: PERCOCET 5MG/325MG TAB PO ×3 (14:45→22:55)
[2017-06-30] MEDS: NORCO, ANEXSIA 5/325MG TABLET (HYDROcodone/ACETAMINOPHEN) PO ×2 (16:16→20:55)
[2017-07-01] MEDS: KETOROLAC 30 MG/ML VIAL (J1885) IV ×4 (02:41→20:23)
[2017-07-01] MEDS: NORCO, ANEXSIA 5/325MG TABLET (HYDROcodone/ACETAMINOPHEN) PO ×2 (02:42→09:32)
[2017-07-01 04:38] LABS: BASO % 0.2 % (0.0-1.0); EOS # 0.2 10^3/uL (0.0-0.50); EOS % 1.9 % (0.0-3.0); HEMATOCRIT 26.9 % (36.0-47.0); HEMOGLOBIN 8.3 g/dl (12.0-16.0); IMMATURE GRANULOCYTE # 0.2 10^3/uL (0-0); IMMATURE GRANULOCYTE % 2.2 % (0-0); LYMPH # 1.8 10^3/uL (1.5-4.5); LYMPH % 20.7 % (24.0-44.0); MEAN CORPUSCULAR HEMOGLOBIN 26.9 pg (27.0-33.0); MEAN CORPUSCULAR HGB CONC 30.9 g/dl (32.0-36.5); MEAN CORPUSCULAR VOLUME 87.3 fl (80.0-96.0); MONO # 0.8 10^3/uL (0.0-0.8); MONO % 8.9 % (0.0-5.0); NEUTROPHILS # 5.6 10^3/uL (1.8-7.7); NEUTROPHILS % 66.1 % (36.0-66.0); PLATELET COUNT, AUTOMATED 326 10^3/uL (150-450); RED BLOOD COUNT 3.08 10^6/uL (4.00-5.40); RED CELL DISTRIBUTION WIDTH 17.2 % (11.5-14.5); WHITE BLOOD COUNT 8.5 10^3/uL (4.0-10.0)
[2017-07-01 04:58] LABS: ANION GAP 9 MEQ/L (8-16); BLOOD UREA NITROGEN 26 MG/DL (7-18); CALCIUM LEVEL 8.3 MG/DL (8.8-10.2); CARBON DIOXIDE LEVEL 24 MEQ/L (21-32); CHLORIDE LEVEL 108 MEQ/L (98-107); CREATININE FOR GFR 0.89 MG/DL (0.55-1.02); GLOMERULAR FILTRATION RATE > 60.0 (>45); GLUCOSE, FASTING 144 MG/DL (80-110); POTASSIUM SERUM 3.7 MEQ/L (3.5-5.1); SODIUM LEVEL 141 MEQ/L (136-145)
[2017-07-01] MEDS: PROCHLORPERAZINE 5 MG TAB (S0183) PO ×3 (05:50→21:44)
[2017-07-01] MEDS: PERCOCET 5MG/325MG TAB PO ×2 (05:51→18:13)
[2017-07-01] MEDS: ONDANSETRON 4MG/2ML VIAL (J2405) IV ×2 (07:27→12:36)
[2017-07-01] MEDS: SODIUM CHLORIDE HYPERTONIC 3% 15ML NEB SOL INH (08:00)
[2017-07-01] MEDS: ADVAIR HFA 230/21MCG INHALER INH ×2 (09:00→20:55)
[2017-07-01] MEDS: HEPARIN SOD (PORCINE) 5000 UNITS/ML VIAL SC ×2 (09:17→20:21)
[2017-07-01] MEDS: NYSTATIN 500,000 U/5 ML SUSP UDC SS ×4 (09:18→20:20)
[2017-07-01] MEDS: VITAMIN B COMPLEX/VIT C CAP PO (09:18)
[2017-07-01] MEDS: POTASSIUM CHLORIDE 10 MEQ SR TABLET PO ×2 (09:19→20:21)
[2017-07-01] MEDS: PANTOPRAZOLE 40MG TAB (PROTONIX) PO (09:19)
[2017-07-01] MEDS: ZONISAMIDE 100 MG CAP (ZONEGRAN) PO ×2 (09:19→20:20)
[2017-07-01] MEDS: ATORVASTATIN 20 MG TAB PO (09:19)
[2017-07-01] MEDS: METOPROLOL SUCC *XL* 25MG TAB (TopROL *XL*) PO (09:20)
[2017-07-01] MEDS: MOM 30ML SUSPENSION UDC PO (09:20)
[2017-07-01] MEDS: NICOTINE 21MG/24HR 1 EA TRANSDERMAL TD (09:25)
[2017-07-01] MEDS: DOCUSATE SODIUM 100 MG CAP PO ×2 (09:31→20:21)
[2017-07-01] MEDS: LEVALBUTEROL 1.25 MG/0.5 ML CONCENTRATE NEB NEB ×3 (12:19→20:00)
[2017-07-02] MEDS: LEVALBUTEROL 1.25 MG/0.5 ML CONCENTRATE NEB NEB ×3 (00:22→13:25)
[2017-07-02] MEDS: SODIUM CHLORIDE HYPERTONIC 3% 15ML NEB SOL INH ×2 (00:22→08:21)
[2017-07-02] MEDS: KETOROLAC 30 MG/ML VIAL (J1885) IV ×2 (02:00→08:00)
[2017-07-02 05:22] LABS: BASO % 0.2 % (0.0-1.0); EOS # 0.1 10^3/uL (0.0-0.50); EOS % 1.6 % (0.0-3.0); HEMATOCRIT 25.6 % (36.0-47.0); IMMATURE GRANULOCYTE # 0.1 10^3/uL (0-0); IMMATURE GRANULOCYTE % 1.2 % (0-0); LYMPH # 1.8 10^3/uL (1.5-4.5); MEAN CORPUSCULAR HEMOGLOBIN 27.2 pg (27.0-33.0); MEAN CORPUSCULAR HGB CONC 31.3 g/dl (32.0-36.5); MEAN CORPUSCULAR VOLUME 87.1 fl (80.0-96.0); MONO # 0.7 10^3/uL (0.0-0.8); MONO % 7.6 % (0.0-5.0); NEUTROPHILS # 5.9 10^3/uL (1.8-7.7); NEUTROPHILS % 68.4 % (36.0-66.0); PLATELET COUNT, AUTOMATED 313 10^3/uL (150-450); RED BLOOD COUNT 2.94 10^6/uL (4.00-5.40); RED CELL DISTRIBUTION WIDTH 17.1 % (11.5-14.5); WHITE BLOOD COUNT 8.7 10^3/uL (4.0-10.0)
[2017-07-02] MEDS: PROCHLORPERAZINE 5 MG TAB (S0183) PO (05:27)
[2017-07-02 05:43] LABS: ANION GAP 6 MEQ/L (8-16); BLOOD UREA NITROGEN 23 MG/DL (7-18); CALCIUM LEVEL 8.4 MG/DL (8.8-10.2); CARBON DIOXIDE LEVEL 25 MEQ/L (21-32); CHLORIDE LEVEL 108 MEQ/L (98-107); CREATININE FOR GFR 0.86 MG/DL (0.55-1.02); GLOMERULAR FILTRATION RATE > 60.0 (>45); GLUCOSE, FASTING 99 MG/DL (80-110); POTASSIUM SERUM 4.7 MEQ/L (3.5-5.1); SODIUM LEVEL 139 MEQ/L (136-145)
[2017-07-02] MEDS: ADVAIR HFA 230/21MCG INHALER INH (08:21)
[2017-07-02] MEDS: DOCUSATE SODIUM 100 MG CAP PO (08:44)
[2017-07-02] MEDS: PANTOPRAZOLE 40MG TAB (PROTONIX) PO (08:45)
[2017-07-02] MEDS: POTASSIUM CHLORIDE 10 MEQ SR TABLET PO (08:45)
[2017-07-02] MEDS: ATORVASTATIN 20 MG TAB PO (08:45)
[2017-07-02] MEDS: MOM 30ML SUSPENSION UDC PO (08:45)
[2017-07-02] MEDS: VITAMIN B COMPLEX/VIT C CAP PO (08:45)
[2017-07-02] MEDS: HEPARIN SOD (PORCINE) 5000 UNITS/ML VIAL SC (08:46)
[2017-07-02] MEDS: METOPROLOL SUCC *XL* 25MG TAB (TopROL *XL*) PO (08:46)
[2017-07-02] MEDS: NYSTATIN 500,000 U/5 ML SUSP UDC SS (08:46)
[2017-07-02] MEDS: ZONISAMIDE 100 MG CAP (ZONEGRAN) PO (08:46)
[2017-07-02] MEDS: NICOTINE 21MG/24HR 1 EA TRANSDERMAL TD (08:47)
== END 2017-07-02 14:12 | disposition home or self-care (01) | DRG 163 ==
LOC: M OR 05:53 → M PCU 06-27 16:10 → M ICU 14:15
PROVIDERS: Thoracic Surgery (Cardiothoracic Vascular Surgery)
PROC: 0BTC0ZZ Resection of Right Upper Lung Lobe, Open Approach (ICD-10-PCS; principal; 2017-06-20 07:30)
PROC: 07T70ZZ Resection of Thorax Lymphatic, Open Approach (ICD-10-PCS; 2017-06-20 07:30)
PROC: 0B9M8ZZ Drainage of Bilateral Lungs, Via Natural or Artificial Opening Endoscopic (ICD-10-PCS; 2017-06-20 07:30)
DX: C34.11 Malignant neoplasm of upper lobe, right bronchus or lung (principal); J86.0 Pyothorax with fistula; J95.812 Postprocedural air leak; J44.9 Chronic obstructive pulmonary disease, unspecified; F03.90 Unspecified dementia, unspecified severity, without behavioral disturbance, psychotic disturbance, mood disturbance, and anxiety; K21.9 Gastro-esophageal reflux disease without esophagitis; Z92.21 Personal history of antineoplastic chemotherapy; Z86.73 Personal history of transient ischemic attack (TIA), and cerebral infarction without residual deficits; Z85.038 Personal history of other malignant neoplasm of large intestine

== ENCOUNTER → 2017-07-09 | Outpatient (CLI) | payer MEDICARE, MEDICAID | LOC: M SMT 09:00 | DX: C34.11 Malignant neoplasm of upper lobe, right bronchus or lung (principal) | CPT/HCPCS: 71046 ==

== ENCOUNTER → 2017-07-23 | Outpatient (REF) | payer MEDICARE, MEDICAID ==
[2017-07-24 09:57] LABS: CARCINOEMBRYONIC ANTIGEN 0.9 NG/ML (<2.5)
== END ==
LOC: M LAB REF 13:37
DX: C18.9 Malignant neoplasm of colon, unspecified (principal)
CPT/HCPCS: 82378

== ENCOUNTER → 2017-07-30 | Outpatient (CLI) | payer MEDICARE, MEDICAID | LOC: M SMT 09:54 | DX: C34.11 Malignant neoplasm of upper lobe, right bronchus or lung (principal) | CPT/HCPCS: 71046 ==

== ENCOUNTER → 2017-08-13 | Outpatient (REF) | payer MEDICARE, MEDICAID ==
[2017-08-14 11:20] LABS: CARCINOEMBRYONIC ANTIGEN < 0.5 NG/ML (<2.5)
== END ==
LOC: M LAB REF 13:42
DX: C18.9 Malignant neoplasm of colon, unspecified (principal)
CPT/HCPCS: 82378

== ENCOUNTER → 2017-09-10 | Outpatient (REF) | payer MEDICARE, MEDICAID ==
[2017-09-10 13:40] LABS: MAGNESIUM LEVEL 2.4 MG/DL (1.8-2.4)
== END ==
LOC: M LAB REF 13:15
DX: C18.9 Malignant neoplasm of colon, unspecified (principal)
CPT/HCPCS: 82378

== ENCOUNTER → 2017-09-25 | Outpatient (CLI) | payer MEDICARE, MEDICAID | LOC: M EKG 10:55 | DX: C18.9 Malignant neoplasm of colon, unspecified (principal); I45.10 Unspecified right bundle-branch block; Z92.21 Personal history of antineoplastic chemotherapy | CPT/HCPCS: 93005 ==

== ENCOUNTER → 2017-10-12 | Outpatient (CLI) | payer MEDICARE, MEDICAID | LOC: M WHC 09:13 | DX: Z12.31 Encounter for screening mammogram for malignant neoplasm of breast (principal) | CPT/HCPCS: 77067 ==

== ENCOUNTER → 2017-10-16 | Outpatient (REF) | payer MEDICARE, MEDICAID ==
[2017-10-16 14:15] LABS: CARCINOEMBRYONIC ANTIGEN 2.4 NG/ML (<2.5)
== END ==
LOC: M LAB REF 13:11
DX: C19 Malignant neoplasm of rectosigmoid junction (principal); C34.90 Malignant neoplasm of unspecified part of unspecified bronchus or lung
CPT/HCPCS: 82378

== ENCOUNTER → 2017-11-06 | Outpatient (REF) | payer MEDICARE, MEDICAID ==
[2017-11-06 14:05] LABS: CARCINOEMBRYONIC ANTIGEN 2.4 NG/ML (<2.5)
== END ==
LOC: M LAB REF 13:27
DX: C19 Malignant neoplasm of rectosigmoid junction (principal); C34.90 Malignant neoplasm of unspecified part of unspecified bronchus or lung
CPT/HCPCS: 82378

== ENCOUNTER → 2017-11-28 | Outpatient (REF) | payer MEDICARE, MEDICAID | LOC: M LAB REF 17:38 | DX: C19 Malignant neoplasm of rectosigmoid junction (principal); C34.90 Malignant neoplasm of unspecified part of unspecified bronchus or lung | CPT/HCPCS: 82378 ==

== ENCOUNTER → 2017-11-30 | Outpatient (CLI) | payer MEDICARE, MEDICAID | LOC: M RAD 08:09 | DX: R22.2 Localized swelling, mass and lump, trunk (principal); Z85.118 Personal history of other malignant neoplasm of bronchus and lung; Z85.038 Personal history of other malignant neoplasm of large intestine; M79.621 Pain in right upper arm | CPT/HCPCS: 93971 ==

== ENCOUNTER → 2017-12-03 | Outpatient (CLI) | payer MEDICARE, MEDICAID | LOC: M RAD 14:45 | DX: C34.11 Malignant neoplasm of upper lobe, right bronchus or lung (principal) | CPT/HCPCS: Q9963 ==

== ENCOUNTER → 2017-12-05 | Outpatient (REF) | payer MEDICARE, MEDICAID ==
[2017-12-05 17:14] LABS: INR 0.97
[2017-12-05 17:15] LABS: PARTIAL THROMBOPLASTIN TIME 29.1 SECONDS (25.4-37.6)
== END ==
LOC: M LAB REF 16:23
DX: C19 Malignant neoplasm of rectosigmoid junction (principal); C34.90 Malignant neoplasm of unspecified part of unspecified bronchus or lung
CPT/HCPCS: 85610

== ENCOUNTER → 2017-12-17 | Outpatient (CLI) | payer MEDICARE, MEDICAID ==
[~2017-12-17] MED LIST changes: -GASTROGRAFIN SOLUTION 30ML (Q9963) As Ordered; -ISOVUE-370 76% 100ML VIAL (Q9967) As Ordered; +LIDOCAINE 1% MDV 20ML VIAL As Ordered
== END ==
LOC: M RADPRO 07:55
DX: C79.89 Secondary malignant neoplasm of other specified sites (principal); R22.2 Localized swelling, mass and lump, trunk; Z88.5 Allergy status to narcotic agent; Z79.02 Long term (current) use of antithrombotics/antiplatelets; Z79.899 Other long term (current) drug therapy
CPT/HCPCS: 21550

== ENCOUNTER → 2017-12-20 | Outpatient (CLI) | payer MEDICARE, MEDICAID ==
[2017-12-20 12:52] LABS: HEMATOCRIT 35.5 % (36.0-47.0); HEMOGLOBIN 10.5 g/dl (12.0-15.5); MEAN CORPUSCULAR HEMOGLOBIN 25.2 pg (27.0-33.0); MEAN CORPUSCULAR HGB CONC 29.6 g/dl (32.0-36.5); MEAN CORPUSCULAR VOLUME 85.3 fl (80.0-96.0); PLATELET COUNT, AUTOMATED 287 10^3/uL (150-450); RED BLOOD COUNT 4.16 10^6/uL (4.00-5.40); RED CELL DISTRIBUTION WIDTH 17.2 % (11.5-14.5); WHITE BLOOD COUNT 7.4 10^3/uL (4.0-10.0)
[2017-12-20 13:05] LABS: INR 0.97
[2017-12-20 13:06] LABS: PARTIAL THROMBOPLASTIN TIME 28.4 SECONDS (25.4-37.6)
[2017-12-20 13:08] LABS: ANION GAP 7 MEQ/L (8-16); BLOOD UREA NITROGEN 10 MG/DL (7-18); CALCIUM LEVEL 8.9 MG/DL (8.8-10.2); CARBON DIOXIDE LEVEL 29 MEQ/L (21-32); CHLORIDE LEVEL 105 MEQ/L (98-107); CREATININE FOR GFR 0.79 MG/DL (0.55-1.30); GLOMERULAR FILTRATION RATE > 60.0 (>45); GLUCOSE, FASTING 88 MG/DL (70-100); POTASSIUM SERUM 4.1 MEQ/L (3.5-5.1); SODIUM LEVEL 141 MEQ/L (136-145)
== END ==
LOC: M LAB 11:34
DX: Z01.818 Encounter for other preprocedural examination (principal); Z79.01 Long term (current) use of anticoagulants
CPT/HCPCS: 71046

== ENCOUNTER 2017-12-25 11:04 | Day surgery (SDC) | payer MEDICARE, MEDICAID ==
[2017-12-25] MEDS ORDERED: LR 1,000 ML IV ×4 (11:30→16:15)
[2017-12-25] MEDS ORDERED: LIDOCAINE 1% MDV 20ML VIAL SQ ×2 (11:30)
[2017-12-25] MEDS ORDERED: ISOVUE-370 76% 100ML VIAL (Q9967) As Ordered ×2 (12:52)
[2017-12-25] MEDS ORDERED: fentaNYL 100 MCG/2 ML INJECTION (J3010) As Ordered ×2 (14:27)
[2017-12-25] MEDS ORDERED: MIDAZOLAM INJ 2 MG/2 ML VIAL (J2250) As Ordered ×2 (14:27)
[2017-12-25] MEDS ORDERED: LIDOCAINE 2% INJ 100 MG/5 ML SDV (FOR ANES.) As Ordered ×2 (14:28)
[2017-12-25] MEDS ORDERED: PROPOFOL 200 MG/20 ML VIAL As Ordered ×2 (14:28)
[2017-12-25] MEDS: MUPIROCIN 2% OINT 22 GM TUBE TOP ×2 (15:00)
[2017-12-25] MEDS: BUPIVACAINE HCL 0.5% 10 ML VIAL As Ordered ×2 (15:15)
[2017-12-25] MEDS: BUPIVACAINE LIPOSOME/PF 1.3% 20 ML VIAL (13.3MG/ML)(EXPAREL) As Ordered ×2 (15:15)
[2017-12-25] MEDS: BUPIVACAINE/EPIN 0.5% 30 ML VIAL As Ordered ×2 (15:39)
[2017-12-25] MEDS ORDERED: ONDANSETRON 4MG/2ML VIAL (J2405) IV ×2 (16:15)
[2017-12-25] MEDS ORDERED: fentaNYL 100 MCG/2 ML INJECTION (J3010) IV ×2 (16:15)
[2017-12-25] MEDS ORDERED: PERCOCET 5MG/325MG TAB PO ×2 (16:15)
== END 2017-12-25 17:15 | disposition home or self-care (01) ==
LOC: M SDC 11:04
DX: C79.2 Secondary malignant neoplasm of skin (principal); C79.89 Secondary malignant neoplasm of other specified sites (principal); C34.11 Malignant neoplasm of upper lobe, right bronchus or lung; C20 Malignant neoplasm of rectum; Z86.73 Personal history of transient ischemic attack (TIA), and cerebral infarction without residual deficits; I10 Essential (primary) hypertension; G47.30 Sleep apnea, unspecified; K44.9 Diaphragmatic hernia without obstruction or gangrene; F32.9 Major depressive disorder, single episode, unspecified; E78.00 Pure hypercholesterolemia, unspecified; Z92.21 Personal history of antineoplastic chemotherapy; I69.318 Other symptoms and signs involving cognitive functions following cerebral infarction; Z88.8 Allergy status to other drugs, medicaments and biological substances; F17.210 Nicotine dependence, cigarettes, uncomplicated; Z79.899 Other long term (current) drug therapy
CPT/HCPCS: 11603

== ENCOUNTER → 2017-12-31 | Outpatient (CLI) | payer MEDICARE, MEDICAID | LOC: M ONCR 13:02 | DX: C18.9 Malignant neoplasm of colon, unspecified (principal); C34.90 Malignant neoplasm of unspecified part of unspecified bronchus or lung; C79.31 Secondary malignant neoplasm of brain | CPT/HCPCS: G0463 ==

== ENCOUNTER → 2018-01-01 | Outpatient (CLI) | payer MEDICARE, MEDICAID ==
[~2018-01-01] MED LIST changes: -LIDOCAINE 1% MDV 20ML VIAL As Ordered; +PROHANCE 279.3MG/ML 15ML VIAL (A9576) As Ordered
== END ==
LOC: M RAD 07:56
DX: C79.31 Secondary malignant neoplasm of brain (principal)
CPT/HCPCS: A9576

== ENCOUNTER → 2018-01-08 | Outpatient (CLI) | payer MEDICARE, MEDICAID | LOC: M PLARAD 13:59 | DX: C18.9 Malignant neoplasm of colon, unspecified (principal); C79.51 Secondary malignant neoplasm of bone | CPT/HCPCS: 78815 ==

== ENCOUNTER 2018-01-29 09:19 | Day surgery (SDC) | payer MEDICARE, MEDICAID ==
[2018-01-29 09:58] LABS: HEMATOCRIT 37.7 % (36.0-47.0); HEMOGLOBIN 11.5 g/dl (12.0-15.5); MEAN CORPUSCULAR HEMOGLOBIN 25.2 pg (27.0-33.0); MEAN CORPUSCULAR HGB CONC 30.5 g/dl (32.0-36.5); MEAN CORPUSCULAR VOLUME 82.5 fl (80.0-96.0); PLATELET COUNT, AUTOMATED 175 10^3/uL (150-450); RED BLOOD COUNT 4.57 10^6/uL (4.00-5.40); RED CELL DISTRIBUTION WIDTH 18.3 % (11.5-14.5); WHITE BLOOD COUNT 8.6 10^3/uL (4.0-10.0)
[2018-01-29 10:11] LABS: INR 0.89; PROTHROMBIN TIME 12.1 SECONDS (12.1-14.4)
[2018-01-29 10:12] LABS: PARTIAL THROMBOPLASTIN TIME 21.2 SECONDS (25.4-37.6)
[2018-01-29 10:16] LABS: ANION GAP 6 MEQ/L (8-16); BLOOD UREA NITROGEN 26 MG/DL (7-18); CALCIUM LEVEL 8.8 MG/DL (8.8-10.2); CARBON DIOXIDE LEVEL 31 MEQ/L (21-32); CHLORIDE LEVEL 104 MEQ/L (98-107); CREATININE FOR GFR 0.77 MG/DL (0.55-1.30); GLOMERULAR FILTRATION RATE > 60.0 (>45); GLUCOSE, FASTING 81 MG/DL (70-100); SODIUM LEVEL 141 MEQ/L (136-145)
[2018-01-29] MEDS: LR 1,000 ML IV (10:30)
[2018-01-29] MEDS: LIDOCAINE 1% SDV INJ 30 ML VIAL As Ordered (13:11)
[2018-01-29] MEDS: LIDOCAINE W/EPINEPHRINE 1% 20ML VIAL As Ordered (13:11)
[2018-01-29] MEDS: BUPIVACAINE HCL 0.5% 30 ML VIAL As Ordered (13:12)
[2018-01-29] MEDS: BUPIVACAINE HCL 0.25% 30 ML VIAL As Ordered (13:12)
[2018-01-29] MEDS: MUPIROCIN 2% OINT 22 GM TUBE TOP (13:19)
[2018-01-29] MEDS: BUPIVACAINE LIPOSOME/PF 1.3% 20 ML VIAL (13.3MG/ML)(EXPAREL) As Ordered (13:20)
[2018-01-29] MEDS ORDERED: ONDANSETRON 4MG/2ML VIAL (J2405) As Ordered ×2 (13:28→15:13)
[2018-01-29] MEDS ORDERED: fentaNYL 100 MCG/2 ML INJECTION (J3010) As Ordered (13:29)
[2018-01-29] MEDS ORDERED: MIDAZOLAM INJ 2 MG/2 ML VIAL (J2250) As Ordered (13:29)
[2018-01-29] MEDS ORDERED: LIDOCAINE 2% INJ 100 MG/5 ML SDV (FOR ANES.) As Ordered (13:29)
[2018-01-29] MEDS ORDERED: LR 1,000 ML IV (14:00)
[2018-01-29] MEDS ORDERED: ONDANSETRON 4MG/2ML VIAL (J2405) IV ×2 (14:00→15:30)
[2018-01-29] MEDS ORDERED: PERCOCET 5MG/325MG TAB PO ×2 (14:00)
[2018-01-29] MEDS ORDERED: fentaNYL 100 MCG/2 ML INJECTION (J3010) IV (14:00)
== END 2018-01-29 16:30 | disposition home or self-care (01) ==
LOC: M SDC 09:19
DX: C34.11 Malignant neoplasm of upper lobe, right bronchus or lung (principal); C44.529 Squamous cell carcinoma of skin of other part of trunk; Z86.73 Personal history of transient ischemic attack (TIA), and cerebral infarction without residual deficits; I69.311 Memory deficit following cerebral infarction; Z79.899 Other long term (current) drug therapy
CPT/HCPCS: 19260